=== PATIENT | male | born 1965 | race Caucasian/White ===

== ENCOUNTER → 2016-08-17 | Outpatient (CLI) | payer OTHER ==
[~2016-08-17] MED LIST: /LINE60TA; ACET-71 PO; ASPI32ECTA PO; B12-1CHW PO; BACI500O8 TOP; BACT800T; CLEO150C PO; COLA100C PO; DILA2TAB2 PO; DIVA500T9 PO; FERR325T3 PO; FLUO40CA PO; GEOD40CA; HEPA100PFS INJ; HYDR-3713 PO; HYDR25TAB PO; LIPI80TA PO; LISI-538 PO; NORCOTAB PO; OMEP20CA3 PO; PANT40TA2 PO; PEPCID; PRIN20TA3 PO; PROZ40CA; SALI0.9I2 IV; TYLE325T5 PO; VALI5TAB PO; VANC10005 IV; VICO5TAB; VICO5TAB16 PO; VITA100037 PO
--- NOTE | 2016-08-17 10:08 | REP ---
MR CERVICAL SPINE WITHOUT CONTRAST: HISTORY: Neck pain. COMPARISON: 06/05/2016 A disc bulge is present at the C2-3 level. There is minimal effacement of the thecal sac without spinal cord compression. The C2 neural foramina are patent. The patient is status post C3 to C6 anterior spinal fusion. A fixation plate and bone graft material are present. Bilateral uncinate process hypertrophy is present at the C3-4 level. This produces moderate narrowing of the C3 neural foramina. The spinal canal at the C3-4 through C5-6 levels is patent. A disc bulge is present at the C6-7 level. There is minimal effacement of the thecal sac without spinal cord compression. The C6 and remaining neural foramina are patent. There is no other disc bulge or herniation. The spinal cord is normal in signal intensity. There is no intradural extramedullary lesion. Normal signal intensity is present in the cervical vertebral bodies. There is subluxation. IMPRESSION: 1. The patient is status post C3 to C6 anterior spinal fusion. There is anatomic alignment of the cervical spine. 2. There is cervical spondylosis at the C2-3, C3-4 and C6-7 levels without spinal cord compression. Signed by Brad Carter MD 08/17/2016 10:10 A
== END ==
LOC: M RAD 08:16
PROVIDERS: ATTEND Neurological Surgery
DX: M47.892 Other spondylosis, cervical region (principal); Z98.1 Arthrodesis status

== ENCOUNTER → 2016-08-26 | Outpatient (CLI) | payer OTHER ==
--- NOTE | 2016-08-27 08:39 | REP ---
MRI LUMBAR SPINE WITHOUT CONTRAST: HISTORY: Spondylosis. Decreased signal intensity on T2-weighted images is present in the L2-3 through L4-5 intervertebral discs. The discs are decreased in height. These findings are consistent with disc degeneration. There is no disc bulge or herniation at the L1-2 and L5-S1 levels. There is hypertrophy of the posterior articulating facets at the L5-S1 level. The nerves exit the neural foramina without compression. A diffuse disc bulge is present at the L1-2 level. There is minimal compression of the thecal sac. There is hypertrophy of the posterior articulating facets. The L2 nerves exit the neural foramina without compression. A diffuse disc bulge is present at the L3-4 level. There is minimal compression of the thecal sac. There is hypertrophy of the posterior articulating facets. The L3 nerves exit the neural foramina without compression. A diffuse disc bulge and small central disc protrusion are present at the L4-5 level. There is minimal compression of the thecal sac. There is hypertrophy of the posterior articulating facets. The L4 nerves exit the neural foramina without compression. The conus medullaris is normal in appearance terminating at the level of the L1-2 intervertebral disc. Normal signal intensity is present in the lumbar vertebral bodies. IMPRESSION: 1. Diffuse disc bulges at the L2-3 and L3-4 levels with minimal thecal sac compression. 2. Diffuse disc bulge and small central disc protrusion at the L4-5 level with minimal thecal sac compression. Signed by Brad Carter MD 08/27/2016 09:05 A
== END ==
LOC: M RAD 16:52
PROVIDERS: ATTEND Neurological Surgery
DX: M47.896 Other spondylosis, lumbar region (principal); M51.26 Other intervertebral disc displacement, lumbar region

== ENCOUNTER → 2016-09-03 | Outpatient (REF) | payer OTHER ==
[2016-09-03 19:23] LABS: MEAN CORPUSCULAR HEMOGLOBIN 21.1 pg (27.0-33.0); MEAN CORPUSCULAR HGB CONC 28.5 g/dl (32.0-36.5); RED CELL DISTRIBUTION WIDTH 17.1 % (11.5-14.5); RETIC HEMOGLOBIN CONTENT CHr 23.7 PG (24-36); RETICULOCYTE % ADVIA2120 1.4 % (0.5-1.5); WHITE BLOOD COUNT 9.8 K/mm3 (4.0-10.0)
[2016-09-03 19:36] LABS: ALBUMIN 3.6 GM/DL (3.2-5.2); ALBUMIN/GLOBULIN RATIO 1.29 (1.00-1.93); ALKALINE PHOSPHATASE 101 U/L (45-117); ALT/SGPT 18 U/L (12-78); ANION GAP 8 MEQ/L (8-16); AST/SGOT 13 U/L (15-37); BILIRUBIN,TOTAL 0.3 MG/DL (0.2-1.0); BLOOD UREA NITROGEN 9 MG/DL (7-18); CALCIUM LEVEL 8.7 MG/DL (8.5-10.1); CARBON DIOXIDE LEVEL 30 MEQ/L (21-32); CHLORIDE LEVEL 104 MEQ/L (98-107); CHOLESTEROL LEVEL 106 MG/DL (<200); CREATININE FOR GFR 1.09 MG/DL (0.70-1.30); FERRITIN 4 NG/ML (26-388); FREE T4 1.07 NG/DL (0.76-1.46); GLOMERULAR FILTRATION RATE > 60.0 (>60); GLUCOSE, FASTING 137 MG/DL (70-105); PERCENT SATURATION 16.1 % (19.7-37.4); POTASSIUM SERUM 4.6 MEQ/L (3.5-5.1); SODIUM LEVEL 142 MEQ/L (136-145); TOTAL IRON BINDING CAPACITY 422 UG/DL (250-450); TOTAL PROTEIN 6.4 GM/DL (6.4-8.2); TRIGLYCERIDES LEVEL 75 MG/DL (<150)
[2016-09-03 19:50] LABS: VITAMIN B12 LEVEL 706 PG/ML (247-911)
== END ==
LOC: M SFHCADAM 13:57
PROVIDERS: ATTEND Family Medicine
DX: T81.4XXD Infection following a procedure, subsequent encounter (principal); Z98.1 Arthrodesis status; Z98.84 Bariatric surgery status; D50.0 Iron deficiency anemia secondary to blood loss (chronic); E78.5 Hyperlipidemia, unspecified

== ENCOUNTER → 2016-10-02 | Outpatient (CLI) | payer OTHER ==
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
== END ==
LOC: M PAIN 11:20
PROVIDERS: ATTEND Anesthesiology
DX: G89.21 Chronic pain due to trauma (principal); M96.1 Postlaminectomy syndrome, not elsewhere classified; Z98.1 Arthrodesis status; M54.12 Radiculopathy, cervical region; G43.709 Chronic migraine without aura, not intractable, without status migrainosus; I10 Essential (primary) hypertension; E78.00 Pure hypercholesterolemia, unspecified; K21.9 Gastro-esophageal reflux disease without esophagitis; D50.9 Iron deficiency anemia, unspecified; R00.1 Bradycardia, unspecified; I25.2 Old myocardial infarction; Z79.2 Long term (current) use of antibiotics; Z79.891 Long term (current) use of opiate analgesic; Z79.899 Other long term (current) drug therapy; Z88.5 Allergy status to narcotic agent; Z87.820 Personal history of traumatic brain injury; Z86.14 Personal history of Methicillin resistant Staphylococcus aureus infection; Z98.84 Bariatric surgery status

== ENCOUNTER → 2016-10-03 | Outpatient (CLI) | payer OTHER ==
--- NOTE | 2016-10-04 07:38 | REP ---
CERVICAL SPINE SERIES: Seven views of the cervical spine are performed. Patient has had prior anterior cervical discectomy and fusion with a metallic plate anteriorly bridging the C3 through the C6 levels, with disc spacers seen at the C3-4, C4-5 and C5-6 disc levels. There is mild disc space narrowing with anterior and posterior osteophytic ridging at C6-7. There is normal cervical lordosis and alignment. There is no subluxation with flexion or extension. There is no radiographic evidence of significant neural foraminal narrowing. IMPRESSION: Patient status post anterior cervical discectomy and fusion C3-C6 with good alignment. Signed by Neto Bryant MD 10/04/2016 01:54 P
== END ==
LOC: M ADAMS 10:18
PROVIDERS: ATTEND Neurological Surgery
DX: M54.81 Occipital neuralgia (principal); Z98.1 Arthrodesis status

== ENCOUNTER → 2016-10-06 | Outpatient (REF) | payer OTHER | LOC: M LAB REF 12:20 | PROVIDERS: ATTEND Neurological Surgery | DX: Z01.818 Encounter for other preprocedural examination (principal); M54.81 Occipital neuralgia ==

== ENCOUNTER → 2016-10-14 | Outpatient (CLI) | payer OTHER ==
[2016-10-14 14:25] LABS: BASO % 0.7 % (0.0-1.0); EOS # 0.1 K/mm3 (0.0-0.50); EOS % 1.8 % (0.0-3.0); LARGE UNSTAINED CELL # 0.1 K/mm3 (0.0-0.4); LYMPH # 1.7 K/mm3 (1.5-4.5); LYMPH % 23.7 % (24.0-44.0); MEAN CORPUSCULAR HEMOGLOBIN 22.7 pg (27.0-33.0); MEAN CORPUSCULAR HGB CONC 30.4 g/dl (32.0-36.5); MEAN CORPUSCULAR VOLUME 74.5 fl (80.0-96.0); MONO # 0.4 K/mm3 (0.0-0.8); MONO % 5.9 % (0.0-5.0); NEUTROPHILS # 4.4 K/mm3 (1.8-7.7); NEUTROPHILS % 65.9 % (36.0-66.0); PLATELET COUNT, AUTOMATED 284 k/mm3 (150-450); WHITE BLOOD COUNT 6.7 K/mm3 (4.0-10.0)
[2016-10-14 14:28] LABS: INR 1.06
[2016-10-14 14:40] LABS: ALBUMIN 3.8 GM/DL (3.2-5.2); ALBUMIN/GLOBULIN RATIO 1.31 (1.00-1.93); ALKALINE PHOSPHATASE 86 U/L (45-117); ALT/SGPT 22 U/L (12-78); ANION GAP 8 MEQ/L (8-16); AST/SGOT 19 U/L (15-37); BILIRUBIN,TOTAL 0.3 MG/DL (0.2-1.0); BLOOD UREA NITROGEN 10 MG/DL (7-18); CALCIUM LEVEL 8.7 MG/DL (8.5-10.1); CARBON DIOXIDE LEVEL 27 MEQ/L (21-32); CHLORIDE LEVEL 107 MEQ/L (98-107); CREATININE FOR GFR 1.09 MG/DL (0.70-1.30); GLOMERULAR FILTRATION RATE > 60.0 (>60); GLUCOSE, FASTING 73 MG/DL (70-105); POTASSIUM SERUM 4.3 MEQ/L (3.5-5.1); SODIUM LEVEL 142 MEQ/L (136-145); TOTAL PROTEIN 6.7 GM/DL (6.4-8.2)
--- NOTE | 2016-10-14 20:33 | REP ---
CHEST X-RAY, PA AND LATERAL: 10/14/2016. Comparison: Portable chest 06/17/2016. Clinical history: Occipital neuralgia. Pre-procedure encounter. Findings: Lung norton are well inflated. There is some minor basilar fibroatelectatic change. I see no pleural effusion or acute infiltrate. No lateral pleural thickening, apical scarring or pneumothorax. The heart is not enlarged. Aorta is minimally tortuous, but normal for age. Airway intact. Plate and screw fixation from previous cervical fusion noted with hardware seen only in part. No mediastinal widening or hilar mass. No acute compression deformity in the spine. Impression: 1. Some minor basilar fibrotic change without acute cardiopulmonary disease. Stable chest. Signed by Virgilio Murcia MD 10/15/2016 09:13 A
== END ==
LOC: M ADAMS 12:24
PROVIDERS: ATTEND Neurological Surgery
DX: Z01.818 Encounter for other preprocedural examination (principal); M54.81 Occipital neuralgia; J84.10 Pulmonary fibrosis, unspecified

== ENCOUNTER → 2016-11-05 | Outpatient (CLI) | payer OTHER ==
[~2016-11-05] MED LIST changes: -COLA100C PO; +COLA100C3 PO
--- NOTE | 2016-11-18 00:33 | ECWPNPC ---
PATIENT NAME: DENISE GILL : 1965 GENDER: MALE VISIT DATE: 11/05/2016 DISCHARGE DATE: 11/05/16 1428 VISIT LOCKED DATE TIME: PHYSICIAN: DESTINY DIAS PHYSICIAN PAGER NO: [phone] RESOURCE: DESTINY DIAS REASON FOR APPOINTMENT 1. HEAD/NECK W/C HISTORY OF PRESENT ILLNESS HISTORY OF PRESENT ILLNESS: PAIN THE PATIENT DESCRIBES THE PAIN... 51 YEAR OLD MALE PATIENT WITH HISTORY OF CHRONIC NECK AND HEAD PAIN. PATIENT DESCRIBES THE PAIN ACHING AND THROBBING WITH A PAIN SCORE OF 7/10 ON TODAY'S VISIT. 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 PATIENT WAS INJURED WHEN A BARN DOOR SLIDE DOWN AND HIT HIM, INJURING HIS NECK AND HEAD. PATIENT REPORTS THAT HE HAS HAD SURGERY ON HIS NECK ONE WEEK AFTER THE INJURY DATE. PATIENT STATES THAT PHYSICAL THERAPY ONLY MADE THE PAIN WORST ESPECIALLY WHEN THEY USE THE TENS UNITS. PATIENT STATES THAT SOMETIMES HE HAS RADIATING PAIN DOWN THE ARMS, BUT TODAY HE DOES NOT HAVE IT. PATIENT STATES HE SUFFERS FROM HEADACHES EVERYDAY. PATIENT STATES THAT HE HAS DIFFICULTIES SLEEPING AT NIGHT DUE TO THE PAIN. PATIENT STATES THAT HE IS HAVING A PROCEDURE DONE BY DR. KINGSLEY ON DECEMBER 04, 2016 AND AT THIS TIME WOULD LIKE TO HOLD OFF INJECTIONS WITH DR. DIAS. PATIENT DENIES UNEXPLAINABLE WEIGHT LOSS, FEVER, CHILLS, NEW CHANGES ON HIS URINARY OR BOWEL CONTROL. FALL RISK SCREENING: SCREENING :NO FALLS IN THE PAST YEAR CURRENT MEDICATIONS TAKING GABAPENTIN 300 MG CAPSULE 1 CAPSULE ORALLY TID TAKING HYDROCODONE-ACETAMINOPHEN 7.5-325 MG TABLET 1 TABLET NEEDED ORALLY BID NEEDED FOR PAIN MDD2 TAKING ATORVASTATIN CALCIUM 80 MG TABLET 1 TAB ORAL DAILY TAKING LISINOPRIL 20 MG TABLET 1 TAB ORALLY DAILY TAKING IRON 325 (65 FE) MG TABLET 1 TABLET ORALLY TWICE DAILY TAKING OMEPRAZOLE 20 MG CAPSULE DELAYED RELEASE 1 CAP ORALLY TWICE DAILY NEEDED TAKING PROCHLORPERAZINE MALEATE 10 MG TABLET 1 TABLET ORALLY THREE TIMES DAILY NEEDED TAKING TOPIRAMATE 25 MG TABLET 1 TABLET ORALLY TWICE A DAY TAKING VITAMIN D3 2000 UNIT CAPSULE 1 CAPSULE ORALLY ONCE A DAY NOT-TAKING HYDROCODONE-ACETAMINOPHEN 5-325 MG TABLET 1 TABLET NEEDED ORALLY EVERY 6 HRS NOT-TAKING HYDROCODONE-ACETAMINOPHEN 7.5-325 MG TABLET 1 TABLET NEEDED ORALLY BID MEDICATION LIST REVIEWED AND RECONCILED WITH THE PATIENT PAST MEDICAL HISTORY HYPERTENSION HIGH CHOLESTEROL GERD POST-OP INFECTED CERVICAL SEROMA/MRSA 05/17 ECHO 10/14--EF65%, LAE 45 MM, AO SCLEROSIS CHRONIC IRON DEFICIENCY ANEMIA, ON IRON "FOR YEARS", IRON STUDIES LOW 09/18 BRADYCARDIA, W/U DIANE AND ECHO DR KEATING S/P GASTRIC BYPASS SX, 290# WT LOSS HEAD TRAUMA FROM FALLEN DOOR CAD, HX NM 1988 ALLERGIES TRAMADOL HCL: DIZZY- "WIERD ACTING": ALLERGY SURGICAL HISTORY CERVICAL FUSION 05/2016 GASTRIC BYPASS 2006 RIGHT OCCIPITAL BLOCK 2015 RIGHT OCCIPITAL BLOCK 2015 COLONOSCOPY (HYPERPLASTIC POLYPS ONLY) 11/14 JEJUNAL ULCER (NOT BLEEDING) 11/14 CARDIAC CATH WITH STENTS 1990 ALL TEETH EXTRACTED 09/2016 FAMILY HISTORY FATHER: , DIAGNOSED WITH DIABETES, HYPERTENSION MOTHER: ALIVE, DIAGNOSED WITH HYPERTENSION SOCIAL HISTORY GENERAL: SABIANIST SABIANIST NO PREFERENCE LEARNING BARRIERS / SPECIAL NEEDS BARRIERS TO LEARNING?NO HEARING IMPAIRED?NO VISION IMPAIRED?YES :CORRECTIVE LENSES COGNITIVELY IMPAIRED?NO READINESS TO LEARN?YES LEARNING PREFERENCES?NO LEARNING CAPABILITIES PRESENT?YES EMOTIONAL BARRIERS?NO SPECIAL DEVICES?NO DOCUMENTATION SPEC NEEDED?NO PAIN CLINIC PFS, CLERGY, PUBLIC HEALTH REFERRALS CLERGY REFERRAL NEEDED?NO WAS THE PROVIDER NOTIFIED OF ANY PERTINENT INFO?NO PFS REFERRAL NEEDED?NO PUBLIC HEALTH REFERRAL NEEDED?NO PATIENT: ____. ADVANCED DIRECTIVES HEALTH CARE PROXY?YES NAME OF HCP DANNA GILL CONTACT # FOR HCP DO YOU HAVE A COPY WITH YOU?NO HOSPITALIZATION/MAJOR DIAGNOSTIC PROCEDURE RELATED TO SURGERY ADMITTED DUE TO INFECTION CONCUSSION/HEADINJURY 05/17 NM 1990 REVIEW OF SYSTEMS CONSTITUTIONAL: ANY CHANGE IN YOUR MEDICAL CONDITION? NO . CHILLS NO . FEVER NO . INFECTION: DO YOU HAVE NEW INFECTIONS? NO . DO YOU HAVE HISTORY OF MRSA? NO . MUSCULOSKELETAL: ANY NEW PATTERNS OF PAIN OR NUMBNESS? NO . GASTROENTEROLOGY: ANY NEW CHANGE IN BOWEL CONTROL? NO . GENITOURINARY: ANY NEW CHANGE IN BLADDER CONTROL? NO . IS THERE A CHANCE YOU COULD BE ? NO . HEMATOLOGY/LYMPH: DO YOU TAKE ANY BLOOD THINNERS? (FOR EXAMPLE- COUMADIN, PLAVIX, AGGRENOX, PLATEL, PRADAXA, OR XARELTO) NO . WHEN WAS YOUR LAST DOSE? DATE: TIME: . NEUROLOGY: HAVE YOU FALLEN IN THE PAST 6 MONTHS? NO . ANY NEW EXTREMITY NUMBNESS OR WEAKNESS? NO . CARDIOLOGY: DO YOU HAVE A PACEMAKER OR DEFIBRILLATOR? NO . RESPIRATORY: HAVE YOU BEEN SICK IN THE PAST WEEK? NO . FEVER NO . FLU LIKE SYMPTOMS? NO . COUGH NO . INTEGUMENTARY: DO YOU HAVE ANY RASHES OR OPEN SORES? NO . ALLERGIC/IMMUNO: ARE YOU ALLERGIC TO SHELLFISH OR IV DYE? NO . ANY NEW ALLERGIES? NO . PSYCHIATRIC: DO YOU HAVE THOUGHTS OF HURTING YOURSELF OR SOMEONE ELSE? NO . ARE YOU ABUSED, NEGLECTED, OR IN AN UNSAFE ENVIRONMENT? NO . ENDOCRINOLOGY: ARE YOU DIABETIC? NO . OTHER: DO YOU NEED ANY PRESCRIPTIONS? NO . IF YES, PLEASE LIST: ____ . ANY NEW PROBLEMS WITH YOUR MEDICATIONS? NO . WHEN DID YOU LAST EAT? ____ . WHEN DID YOU LAST DRINK? ____ . WHAT DID YOU LAST DRINK? ____ . NAME OF PERSON DRIVING YOU HOME? ____ . DO YOU HAVE ANY OTHER QUESTIONS OR CONCERNS NO . REVIEWED BY: PROVIDER: DESTINY DIAS MD . VITAL SIGNS WT 201.6 LBS, HT 5'9", BMI 29.77 INDEX, BP 143/82 MM HG, HR 75 /MIN, RR 18 /MIN, TEMP 98.5 F, OXYGEN SAT % 99, NA INITIALS HS, REVIEWED BY: LOU. EXAMINATION : PATIENT IS ALERT O X 3 AND COOPERATIVE. PATIENT AMBULATES WITH A LIMP ON THE RIGHT LEG. PATIENT IS ABLE TO EXTEND HIS NECK TO 15 DEGREES AND FLEX HIS NECK TO 20 DEGREES. LATERAL MOVEMENT OF THE NECK TO THE LEFT IS 45 DEGREES AND TO THE RIGHT IS 10 DEGREES. ABDUCTION OF THE UPPER EXTREMITIES RIGHT ARM TO SHOULDER LEVEL, LEFT ARM 100 PERCENT. THERE IS TENDERNESS IN THE CERVICAL PARASPINAL MUSCLE GROUP WITH BANDS OF TISSUES, RESTRICTION OF MOVEMENT, AND PRESENCE OF TRIGGER POINTS. PATIENT'S RIGHT ARM IS WEAKER AT FLEXION AND EXTENSION. 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 ASSESSMENTS CERVICAL RADICULOPATHY - M54.12 (PRIMARY) CHRONIC MIGRAINE WITHOUT AURA, NOT INTRACTABLE, WITHOUT STATUS MIGRAINOSUS - G43.709 POSTLAMINECTOMY SYNDROME, NOT ELSEWHERE CLASSIFIED - M96.1 TREATMENT CERVICAL RADICULOPATHY REFILL HYDROCODONE-ACETAMINOPHEN TABLET, 7.5-325 MG, 1 TABLET NEEDED, ORALLY (CODE D CHRONIC PAIN ), BID NEEDED FOR PAIN MDD2, 90 DAYS, 180, REFILLS 0 NOTES: WE DISCUSSED SEVERAL ISSUES WITH MR. GILL'S PATTEN MANAGEMENT CASE. AT THIS TIME THE PATIENT IS USING HYDROCODONE FOR SOMATIC PAIN, AND TOPIRAMATE FOR NEUROPATHIC PAIN AND HEADACHES. I WILL HAVE THE PATIENT START ON TIZANIDINE TODAY FOR SPASTICITY. I WILL ORDER A UTOX TODAY. I DISCUSSED WITH THE PATIENT TO CONSIDER INTERVENTIONS SUCH FACET BLOCK, BOTOX, AND TPI. PATIENT WILL FOLLOW UP WITH ME IN 10 WEEKS. INSTRUCTIONS WERE GIVEN, QUESTIONS WERE ANSWERED, PATIENT REPORTS UNDERSTANDING AND AGREES WITH THE PLAN. I, MARTIN WALTON, DOCUMENTED THE ABOVE INFORMATION ACTING A SCRIBE FOR DR. DIAS. I HAVE REVIEWED THE ABOVE DOCUMENT, WRITTEN BY MARTIN WALTON SCRIBE AND I VERIFY THAT IT IS ACCURATE. ,. OTHERS REFILL TOPIRAMATE TABLET, 25 MG, 1 TABLET, ORALLY, TWICE A DAY FOR PAIN, 30 DAY(S), 50, REFILLS 2 START TIZANIDINE HCL TABLET, 2 MG, 1 TABLET NEEDED, ORALLY FOR SPASMS AND PAIN, BEFORE BEDTIME MAY REPEAT 4 HRS AFTER MDD2, 30 DAY(S), 50, REFILLS 3 PROCEDURES PN WORKMANS' COMP OPINION IN YOUR OPINION, WAS THE INCIDENT THAT THE PATIENT DESCRIBED THE COMPETENT MEDICAL CAUSE OF THIS INJURY/ILLNESS? YES ARE THE PATIENT'S COMPLAINTS CONSISTENT WITH HIS/HER HISTORY OF THE INJURY/ILLNESS? YES IS THE PATIENT'S HISTORY OF THE INJURY/ILLNESS CONSISTENT WITH YOUR OBJECTIVE FINDING? YES WHAT IS THE PERCENTAGE OF TEMPORARY IMPAIRMENT? MODERATE TO MARKED = 66.7% IS THE PATIENT WORKING? NO DOCTOR ON SITE: DESTINY GARNETT MD PREVENTIVE MEDICINE PAIN CLINIC TEACHING: MEDICATIONS PRINTED TIZANIDINE HANDOUTS GIVEN/REVIEWED WITH PT.. PROCEDURE CODES FA211 ESTABILISHED PATIENT [facility] CHARGE G8730 PAIN ASSESS POS TOOL F/U PLAN DOC G8427 DOC MEDS VERIFIED W/PT OR RE DISPOSITION & COMMUNICATION FOLLOW UP 10 WEEK ELECTRONICALLY SIGNED BY DESTINY DIAS MD ON 11/16/2016 AT 08:18 AM EDT DISCLAIMER : THIS IS A VISIT SUMMARY EXTRACTED FROM THE [employer] CHART. IT IS NOT A COPY OF THE [employer] PROGRESS NOTE. YAIR
== END ==
LOC: M PAIN 13:40
PROVIDERS: ATTEND Anesthesiology
DX: Z09 Encounter for follow-up examination after completed treatment for conditions other than malignant neoplasm (principal); G89.29 Other chronic pain; M54.12 Radiculopathy, cervical region; G43.709 Chronic migraine without aura, not intractable, without status migrainosus; M96.1 Postlaminectomy syndrome, not elsewhere classified; I10 Essential (primary) hypertension; E78.00 Pure hypercholesterolemia, unspecified; K21.9 Gastro-esophageal reflux disease without esophagitis; D64.9 Anemia, unspecified; I25.2 Old myocardial infarction; Z88.5 Allergy status to narcotic agent; Z79.899 Other long term (current) drug therapy; Z87.820 Personal history of traumatic brain injury

== ENCOUNTER → 2016-11-17 | Outpatient (CLI) | payer OTHER ==
[~2016-11-17] MED LIST changes: +HYDR-3716 PO; +TIZA2CAP3 PO
[2016-11-17 15:58] LABS: BASO % 0.6 % (0.0-1.0); EOS # 0.2 K/mm3 (0.0-0.50); EOS % 2.5 % (0.0-3.0); LARGE UNSTAINED CELL # 0.2 K/mm3 (0.0-0.4); LARGE UNSTAINED CELL % 2.4 % (0.0-4.0); LYMPH # 1.8 K/mm3 (1.5-4.5); MEAN CORPUSCULAR HEMOGLOBIN 23.8 pg (27.0-33.0); MEAN CORPUSCULAR HGB CONC 30.2 g/dl (32.0-36.5); MEAN CORPUSCULAR VOLUME 78.8 fl (80.0-96.0); MONO # 0.6 K/mm3 (0.0-0.8); MONO % 6.7 % (0.0-5.0); NEUTROPHILS # 6.5 K/mm3 (1.8-7.7); NEUTROPHILS % 70.8 % (36.0-66.0); PLATELET COUNT, AUTOMATED 284 k/mm3 (150-450); RED CELL DISTRIBUTION WIDTH 18.6 % (11.5-14.5); WHITE BLOOD COUNT 9.2 K/mm3 (4.0-10.0)
[2016-11-17 16:10] LABS: INR 1.02
[2016-11-17 16:39] LABS: ALBUMIN 3.4 GM/DL (3.2-5.2); ALBUMIN/GLOBULIN RATIO 1.21 (1.00-1.93); ALKALINE PHOSPHATASE 87 U/L (45-117); ALT/SGPT 24 U/L (12-78); ANION GAP 7 MEQ/L (8-16); AST/SGOT 15 U/L (15-37); BILIRUBIN,TOTAL 0.3 MG/DL (0.2-1.0); BLOOD UREA NITROGEN 15 MG/DL (7-18); CALCIUM LEVEL 8.6 MG/DL (8.5-10.1); CARBON DIOXIDE LEVEL 27 MEQ/L (21-32); CHLORIDE LEVEL 107 MEQ/L (98-107); CREATININE FOR GFR 1.05 MG/DL (0.70-1.30); GLOMERULAR FILTRATION RATE > 60.0 (>60); GLUCOSE, FASTING 72 MG/DL (70-105); POTASSIUM SERUM 4.7 MEQ/L (3.5-5.1); SODIUM LEVEL 141 MEQ/L (136-145); TOTAL PROTEIN 6.2 GM/DL (6.4-8.2)
--- NOTE | 2016-11-17 19:04 | ECGEPIP ---
Stationary ECG Study [facility] Test Date: 2016-11-17 Pat Name: DENISE GILL Department: Room: - Gender: M House Sitter: CASANDRA : 1965 Requested By: NGHIA Levi Order Number: [id number] Reading MD: Rehan Goyal Measurements Intervals [place] Rate: 48 P: 52 TN: 153 QRS: 4 QRSD: 118 T: 22 QT: 405 QTc: 362 Interpretive Statements SINUS BRADYCARDIA MODERATE INTRAVENTRICULAR CONDUCTION DELAY Rate increased from 06-18-16 tracing Electronically Signed On 11-17-2016 19:04:06 EDT by Rehan Goyal
== END ==
LOC: M LAB 14:50
PROVIDERS: ATTEND Neurological Surgery
DX: Z01.818 Encounter for other preprocedural examination (principal); R00.1 Bradycardia, unspecified

== ENCOUNTER → 2016-12-01 | Day surgery (SDC) | payer OTHER ==
[~2016-12-01] VITALS: Ht 172.7 cm; Wt 86.2 kg
[~2016-12-01] MED LIST changes: +BACITRACIN PWD 50,000 UNITS VIAL As Ordered ONE; +CEFUROXIME SODIUM 1.5 GM in D5W MINI-BAG PLUS 50 ML IV ONE; +GABA-282 PO; +HYDROmorphone HCL 1 MG/ML SYRINGE (J1170) IV PRN; +LIDOCAINE 2% INJ 100 MG/5 ML SDV (FOR ANES.) As Ordered ONE; +LIDOCAINE W/EPINEPHRINE 1% 20ML VIAL As Ordered ONE; +LR 1,000 ML IV ONE; +LR 1,000 ML IV SCH; +MIDAZOLAM INJ 2 MG/2 ML VIAL (J2250) As Ordered ONE; +NORCO, ANEXSIA 5/325MG TABLET (HYDROcodone/ACETAMINOPHEN) PO PRN; +ONDANSETRON 4MG/2ML VIAL (J2405) As Ordered ONE; +ONDANSETRON 4MG/2ML VIAL (J2405) IV PRN; +PERCOCET 5MG/325MG TAB As Ordered ONE; +PROPOFOL 200 MG/20 ML VIAL As Ordered ONE; +PROPOFOL 500 MG/50 ML VIAL As Ordered ONE; +SEVOFLURANE INHAL SOLN 250 ML BTL As Ordered ONE; +dexameTHASONE 4 MG/ML 1ML VIAL (J1100) IV ONE; +ePHEDrine SULFATE 25 MG/5 ML(5MG/ML) SYRINGE As Ordered ONE; +fentaNYL 100 MCG/2 ML INJECTION (J3010) As Ordered ONE; +fentaNYL 100 MCG/2 ML INJECTION (J3010) IV PRN; +methylPREDNISolone SUSP 40 MG/ML (DEPO-medrol) VIAL (J1030) As Ordered ONE
[2016-12-01] MEDS: PERCOCET 5MG/325MG TAB PO PRN ×2 (10:00→11:20)
[2016-12-01 11:37] VITALS: BP 160/92
--- NOTE | 2016-12-02 00:30 | RO ---
DATE OF PROCEDURE: 12/01/2016 PREPROCEDURE DIAGNOSES: Cervical spondylosis with myelopathy including autonomic dysreflexia, occipital neuralgia, intractable headaches. POSTPROCEDURE DIAGNOSES: Cervical spondylosis with myelopathy including autonomic dysreflexia, occipital neuralgia, intractable headaches. PROCEDURE: Decompression of lesser and greater occipital nerves with distal greater occipital neurectomy. SURGEON: Danielle Quintero MD ROD WELDER: COLTON Lund ANESTHESIA: Anesthesia block and conscious sedation. FINDINGS: Please see my office notes for detailed preoperative evaluation and discussions. Patient had developed severe occipital neuralgia after an injury he sustained while at work when a large garage/barn door fell on him and knocked him unconscious. Patient was seen n the preoperative area with his mother. Physical examination was unchanged since the last evaluation. Patient was aware of all options, risks, scope, expected outcome, sequelae, and all complications of the proposed surgery and wished to proceed with the same. DESCRIPTION OF PROCEDURE: Once in the operating room, patient was laid in a park bench position with the left side up. The area was prepped and draped in the usual sterile fashion. The incision line was infiltrated and occipital block was given. After adequate prep and drape, the incision line was infiltrated with 1:100 epinephrine. After the occipital block was given, patient reported resolution of his symptoms. The incision was given for about an inch and a half or so. It was pointed toward the lateral mass of C2. Alveolar layer was reached and incised. Cut edges of the blood vessels were coagulated with the bipolar cautery. Deep fascia was opened. The distal branches of the lesser and greater occipital nerve were identified. The lesser occipital nerve was externally neurolysed and, similarly, the greater occipital nerve was decompressed from surrounding scar tissue. The occipital vein and vessel artery were in close proximity to the distal occipital nerve and appeared to be compressing and indenting the nerve. There was also a lymph node which was further compressing the occipital nerve. This was removed and sent for pathological examination. Hemostasis was checked and secured. Blood loss was negligible. At this time, the wound was closed in anatomic layers. Patient tolerated the procedure well and claimed that he no longer had headaches. Followup instructions were given to his mother, and above findings were also discussed with him in the waiting room.
== END | disposition home or self-care (01) ==
LOC: M SDC 05:43
PROVIDERS: ATTEND Neurological Surgery
DX: M47.12 Other spondylosis with myelopathy, cervical region (principal); M54.81 Occipital neuralgia; I11.9 Hypertensive heart disease without heart failure; Z98.84 Bariatric surgery status; G43.709 Chronic migraine without aura, not intractable, without status migrainosus; E78.5 Hyperlipidemia, unspecified; E55.9 Vitamin D deficiency, unspecified; D50.9 Iron deficiency anemia, unspecified; Z87.891 Personal history of nicotine dependence
CPT/HCPCS: 64722; 64744; 88305; J0697; J1030; J1100; J2250; J3010

== ENCOUNTER 2016-12-31 12:31 | Emergency (ER) | payer OTHER ==
[~2016-12-31] VITALS: Ht 172.7 cm; Wt 90.7 kg
[~2016-12-31 12:31] MED LIST changes: -BACITRACIN PWD 50,000 UNITS VIAL As Ordered ONE; -CEFUROXIME SODIUM 1.5 GM in D5W MINI-BAG PLUS 50 ML IV ONE; -HYDROmorphone HCL 1 MG/ML SYRINGE (J1170) IV PRN; -LIDOCAINE 2% INJ 100 MG/5 ML SDV (FOR ANES.) As Ordered ONE; -LIDOCAINE W/EPINEPHRINE 1% 20ML VIAL As Ordered ONE; -LR 1,000 ML IV ONE; -LR 1,000 ML IV SCH; -MIDAZOLAM INJ 2 MG/2 ML VIAL (J2250) As Ordered ONE; -NORCO, ANEXSIA 5/325MG TABLET (HYDROcodone/ACETAMINOPHEN) PO PRN; -ONDANSETRON 4MG/2ML VIAL (J2405) As Ordered ONE; -ONDANSETRON 4MG/2ML VIAL (J2405) IV PRN; -PERCOCET 5MG/325MG TAB As Ordered ONE; -PROPOFOL 200 MG/20 ML VIAL As Ordered ONE; -PROPOFOL 500 MG/50 ML VIAL As Ordered ONE; -SEVOFLURANE INHAL SOLN 250 ML BTL As Ordered ONE; -dexameTHASONE 4 MG/ML 1ML VIAL (J1100) IV ONE; -ePHEDrine SULFATE 25 MG/5 ML(5MG/ML) SYRINGE As Ordered ONE; -fentaNYL 100 MCG/2 ML INJECTION (J3010) As Ordered ONE; -fentaNYL 100 MCG/2 ML INJECTION (J3010) IV PRN; -methylPREDNISolone SUSP 40 MG/ML (DEPO-medrol) VIAL (J1030) As Ordered ONE
[2016-12-31] MEDS ORDERED: PROC10TA PO (13:20)
[2016-12-31] MEDS ORDERED: TOPI25TA5 PO (13:20)
[2016-12-31] MEDS ORDERED: ONDANSETRON 4MG/2ML VIAL (J2405) IV ONE (13:30)
[2016-12-31] MEDS ORDERED: MORPHINE 10 MG/ML 1ML VIAL IV ONE (13:30)
[2016-12-31] MEDS ORDERED: SODIUM CHLORIDE 0.9% 1000 ML IV ONE (13:30)
[2016-12-31] MEDS ORDERED: MORPHINE 4 MG/ML 1ML SYRINGE IV ONE (13:45)
[2016-12-31 14:15] LABS: BASO % 0.2 % (0.0-1.0); EOS # 0.1 K/mm3 (0.0-0.50); EOS % 0.6 % (0.0-3.0); LARGE UNSTAINED CELL # 0.1 K/mm3 (0.0-0.4); LARGE UNSTAINED CELL % 0.8 % (0.0-4.0); LYMPH # 0.9 K/mm3 (1.5-4.5); LYMPH % 6.5 % (24.0-44.0); MEAN CORPUSCULAR HEMOGLOBIN 25.8 pg (27.0-33.0); MEAN CORPUSCULAR HGB CONC 31.1 g/dl (32.0-36.5); MEAN CORPUSCULAR VOLUME 82.9 fl (80.0-96.0); MONO # 0.8 K/mm3 (0.0-0.8); MONO % 6.1 % (0.0-5.0); NEUTROPHILS # 10.6 K/mm3 (1.8-7.7); NEUTROPHILS % 85.8 % (36.0-66.0); PLATELET COUNT, AUTOMATED 218 k/mm3 (150-450); RED CELL DISTRIBUTION WIDTH 18.3 % (11.5-14.5); WHITE BLOOD COUNT 12.3 K/mm3 (4.0-10.0)
[2016-12-31 14:34] LABS: ANION GAP 12 MEQ/L (8-16); BLOOD UREA NITROGEN 12 MG/DL (7-18); CALCIUM LEVEL 8.9 MG/DL (8.5-10.1); CARBON DIOXIDE LEVEL 22 MEQ/L (21-32); CHLORIDE LEVEL 103 MEQ/L (98-107); CREATININE FOR GFR 0.99 MG/DL (0.70-1.30); GLOMERULAR FILTRATION RATE > 60.0 (>60); GLUCOSE, FASTING 90 MG/DL (70-105); POTASSIUM SERUM 4.5 MEQ/L (3.5-5.1); SODIUM LEVEL 137 MEQ/L (136-145)
[2016-12-31] MEDS ORDERED: ISOVUE-370 76% 100ML VIAL (Q9967) As Ordered ONE (14:45)
[2016-12-31 15:09] LABS: ERYTHROCYTE SEDIMENTATION RATE 1 mm/hr (0-15)
--- NOTE | 2016-12-31 15:26 | REP ---
CT NECK WITH CONTRAST: HISTORY: Occipital pain. CONTRAST: Isovue 370, 75 mL. COMPARISON: 06/17/2016 The naso-, erlin-, and hypopharynx, larynx and subglottic trachea are normal in appearance. The salivary and thyroid glands are normal. Small lymph nodes less than 1 cm in size are present in the internal jugular chains, posterior triangles, submandibular and submental areas. The patient is status post C3 to C6 anterior spinal fusion. A fixation plate and bone graft material are present. Increased density is present in the left posterior paravertebral and subcutaneous soft tissue. This extends from the occiput inferior the C4-5 level. This is consistent with the edema or cellulitis. IMPRESSION: 1. Edema or cellulitis in the left posterior paravertebral and subcutaneous tissue extending from the occiput inferior to the C4-5 level. Signed by Brad Carter MD 12/31/2016 03:35 P
[2016-12-31] MEDS ORDERED: VICO5TAB16 PO (15:28)
[2016-12-31] MEDS ORDERED: CLIN1CAP5 PO (15:30)
[2016-12-31] MEDS ORDERED: VANCOMYCIN HCL 1,000 MG, VIAL MATE ADAPTER 1 EACH in D5W 250 ML IV ONE (15:30)
[2016-12-31] MEDS ORDERED: ACETAMINOPHEN 325 MG TAB PO ONE (15:45)
[2016-12-31 16:49] VITALS: BP 128/71
[2017-01-01] MEDS ORDERED: CLIN1CAP5 PO (12:38)
[2017-01-01] MEDS ORDERED: VITA10002 PO (12:38)
[2017-01-01] MEDS ORDERED: VITA500T88 PO (12:38)
== END 2016-12-31 16:51 | disposition home or self-care (01) ==
LOC: M ED 13:45
DX: L03.90 Cellulitis, unspecified (principal); T81.9XXA Unspecified complication of procedure, initial encounter; I50.9 Heart failure, unspecified; I10 Essential (primary) hypertension; Z79.899 Other long term (current) drug therapy; Z88.6 Allergy status to analgesic agent; Z88.5 Allergy status to narcotic agent
CPT/HCPCS: 70491; 80048; 85025; 85652; 86140; 87040; 96374; 96375; 99282; J2405; J3370; Q9967

== ENCOUNTER 2017-01-01 10:07 | Inpatient (IN) | payer OTHER ==
[~2017-01-01] VITALS: Ht 172.7 cm; Wt 88.8 kg
[~2017-01-01 10:07] MED LIST changes: -ACET-71 PO; +ACET1TAB16 PO; +ASPI325T24 PO; -ASPI32ECTA PO; +CLIN150C14 PO; -COLA100C3 PO; +COLA100C5 PO; -DILA2TAB2 PO; +DILA2TAB6 PO; +PROC10TA PO; +TOPI25TA10 PO; -VITA100037 PO; +VITA100067 PO
[2017-01-01] MEDS ORDERED: CEFTAROLINE FOSAMIL 600 MG in D5W MINI-BAG PLUS 50 ML IV ONE (12:15)
[2017-01-01] MEDS ORDERED: NS 1,000 ML IV ONE ×2 (12:15→14:45)
[2017-01-01] MEDS ORDERED: ACETAMINOPHEN 325 MG TAB PO ONE ×2 (12:30→18:00)
[2017-01-01] MEDS ORDERED: MORPHINE 4 MG/ML 1ML SYRINGE IV ONE ×2 (12:30→15:30)
[2017-01-01] MEDS: ONDANSETRON 4MG/2ML VIAL (J2405) IV PRN ×2 (12:36→12:41)
[2017-01-01] MEDS ORDERED: VITA500T88 PO (12:38)
[2017-01-01] MEDS ORDERED: CLIN150C14 PO (12:38)
[2017-01-01] MEDS ORDERED: VITA10002 PO (12:38)
[2017-01-01 12:54] LABS: BASO % 0.3 % (0.0-1.0); EOS # 0.2 K/mm3 (0.0-0.50); EOS % 1.2 % (0.0-3.0); LARGE UNSTAINED CELL # 0.3 K/mm3 (0.0-0.4); LARGE UNSTAINED CELL % 1.5 % (0.0-4.0); LYMPH # 1.1 K/mm3 (1.5-4.5); LYMPH % 6.4 % (24.0-44.0); MEAN CORPUSCULAR HEMOGLOBIN 26.7 pg (27.0-33.0); MEAN CORPUSCULAR VOLUME 83.4 fl (80.0-96.0); MONO # 0.8 K/mm3 (0.0-0.8); MONO % 4.7 % (0.0-5.0); NEUTROPHILS # 14.8 K/mm3 (1.8-7.7); NEUTROPHILS % 85.9 % (36.0-66.0); PLATELET COUNT, AUTOMATED 201 k/mm3 (150-450); RED CELL DISTRIBUTION WIDTH 18.1 % (11.5-14.5); WHITE BLOOD COUNT 17.2 K/mm3 (4.0-10.0)
[2017-01-01 13:04] LABS: ANION GAP 7 MEQ/L (8-16); BLOOD UREA NITROGEN 8 MG/DL (7-18); CALCIUM LEVEL 8.5 MG/DL (8.5-10.1); CARBON DIOXIDE LEVEL 24 MEQ/L (21-32); CHLORIDE LEVEL 102 MEQ/L (98-107); CREATININE FOR GFR 1.06 MG/DL (0.70-1.30); GLOMERULAR FILTRATION RATE > 60.0 (>60); GLUCOSE, FASTING 98 MG/DL (70-105); POTASSIUM SERUM 4.4 MEQ/L (3.5-5.1); SODIUM LEVEL 133 MEQ/L (136-145)
[2017-01-01 14:03] LABS: ERYTHROCYTE SEDIMENTATION RATE 8 mm/hr (0-15)
[2017-01-01] MEDS ORDERED: KETOROLAC 30 MG/ML VIAL (J1885) IV ONE (16:00)
--- NOTE | 2017-01-01 16:02 | REP ---
MR CERVICAL SPINE WITHOUT AND WITH CONTRAST: HISTORY: Cellulitis. CONTRAST: ProHance 18 mL. COMPARISON: MR 08/17/[address] neck 12/31/2016. A disc bulge is present at the C2-3 level. There is minimal effacement of the thecal sac without spinal cord compression. The C2 neural foramina are patent. The patient is status-post C3 to 6 anterior spinal fusion. A fixation plate and bone graft material are present. Bilateral uncinate process hypertrophy is present at the C3-4 level. This produces moderate narrowing of the C3 neural foramina. The spinal canal at the C4-5 and C5-6 levels is patent. A disc bulge is present at the C6-7 level. There is minimal effacement of the thecal sac without spinal cord compression. The C6 neural foramina are patent. There is no other disc bulge or herniation. The remaining neural foramina are patent. The spinal cord is normal in signal intensity. Normal signal intensity is present in the cervical vertebral bodies. There is no subluxation. Increased signal intensity on T2 weighted images is present in the left posterior subcutaneous tissue and splenius capitus and trapezius muscles. This is consistent with edema or cellulitis. There is very minimal enhancement of the musculature. This extends from the C2-3 level inferior to the C5-6 level. The superior most and lateral extent are incompletely seen in the present examination. IMPRESSION: 1. The patient is status-post C3 to 6 anterior spinal fusion. There is anatomic alignment of the cervical spine. 2. There is cervical spondylosis at the C2-3, C3-4, and C6-7 levels without spinal cord compression. 3. There is edema and or cellulitis in the left posterior subcutaneous tissue and paravertebral tissue extending from the C2-3 level inferior to the C5-6 level. Signed by Brad Carter MD 01/01/2017 04:10 P
[2017-01-01] MEDS: NS 1,000 ML IV SCH (18:30)
[2017-01-01] MEDS ORDERED: TOPIRAMATE (TopAMAX) 25 MG TAB PO PRN (18:45)
[2017-01-01] MEDS ORDERED: DOCUSATE SODIUM 100 MG CAP PO PRN (18:45)
[2017-01-01] MEDS ORDERED: PROCHLORPERAZINE 5 MG TAB (S0183) PO PRN (18:45)
[2017-01-01 19:17] LABS: INR 1.1
[2017-01-01] MEDS: ANEXSIA, NORCO 7.5MG/325MG TABLET(HYDROCODONE/APAP) PO PRN (19:31)
--- NOTE | 2017-01-01 19:50 | HPEPDOC ---
General Date of Admission Jan 01, 2017 at 18:31 Primary Care Physician: MELI URIARTE PA-C [facility] Attending Physician: CHELY ALLEN MD Chief Complaint The patient is a 51-year-old male admitted with a reason for visit of Postoperative Wound Infection. Source: Patient History of Present Illness Patient is a 51-year-old male with past medical history of myocardial infarction , coronary artery disease, GERD, status post gastric bypass, and head trauma from a large 500 pounds falling door presents to the ER with chief complaints of pain and redness in the neck. Patient had a left occipital nerve decompression with possible neurectomy on 12/01/[address] Quintero. Patient then presented to the ER yesterday with redness and pain in his neck. This all started yesterday 12/31/2016 when he woke up. Patient felt his neck was sore and thyroid go away. By noon of that day it was still sore very warm. Patient presented to the ER and they discharge patient home on clindamycin with follow- up back up to the ER the next day for checkup. Today patient says that the redness pain has worsened. It has spread up his neck and down the shoulder. The skin is very high warm and patient was feverish. He should took his temperature last night temperature was 102-103F. Patient was also given hydrocodone acetaminophen every 4 hours. On the ER yesterday patient had a CT scan of his neck which revealed edema or cellulitis in the left posterior paravertebral and Ceptaz tissue exiting from the occiput inferior to the C4-C5 level. Patient also had a MRI today of his neck. This showed The patient is status-post C3 to 6 anterior spinal fusion. As well as cervical spondylosis at the C2-3, C3-4, and C6-7 levels without spinal cord compression. In addition it showed edema and or cellulitis in the left posterior subcutaneous tissue and paravertebral tissue extending from the C2-3 level inferior to the C5-6 level. Patient was given pain medication while in the ER as well as substernally and acetaminophen. Patient has a history of having a work related accident. This occurred May last year. 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 After that patient has been seeing Dr. Quintero for management. Patient had a previous neck fusion in May 2016. This became infected. Patient had to have it drained and was started on vancomycin through a PICC line for approximately 9 weeks. Home Medications Scheduled Ascorbic Acid (Vitamin C) 500 Mg Tab, 500 MG PO DAILY, (Reported) Atorvastatin Calcium (Lipitor) 80 Mg Tab, 80 MG PO QHS, (Reported) Clindamycin Hcl (Clindamycin HCl) 150 Mg Cap, 150 MG PO QID, (Reported) Cyanocobalamin (Vitamin B-12) 1,000 Mcg Tab, 1,000 MCG PO DAILY, (Reported) Ferrous Sulfate (Ferrous Sulfate) 325 Mg Tab, 325 MG PO BID, (Reported) Gabapentin (Gabapentin) 300 Mg Cap, 300 MG PO TID, (Reported) Lisinopril (Lisinopril) 20 Mg Tab, 20 MG PO DAILY, (Reported) Omeprazole (Omeprazole) 20 Mg Cap, 20 MG PO DAILY, (Reported) Tizanidine Hydrochloride (Tizanidine HCl) 2 Mg Cap, 2 MG PO DAILY, (Reported) Scheduled PRN Acetaminophen/Hydrocodone (Hydrocodone/Acetaminophen 7.5-325 mg) 1 Tab Tab, 1 TAB PO BIDP PRN for pain, (Reported) Docusate Sodium (Colace) 100 Mg Cap, 100 MG PO BIDP PRN for CONSTIPATION, ( Reported) Prochlorperazine Maleate (Prochlorperazine Maleate) 10 Mg Tab, 10 MG PO TIDP PRN for NAUSEA, (Reported) Topiramate (Topiramate) 25 Mg Tab, 25 MG PO BIDP PRN for MIGRAINE, (Reported) Allergies Coded Allergies: Tramadol (Unverified Allergy, Unknown, DOPEY, TURNED WHITE; ITCHING, ) NSAIDs (Verified Adverse Reaction, Unknown, GASTRIC BYPASS, 11/20/16) Past Medical History Medical History 1. Status post head trauma 2. Coronary artery disease, history of IL and a T9 3. GERD 4. Postop infection of cervical stroma, MRSA May 2016 5. Hypertension 6. Status post gastric bypass 7. Hypercholesterolemia 8. History of anemia, iron deficiency Surgical History 1. Gastric bypass, 15 years ago at [facility] 2. Cervical fusion 3. Occipital nerve block 4. Colonoscopy 5. Cardiac cath with stents 6. Teeth extraction Family History Father: Diabetes and hypertension Mother: Hypertension Social History * Smoker: former Smoker (smoked some in high school ) Alcohol: Denies (has not had anything to drink since the accident.) Drugs: denies Review of Symptoms Constitutional: Reports: Chills (patient was having some chills and shaking today.), Fever (temperature 102-103 Fahrenheit), Fatigue Eyes: Denies: Vision change ENT: Denies: Head Aches, Ear Pain Skin: Reports: Rash (red left neck and shoulder.), Denies: Lesions, Jaundice Pulmonary: Denies: Dyspnea, Cough Cardiovascular: Denies: Chest Pain, Palpitations Gastrointestinal: Denies: Nausea, Vomiting, Abdominal Pain, Diarrhea Genitourinary: Denies: Dysuria, Frequency Hematologic: Denies: Bruising, Bleeding Excessively Musculoskeletal: Denies: Neck Pain, Back Pain Neurological: Reports: Weakness (patient has chronic weakness from the accident on his right side. Patient's right arm and right leg are 4-5 muscle strength. Left arm and left leg are 5 out of 5.), Denies: Numbness, Change in speech, Confusion Psych: Reports: Mood Normal Physical Examination General Exam: Positive: Alert, Cooperative, No Acute Distress Eye Exam: Positive: PERRLA, Conjunctiva & lids normal, EOMI, Negative: Sclera icteric ENT Exam: Positive: Atraumatic, Mucous membr. moist/pink, Pharynx Normal, Tongue Midline Neck Exam: Positive: Supple, Negative: JVD, thyromegaly Chest Exam: Positive: Clear to auscultation, Normal air movement Heart Exam: Positive: Rate Normal, Normal S1, Normal S2, Negative: Gallops, Murmurs, Rubs Abdomen Exam: Positive: Normal bowel sounds Extremity Exam: Negative: Clubbing, Cyanosis Skin Exam: Positive: Nl turgor and temperature, Rash (erythematous, indurated, warm from patient's left cervical spine to midline and anterior to clavicle. Patient has surgical wound site left cervical spine.), Breakdown Neuro Exam: Positive: Normal Gait, Normal Speech, Cranial Nerves 3-12 NL Psych Exam: Positive: Mental status NL, Mood NL, Oriented x 3 Vital Signs Vital Signs Date Time Temp Pulse Resp B/P (MAP) Pulse Ox O2 Delivery O2 Flow Rate FiO2 01/01/17 17:52 100.9 01/01/17 16:53 73 16 122/66 (84) 95 01/01/17 15:29 Room Air Laboratory Data Labs 24H Laboratory Tests 2 01/01/17 12:33: White Blood Count 17.2H, Red Blood Count 5.17, Hemoglobin 13.8L, Hematocrit 43.2 , Mean Corpuscular Volume 83.4, Mean Corpuscular Hemoglobin 26.7L, Mean Corpuscular Hemoglobin Concent 32.0, Red Cell Distribution Width 18.1H, Platelet Count 201, Neutrophils (%) (Auto) 85.9H, Lymphocytes (%) (Auto) 6.4L, Monocytes (%) (Auto) 4.7, Eosinophils (%) (Auto) 1.2, Basophils (%) (Auto) 0.3, Neutrophils # (Auto) 14.8H, Lymphocytes # (Auto) 1.1L, Monocytes # (Auto) 0.8, Eosinophils # (Auto) 0.2, Basophils # (Auto) 0.0, Large Unclassified Cells % 1.5 , Large Unclassified Cells # 0.3, Erythrocyte Sedimentation Rate 8, Anion Gap 7L , Glomerular Filtration Rate > 60.0, Lactic Acid Level 2.1*H, Blood Urea Nitrogen 8, Creatinine 1.06, Sodium Level 133L, Potassium Level 4.4, Chloride Level 102, Carbon Dioxide Level 24, Calcium Level 8.5, C-Reactive Protein, Quantitative 14.80H 01/01/17 18:49: CBC/BMP Laboratory Tests 01/01/17 12:33 Red Blood Count 5.17, Mean Corpuscular Volume 83.4, Mean Corpuscular Hemoglobin 26.7 L, Mean Corpuscular Hemoglobin Concent 32.0, Red Cell Distribution Width 18.1 H, Neutrophils (%) (Auto) 85.9 H, Lymphocytes (%) (Auto) 6.4 L, Monocytes ( %) (Auto) 4.7, Eosinophils (%) (Auto) 1.2, Basophils (%) (Auto) 0.3, Neutrophils # (Auto) 14.8 H, Lymphocytes # (Auto) 1.1 L, Monocytes # (Auto) 0.8 , Eosinophils # (Auto) 0.2, Basophils # (Auto) 0.0, Calcium Level 8.5 Microbiology Microbiology 01/01/17 Blood Culture, Received Pending 01/01/17 Blood Culture, Received Pending Problems (1) Cellulitis Status: Acute Problem Text: Patient has signs of cellulitis. These include the redness warmth swelling and pain. We'll discontinue patient's clindamycin from the ER. Prescribing patient on vancomycin IV. Performing blood cultures 2. Patient's lactic acid in the ER was 2.1, white blood cell count 17, temperature 100.2. C-reactive protein was 14. We'll repeat these labs in the morning and follow him as needed. (2) History of injury Problem Text: Patient had a injury last May of the 500 pound door hitting him. Ever since then patient has had weakness on his right side. This is chronic. No changes in sensation. Continue patient on home medications for pain. This includes hydrocodone acetaminophen 325 7.5, gabapentin 300 mg 3 times a day,prochlorpeaszine maleate. (3) Migraine Problem Text: Patient has a history of migraines and takes Topamax twice daily as needed. We'll continue this while in the hospital. (4) GERD (gastroesophageal reflux disease) Problem Text: Continue patient's home medication. Monitor clinically. (5) History of IL (myocardial infarction) Problem Text: Patient had stents placed in 1990. Patient follows up with Dr. Luna for this. Patient takes atorvastatin at home daily. We'll continue this while in the hospital. (6) History of gastric bypass Problem Text: Patient has a history of gastric bypass. We'll be giving patient a vitamin B supplement daily. Plan / VTE VTE Prophylaxis Ordered?: Yes (compression stockings) Plan Disposition Give patient IV antibiotics and monitor patient on the next couple days. Plan is to have Dr. Pierce infectious disease specialist consult on Wednesday. We'll monitor patient clinically. Follow up on blood cultures and labs. GME ATTESTATION GME ATTESTATION My preceptor for this patient encounter was Dr. Allen and he was physically present in the building during the encounter and was fully available. As needed , all aspects of the patient interview, examination, medical decision making process, and medical care plan development were reviewed and approved by the preceptor. Preceptor is aware and concurs with the plan as stated in the body of this note and will attest to such by his/her cosignature. CHELY OROPEZA DO Jan 01, 2017 19:23
[2017-01-01 20:00] VITALS: BP 122/72
--- NOTE | 2017-01-01 20:01 | PHACANCOPD ---
PHARMACY VANCOMYCIN DOSING Pt Demographics Demographics Patient Age:51 , Weight:90.7KG , Gender: male Adjusted Body Weight Date: 01/01/17, Adjusted Body Weight: Kg Events Past 24 Hours Events Past 24 Hours: YES: Fever, Elevation in WBC, NO: Dialysis, Diuretic Therapy, Change in CrCl, Pending Diagnostics, Pending Procedures, Other Vancomycin Vancomycin indication: Soft tissue infxn Vancomycin Target Ranges: 10-20 mcg/ml Vancomycin Load Y/N: Yes Load Dose Date Time Vancomycin Load Dose: 1500mg Date: 01/01/17 Time: 2100 Vancomycin Dose Date: 01/01/17. Current Vancomycin Dose: [1G q8h@2200] Intermittent Dosing?: No Labs Labs Vital Signs Label Value Date Time Patient Temperature 102.1 degrees F 01/01/17 1653 Temperature Source Oral 01/01/17 1653 Patient Temperature 100.9 degrees F 01/01/17 1752 Temperature Source Oral 01/01/17 1752 Patient Temperature 100.1 degrees F 01/01/17 1921 Temperature Source Oral 01/01/17 1921 Item Value Date Time White Blood Count 17.2 K/mm3 H 01/01/17 1233 Creatinine 1.06 MG/DL 01/01/17 1233 C-Reactive Protein, Quantitative 14.80 MG/DL H 01/01/17 1233 Micro Microbiology 01/01/17 Blood Culture, Received Pending 01/01/17 Blood Culture, Received Pending Creatinine Clearance Date:01/01/17. Creatinine Clearance: [1.06]. Assessment and Plan Maintaining Current Dose?: Yes Reason for dose change: No Dose Change Pharmacist Note Pharmacist Note Date: 01/01/17. Pharmacist note: Patient presented to the ED yesterday with neck swelling and redness. He is approximately 1 month post surgical procedure on nerves in neck. Patient was given 1G Vanco one time dose and Rx for Clindamycin PO 150mg qid. Patient returned today with worsening symptoms (significant increase in redness and swelling). Past wound cultures show resistance to clindamycin; (-) mrsa, but he does have a past history of mrsa in 2008. Patient was last treated successfully with Vanco 1G q8h in June 2016. We started him on Vanco 1500mg LD, followed by 1G IV q8h@2200. We will continue to monitor patient and adjust dose as necessary. DK MARY PHARMACY Jan 01, 2017 20:01
--- NOTE | 2017-01-01 20:32 | IPNPDOC ---
Text Note Date of Service The patient was seen on 01/01/17. NOTE Case was discussed with neurosurgery by ER. Dr. Quintero is away this weekend, but noted this was not a neurosurgical issue, with recommendations for ID consultation and IV vancomycin. Stated he could take the patient on his service upon his return Wednesday. food stylist neurosurgery was also contacted through ER. VS,Maicol, I+O VS, Fishbone, I+O Laboratory Tests 01/01/17 12:33 Red Blood Count 5.17, Mean Corpuscular Volume 83.4, Mean Corpuscular Hemoglobin 26.7 L, Mean Corpuscular Hemoglobin Concent 32.0, Red Cell Distribution Width 18.1 H, Neutrophils (%) (Auto) 85.9 H, Lymphocytes (%) (Auto) 6.4 L, Monocytes ( %) (Auto) 4.7, Eosinophils (%) (Auto) 1.2, Basophils (%) (Auto) 0.3, Neutrophils # (Auto) 14.8 H, Lymphocytes # (Auto) 1.1 L, Monocytes # (Auto) 0.8 , Eosinophils # (Auto) 0.2, Basophils # (Auto) 0.0, Calcium Level 8.5 Vital Signs Date Time Temp Pulse Resp B/P (MAP) Pulse Ox O2 Delivery O2 Flow Rate FiO2 01/01/17 19:31 18 01/01/17 19:21 100.1 64 149/65 (93) 98 Room Air CHELY ROSARIO MD Jan 01, 2017 20:32
[2017-01-01] MEDS: ATORVASTATIN 20 MG TAB PO SCH (20:36)
[2017-01-01] MEDS: GABAPENTIN 300 MG CAP PO SCH (20:36)
[2017-01-01] MEDS: FERROUS SULFATE 325MG TAB PO SCH (20:36)
[2017-01-01] MEDS ORDERED: VANCOMYCIN HCL 1,000 MG, VIAL MATE ADAPTER 1 EACH in D5W 250 ML IV SCH (21:00)
[2017-01-01] MEDS ORDERED: VANCOMYCIN HCL 500 MG in D5W MINI-BAG PLUS 100 ML IV ONE (22:00)
[2017-01-02] MEDS: ANEXSIA, NORCO 7.5MG/325MG TABLET(HYDROCODONE/APAP) PO PRN (00:07)
[2017-01-02] MEDS ORDERED: NORCO, ANEXSIA 5/325MG TABLET (HYDROcodone/ACETAMINOPHEN) PO PRN (04:00)
[2017-01-02] MEDS ORDERED: ACETAMINOPHEN TAB 650MG DOSE (2X325MG) PO PRN (04:00)
[2017-01-02] MEDS: NORCO, ANEXSIA 5/325MG TABLET (HYDROcodone/ACETAMINOPHEN) PO PRN ×4 (04:17→19:59)
[2017-01-02 06:00] VITALS: BP 142/70
[2017-01-02 06:16] LABS: BASO % 0.1 % (0.0-1.0); EOS # 0.3 K/mm3 (0.0-0.50); EOS % 2.7 % (0.0-3.0); LARGE UNSTAINED CELL # 0.2 K/mm3 (0.0-0.4); LARGE UNSTAINED CELL % 1.5 % (0.0-4.0); LYMPH # 0.7 K/mm3 (1.5-4.5); MEAN CORPUSCULAR HEMOGLOBIN 26.7 pg (27.0-33.0); MEAN CORPUSCULAR HGB CONC 32.3 g/dl (32.0-36.5); MEAN CORPUSCULAR VOLUME 82.7 fl (80.0-96.0); MONO # 0.6 K/mm3 (0.0-0.8); MONO % 4.7 % (0.0-5.0); NEUTROPHILS # 10.8 K/mm3 (1.8-7.7); NEUTROPHILS % 87.1 % (36.0-66.0); PLATELET COUNT, AUTOMATED 155 k/mm3 (150-450); RED CELL DISTRIBUTION WIDTH 18.4 % (11.5-14.5); WHITE BLOOD COUNT 12.4 K/mm3 (4.0-10.0)
[2017-01-02 06:41] LABS: ERYTHROCYTE SEDIMENTATION RATE 14 mm/hr (0-15)
[2017-01-02 06:50] LABS: ANION GAP 7 MEQ/L (8-16); BLOOD UREA NITROGEN 9 MG/DL (7-18); CALCIUM LEVEL 8.2 MG/DL (8.5-10.1); CARBON DIOXIDE LEVEL 23 MEQ/L (21-32); CHLORIDE LEVEL 106 MEQ/L (98-107); GLOMERULAR FILTRATION RATE > 60.0 (>60); GLUCOSE, FASTING 97 MG/DL (70-105); POTASSIUM SERUM 3.8 MEQ/L (3.5-5.1); SODIUM LEVEL 136 MEQ/L (136-145)
[2017-01-02] MEDS ORDERED: VANCOMYCIN HCL 1,000 MG, VIAL MATE ADAPTER 1 EACH in D5W 250 ML IV SCH (09:00)
[2017-01-02] MEDS: NS 1,000 ML IV SCH (09:15)
[2017-01-02] MEDS: OMEPRAZOLE 20 MG CAP PO SCH (10:05)
[2017-01-02] MEDS: GABAPENTIN 300 MG CAP PO SCH ×3 (10:05→19:57)
[2017-01-02] MEDS: FERROUS SULFATE 325MG TAB PO SCH ×2 (10:05→19:58)
[2017-01-02] MEDS: CYANOCOBALAMIN 500 MCG TAB PO SCH (10:05)
[2017-01-02] MEDS: LISINOPRIL 20 MG TAB PO SCH (10:05)
[2017-01-02 14:00] VITALS: BP 148/66
[2017-01-02] MEDS: VANCOMYCIN HCL 1,000 MG, VIAL MATE ADAPTER 1 EACH in D5W 250 ML IV SCH ×2 (14:17→22:11)
[2017-01-02] MEDS: ATORVASTATIN 20 MG TAB PO SCH (19:57)
[2017-01-02 22:00] VITALS: BP 134/74
--- NOTE | 2017-01-02 23:42 | IPNPDOC ---
Subjective Date Seen The patient was seen on 01/02/17. Subjective Chief Complaint/HPI The patient is a 51-year-old male admitted with a reason for visit of Postoperative Wound Infection. Events since last encounter He reports that in the last day his infection seems to be spreading onto his chest and across to his neck. It's warm. He describes it as a sunburn on the inside. He would very much like to see this reverse course and go away. General: Reports: Normal Appetite Pulmonary: Denies: Cough Cardiovascular: Denies: Chest Pain Psych: Reports: Mood Normal Objective Physical Examination General Exam: Positive: Alert, Cooperative, No Acute Distress Eye Exam: Positive: PERRLA, Conjunctiva & lids normal, EOMI, Negative: Sclera icteric ENT Exam: Positive: Atraumatic, Mucous membr. moist/pink, Pharynx Normal, Tongue Midline Neck Exam: Positive: Supple, Negative: JVD Chest Exam: Positive: Clear to auscultation, Normal air movement Heart Exam: Positive: Rate Normal, Normal S1, Normal S2, Negative: Gallops, Murmurs, Rubs Abdomen Exam: Positive: Normal bowel sounds, Soft, Negative: Tenderness Extremity Exam: Negative: Clubbing, Cyanosis Skin Exam: Positive: Nl turgor and temperature, Rash (Patient has surgical wound site left cervical spine. The area of edema and erythema and warmth seems to have spread from his right posterior neck all the way around to the sternal head of his left clavicle.), Negative: Breakdown Neuro Exam: Positive: Normal Speech Psych Exam: Positive: Mental status NL, Mood NL, Oriented x 3 Assessment /Plan Problems (1) Cellulitis Status: Acute Response to Treatment: Worse, Progressing Discussed With: Nurse, Patient Problem Text: In my mind this is an obvious postoperative complication, albeit delayed. His white count is down, but his CRP is up. I marked and dated the limits of his erythema. Continue the vancomycin at doses recommended by pharmacy for now. We'll have to see what happens in the next day or so. If it doesn't start improving, we'll need to change his antibiotics. (2) History of injury Status: Chronic Response to Treatment: Stable Problem Text: Patient had a injury last May of the 500 pound door hitting him. Ever since then patient has had weakness on his right side. This is chronic. No changes in sensation. Continue patient on home medications for pain. This includes hydrocodone acetaminophen 325 7.5, gabapentin 300 mg 3 times a day,prochlorpeaszine maleate. (3) Migraine Status: Chronic Response to Treatment: Stable Problem Text: Patient has a history of migraines and takes Topamax twice daily as needed. We'll continue this while in the hospital. (4) GERD (gastroesophageal reflux disease) Status: Chronic Response to Treatment: Stable Problem Text: Continue patient's home medication. Monitor clinically. (5) History of MD (myocardial infarction) Problem Text: Patient had stents placed in 1990. Patient follows up with Dr. Luna for this. Patient takes atorvastatin at home daily. We'll continue this while in the hospital. (6) History of gastric bypass Problem Text: Patient has a history of gastric bypass. We'll be giving patient a vitamin B supplement daily. Plan/VTE VTE Prophylaxis Ordered?: Yes (compression stockings) VTE Exclusion Pharmacological: Other (possible need for repeat surgery in or around the cervical spine) VS, I&O, 24H, [facility] Vital Signs/I&O Vital Signs Date Time Temp Pulse Resp B/P (MAP) Pulse Ox O2 Delivery O2 Flow Rate FiO2 01/02/17 22:00 99.8 62 18 134/74 (94) 98 Room Air I&O- Last 24 Hours up to 6 AM 01/02/17 06:00 Intake Total 2416 ml Output Total 1400 ml Balance 1016 ml Laboratory Data 24H LABS Laboratory Tests 2 01/02/17 05:48: White Blood Count 12.4H, Red Blood Count 4.75, Hemoglobin 12.7L, Hematocrit 39.3L, Mean Corpuscular Volume 82.7, Mean Corpuscular Hemoglobin 26.7L, Mean Corpuscular Hemoglobin Concent 32.3, Red Cell Distribution Width 18.4H, Platelet Count 155, Neutrophils (%) (Auto) 87.1H, Lymphocytes (%) (Auto) 4.0L, Monocytes (%) (Auto) 4.7, Eosinophils (%) (Auto) 2.7, Basophils (%) (Auto) 0.1, Neutrophils # (Auto) 10.8H, Lymphocytes # (Auto) 0.7L, Monocytes # (Auto) 0.6, Eosinophils # (Auto) 0.3, Basophils # (Auto) 0.0, Large Unclassified Cells % 1.5 , Large Unclassified Cells # 0.2, Erythrocyte Sedimentation Rate 14, Anion Gap 7L, Glomerular Filtration Rate > 60.0, Blood Urea Nitrogen 9, Creatinine 1.00, Sodium Level 136, Potassium Level 3.8, Chloride Level 106, Carbon Dioxide Level 23, Calcium Level 8.2L, C-Reactive Protein, Quantitative 18.10H CBC/BMP Laboratory Tests 01/02/17 05:48 Red Blood Count 4.75, Mean Corpuscular Volume 82.7, Mean Corpuscular Hemoglobin 26.7 L, Mean Corpuscular Hemoglobin Concent 32.3, Red Cell Distribution Width 18.4 H, Neutrophils (%) (Auto) 87.1 H, Lymphocytes (%) (Auto) 4.0 L, Monocytes ( %) (Auto) 4.7, Eosinophils (%) (Auto) 2.7, Basophils (%) (Auto) 0.1, Neutrophils # (Auto) 10.8 H, Lymphocytes # (Auto) 0.7 L, Monocytes # (Auto) 0.6 , Eosinophils # (Auto) 0.3, Basophils # (Auto) 0.0, Calcium Level 8.2 L Microbiology Microbiology 01/01/17 Blood Culture - Preliminary, Resulted No growth after 24 hours . All specim... 01/01/17 Blood Culture - Preliminary, Resulted No growth after 24 hours . All specim... Omar cAosta MD Jan 02, 2017 23:42
[2017-01-03] MEDS: VANCOMYCIN HCL 1,000 MG, VIAL MATE ADAPTER 1 EACH in D5W 250 ML IV SCH ×3 (05:20→23:15)
[2017-01-03] MEDS: NORCO, ANEXSIA 5/325MG TABLET (HYDROcodone/ACETAMINOPHEN) PO PRN ×4 (05:21→20:20)
[2017-01-03 05:45] LABS: BASO % 0.3 % (0.0-1.0); EOS # 0.4 K/mm3 (0.0-0.50); EOS % 4.4 % (0.0-3.0); LARGE UNSTAINED CELL # 0.3 K/mm3 (0.0-0.4); LARGE UNSTAINED CELL % 3.4 % (0.0-4.0); LYMPH # 1.2 K/mm3 (1.5-4.5); LYMPH % 10.3 % (24.0-44.0); MEAN CORPUSCULAR HGB CONC 32.5 g/dl (32.0-36.5); MONO # 0.7 K/mm3 (0.0-0.8); MONO % 7.7 % (0.0-5.0); NEUTROPHILS # 6.6 K/mm3 (1.8-7.7); NEUTROPHILS % 73.9 % (36.0-66.0); PLATELET COUNT, AUTOMATED 173 k/mm3 (150-450); RED CELL DISTRIBUTION WIDTH 18.3 % (11.5-14.5); WHITE BLOOD COUNT 8.9 K/mm3 (4.0-10.0)
[2017-01-03 05:54] LABS: ANION GAP 8 MEQ/L (8-16); BLOOD UREA NITROGEN 5 MG/DL (7-18); CALCIUM LEVEL 7.7 MG/DL (8.5-10.1); CARBON DIOXIDE LEVEL 23 MEQ/L (21-32); CHLORIDE LEVEL 112 MEQ/L (98-107); CREATININE FOR GFR 0.76 MG/DL (0.70-1.30); GLOMERULAR FILTRATION RATE > 60.0 (>60); GLUCOSE, FASTING 94 MG/DL (70-105); POTASSIUM SERUM 3.9 MEQ/L (3.5-5.1)
[2017-01-03 06:00] VITALS: BP 135/65
[2017-01-03 06:12] LABS: SODIUM LEVEL 143 MEQ/L (136-145)
--- NOTE | 2017-01-03 06:29 | PHACANCOPD ---
PHARMACY VANCOMYCIN DOSING Pt Demographics Demographics Patient Age:51 , Weight:88.800 , Gender: male Adjusted Body Weight Date: 01/01/17, Adjusted Body Weight: Kg Vancomycin Vancomycin indication: Soft tissue infxn Vancomycin Target Ranges: 10-20 mcg/ml Vancomycin Load Y/N: Yes Load Dose Date Time Vancomycin Load Dose: 1500mg Date: 01/01/17 Time: 2100 Vancomycin Dose Date: 01/01/17. Current Vancomycin Dose: [1G q8h@2200] Intermittent Dosing?: No Labs Micro Microbiology 01/01/17 Blood Culture - Preliminary, Resulted No growth after 24 hours . All specim... 01/01/17 Blood Culture - Preliminary, Resulted No growth after 24 hours . All specim... Creatinine Clearance Date:01/01/17. Creatinine Clearance: [1.06]. Assessment and Plan Maintaining Current Dose?: Yes Reason for dose change: No Dose Change Pharmacist Note Pharmacist Note 01/03/17: Scr remains stable, and output has been good. WBC is now WNL. I have scheduled a trough level to be drawn today, 01/03/17, at 1300. We will continue to monitor and make dose adjustments if needed. Date: 01/01/17. Pharmacist note: Patient presented to the ED yesterday with neck swelling and redness. He is approximately 1 month post surgical procedure on nerves in neck. Patient was given 1G Vanco one time dose and Rx for Clindamycin PO 150mg qid. Patient returned today with worsening symptoms (significant increase in redness and swelling). Past wound cultures show resistance to clindamycin; (-) mrsa, but he does have a past history of mrsa in 2008. Patient was last treated successfully with Vanco 1G q8h in June 2016. We started him on Vanco 1500mg LD, followed by 1G IV q8h@2200. We will continue to monitor patient and adjust dose as necessary. MELCHOR SPENCER PHARMACY Jan 03, 2017 06:29
[2017-01-03] MEDS: GABAPENTIN 300 MG CAP PO SCH ×3 (08:38→20:20)
[2017-01-03] MEDS: OMEPRAZOLE 20 MG CAP PO SCH (08:38)
[2017-01-03] MEDS: CYANOCOBALAMIN 500 MCG TAB PO SCH (08:38)
[2017-01-03] MEDS: FERROUS SULFATE 325MG TAB PO SCH ×2 (08:38→20:20)
[2017-01-03] MEDS: NS 1,000 ML IV SCH ×2 (08:39→13:24)
[2017-01-03] MEDS: LISINOPRIL 20 MG TAB PO SCH (08:39)
[2017-01-03 14:00] VITALS: BP 147/73
--- NOTE | 2017-01-03 15:10 | PHACANCOPD ---
PHARMACY VANCOMYCIN DOSING Pt Demographics Demographics Patient Age:51 , Weight:88.800 , Gender: male Adjusted Body Weight Date: 01/01/17, Adjusted Body Weight: Kg Vancomycin Vancomycin indication: Soft tissue infxn Vancomycin Target Ranges: 10-20 mcg/ml Vancomycin Load Y/N: Yes Load Dose Date Time Vancomycin Load Dose: 1500mg Date: 01/01/17 Time: 2100 Vancomycin Dose Date: 01/01/17. Current Vancomycin Dose: [1G q8h@2200] Intermittent Dosing?: No Labs Labs Item Value Date Time Creatinine 1.06 MG/DL 01/01/17 1233 Creatinine 1.00 MG/DL 01/02/17 0548 Creatinine 0.76 MG/DL 01/03/17 0510 White Blood Count 17.2 K/mm3 H 01/01/17 1233 White Blood Count 12.4 K/mm3 H 01/02/17 0548 White Blood Count 8.9 K/mm3 01/03/17 0510 Vancomycin Level Trough 12.6 UG/ML 01/03/17 1305 Micro Microbiology 01/01/17 Blood Culture - Preliminary, Resulted No Growth after 48 hours. All Specime... 01/01/17 Blood Culture - Preliminary, Resulted No Growth after 48 hours. All Specime... Creatinine Clearance Date:01/01/17. Creatinine Clearance: [1.06]. Assessment and Plan Maintaining Current Dose?: Yes Reason for dose change: No Dose Change Pharmacist Note Pharmacist Note Date: 01/03/17. Pharmacist note: Therapeutic trough (12.6) returned after 4 doses. Continue current dosing and monitor renal function. 01/03/17: Scr remains stable, and output has been good. WBC is now WNL. I have scheduled a trough level to be drawn today, 01/03/17, at 1300. We will continue to monitor and make dose adjustments if needed. Date: 01/01/17. Pharmacist note: Patient presented to the ED yesterday with neck swelling and redness. He is approximately 1 month post surgical procedure on nerves in neck. Patient was given 1G Vanco one time dose and Rx for Clindamycin PO 150mg qid. Patient returned today with worsening symptoms (significant increase in redness and swelling). Past wound cultures show resistance to clindamycin; (-) mrsa, but he does have a past history of mrsa in 2008. Patient was last treated successfully with Vanco 1G q8h in June 2016. We started him on Vanco 1500mg LD, followed by 1G IV q8h@2200. We will continue to monitor patient and adjust dose as necessary. TEDDY DENNIS PHARMACY Jan 03, 2017 15:09
[2017-01-03] MEDS: ATORVASTATIN 20 MG TAB PO SCH (20:19)
[2017-01-03 22:00] VITALS: BP 132/80
--- NOTE | 2017-01-04 01:20 | IPNPDOC ---
Subjective Date Seen The patient was seen on 01/03/17. Subjective Chief Complaint/HPI The patient is a 51-year-old male admitted with a reason for visit of Postoperative Wound Infection. Events since last encounter He reports that the area right around the surgical scar seems to be getting thicker and puffier. He hopes someone can do something about this area soon. General: Reports: Normal Appetite, Denies: Chills Constitutional: Reports: Fatigue, Denies: Fever Pulmonary: Denies: Cough Cardiovascular: Denies: Chest Pain, Palpitations Genitourinary: Denies: Dysuria Psych: Reports: Mood Normal Objective Physical Examination General Exam: Positive: Alert, Cooperative, No Acute Distress Eye Exam: Positive: PERRLA, Conjunctiva & lids normal, EOMI, Negative: Sclera icteric ENT Exam: Positive: Atraumatic, Mucous membr. moist/pink, Pharynx Normal, Tongue Midline Neck Exam: Positive: Supple, Negative: JVD Chest Exam: Positive: Clear to auscultation, Normal air movement Heart Exam: Positive: Rate Normal, Normal S1, Normal S2, Negative: Gallops, Murmurs, Rubs Abdomen Exam: Positive: Normal bowel sounds, Soft, Negative: Tenderness Extremity Exam: Negative: Clubbing, Cyanosis Skin Exam: Positive: Nl turgor and temperature, Rash (Patient has surgical wound site left cervical spine. The area of edema and erythema and warmth seems to have receded a little from the margins I marked yesterday. However the area right around the surgical scar seems like it may be getting ready to drain. I suspect this will need to be I &D'd soon.), Negative: Breakdown Neuro Exam: Positive: Normal Speech Psych Exam: Positive: Mental status NL, Mood NL, Oriented x 3 Assessment /Plan Problems (1) Cellulitis Status: Acute Response to Treatment: Worse, Progressing Discussed With: Nurse, Patient Problem Text: In my mind this is an obvious postoperative complication, albeit delayed. His white count is down, but his CRP is up. I marked and dated the limits of his erythema. Continue the vancomycin at doses recommended by pharmacy for now. We'll have to see what happens in the next day or so. If it doesn't start improving, we'll need to change his antibiotics. (2) History of injury Status: Chronic Response to Treatment: Stable Problem Text: Patient had a injury last May of the 500 pound door hitting him. Ever since then patient has had weakness on his right side. This is chronic. No changes in sensation. Continue patient on home medications for pain. This includes hydrocodone acetaminophen 325 7.5, gabapentin 300 mg 3 times a day,prochlorpeaszine maleate. (3) Migraine Status: Chronic Response to Treatment: Stable Problem Text: Patient has a history of migraines and takes Topamax twice daily as needed. We'll continue this while in the hospital. (4) GERD (gastroesophageal reflux disease) Status: Chronic Response to Treatment: Stable Problem Text: Continue patient's home medication. Monitor clinically. (5) History of MA (myocardial infarction) Problem Text: Patient had stents placed in 1990. Patient follows up with Dr. Luna for this. Patient takes atorvastatin at home daily. We'll continue this while in the hospital. (6) History of gastric bypass Problem Text: Patient has a history of gastric bypass. We'll be giving patient a vitamin B supplement daily. Plan/VTE VTE Prophylaxis Ordered?: Yes (compression stockings) VTE Exclusion Pharmacological: Other (possible need for repeat surgery in or around the cervical spine) VS, I&O, 24H, Fishbone Vital Signs/I&O Vital Signs Date Time Temp Pulse Resp B/P (MAP) Pulse Ox O2 Delivery O2 Flow Rate FiO2 01/03/17 22:00 98.7 59 16 132/80 (97) 98 Room Air I&O- Last 24 Hours up to 6 AM 01/04/17 06:00 Intake Total 3220 ml Output Total 1500 ml Balance 1720 ml Laboratory Data 24H LABS Laboratory Tests 2 01/03/17 05:10: White Blood Count 8.9, Red Blood Count 4.79, Hemoglobin 12.9L, Hematocrit 39.7L , Mean Corpuscular Volume 83.0, Mean Corpuscular Hemoglobin 27.0, Mean Corpuscular Hemoglobin Concent 32.5, Red Cell Distribution Width 18.3H, Platelet Count 173, Neutrophils (%) (Auto) 73.9H, Lymphocytes (%) (Auto) 10.3L, Monocytes (%) (Auto) 7.7H, Eosinophils (%) (Auto) 4.4H, Basophils (%) (Auto) 0.3 , Neutrophils # (Auto) 6.6, Lymphocytes # (Auto) 1.2L, Monocytes # (Auto) 0.7, Eosinophils # (Auto) 0.4, Basophils # (Auto) 0.0, Large Unclassified Cells % 3.4 , Large Unclassified Cells # 0.3, Anion Gap 8, Glomerular Filtration Rate > 60.0 , Blood Urea Nitrogen 5L, Creatinine 0.76, Sodium Level 143#, Potassium Level 3.9, Chloride Level 112H, Carbon Dioxide Level 23, Calcium Level 7.7L 01/03/17 13:05: Vancomycin Level Trough 12.6 CBC/BMP Laboratory Tests 01/03/17 05:10 Red Blood Count 4.79, Mean Corpuscular Volume 83.0, Mean Corpuscular Hemoglobin 27.0, Mean Corpuscular Hemoglobin Concent 32.5, Red Cell Distribution Width 18.3 H, Neutrophils (%) (Auto) 73.9 H, Lymphocytes (%) (Auto) 10.3 L, Monocytes (%) (Auto) 7.7 H, Eosinophils (%) (Auto) 4.4 H, Basophils (%) (Auto) 0.3, Neutrophils # (Auto) 6.6, Lymphocytes # (Auto) 1.2 L, Monocytes # (Auto) 0.7, Eosinophils # (Auto) 0.4, Basophils # (Auto) 0.0, Calcium Level 7.7 L Microbiology Microbiology 01/01/17 Blood Culture - Preliminary, Resulted No Growth after 48 hours. All Specime... 01/01/17 Blood Culture - Preliminary, Resulted No Growth after 48 hours. All Specime... Omar Acosta MD Jan 04, 2017 1:19 am
[2017-01-04] MEDS: VANCOMYCIN HCL 1,000 MG, VIAL MATE ADAPTER 1 EACH in D5W 250 ML IV SCH ×3 (05:50→22:26)
[2017-01-04] MEDS: NS 1,000 ML IV SCH ×2 (05:50→22:26)
[2017-01-04 06:00] VITALS: BP 122/75
[2017-01-04] MEDS: NORCO, ANEXSIA 5/325MG TABLET (HYDROcodone/ACETAMINOPHEN) PO PRN ×4 (06:20→22:30)
[2017-01-04 06:26] LABS: BASO % 0.5 % (0.0-1.0); EOS # 0.4 K/mm3 (0.0-0.50); EOS % 7.2 % (0.0-3.0); LARGE UNSTAINED CELL # 0.3 K/mm3 (0.0-0.4); LARGE UNSTAINED CELL % 3.9 % (0.0-4.0); LYMPH # 1.3 K/mm3 (1.5-4.5); LYMPH % 15.9 % (24.0-44.0); MEAN CORPUSCULAR HEMOGLOBIN 26.5 pg (27.0-33.0); MEAN CORPUSCULAR HGB CONC 31.8 g/dl (32.0-36.5); MEAN CORPUSCULAR VOLUME 83.5 fl (80.0-96.0); MONO # 0.5 K/mm3 (0.0-0.8); NEUTROPHILS % 64.5 % (36.0-66.0); PLATELET COUNT, AUTOMATED 221 k/mm3 (150-450); RED CELL DISTRIBUTION WIDTH 18.3 % (11.5-14.5); WHITE BLOOD COUNT 6.3 K/mm3 (4.0-10.0)
[2017-01-04 06:51] LABS: ANION GAP 4 MEQ/L (8-16); BLOOD UREA NITROGEN 5 MG/DL (7-18); CARBON DIOXIDE LEVEL 28 MEQ/L (21-32); CHLORIDE LEVEL 113 MEQ/L (98-107); CREATININE FOR GFR 0.88 MG/DL (0.70-1.30); GLOMERULAR FILTRATION RATE > 60.0 (>60); GLUCOSE, FASTING 106 MG/DL (70-105); POTASSIUM SERUM 4.2 MEQ/L (3.5-5.1); SODIUM LEVEL 145 MEQ/L (136-145)
[2017-01-04] MEDS: LISINOPRIL 20 MG TAB PO SCH (08:28)
[2017-01-04] MEDS: FERROUS SULFATE 325MG TAB PO SCH ×2 (08:28→22:26)
[2017-01-04] MEDS: CYANOCOBALAMIN 500 MCG TAB PO SCH (08:28)
[2017-01-04] MEDS: OMEPRAZOLE 20 MG CAP PO SCH (08:29)
[2017-01-04] MEDS: GABAPENTIN 300 MG CAP PO SCH ×3 (08:29→22:26)
--- NOTE | 2017-01-04 09:27 | IPNPDOC ---
Subjective Date Seen The patient was seen on 01/04/17. Subjective Chief Complaint/HPI The patient is a 51-year-old male admitted with a reason for visit of Postoperative Wound Infection. Events since last encounter Pt notes continued pressure at wound site, but states it is not as hot feeling as before. Denies any other new issues. Constitutional: Denies: Chills, Fever Pulmonary: Denies: Dyspnea Cardiovascular: Denies: Chest Pain Gastrointestinal: Denies: Nausea, Vomiting, Abdominal Pain Objective Physical Examination General Exam: Positive: Alert, Cooperative, No Acute Distress Eye Exam: Positive: PERRLA, Conjunctiva & lids normal, EOMI, Negative: Sclera icteric ENT Exam: Positive: Atraumatic, Mucous membr. moist/pink, Pharynx Normal, Tongue Midline Neck Exam: Positive: Supple, Negative: JVD Chest Exam: Positive: Clear to auscultation, Normal air movement Heart Exam: Positive: Rate Normal, Normal S1, Normal S2, Negative: Gallops, Murmurs, Rubs Abdomen Exam: Positive: Normal bowel sounds, Soft, Negative: Tenderness Extremity Exam: Negative: Clubbing, Cyanosis Skin Exam: Positive: Nl turgor and temperature, Rash (Patient has surgical wound site left cervical spine. The area of edema and erythema and warmth seems to have receded a little from the margins that were marked yesterday by Dr Acosta. However the area right around the surgical scar seems like it may be getting ready to drain. I suspect this will need to be I &D'd soon.), Negative: Breakdown Neuro Exam: Positive: Normal Speech Psych Exam: Positive: Mental status NL, Mood NL, Oriented x 3 Assessment /Plan Problems (1) Cellulitis Status: Acute Response to Treatment: Worse, Progressing Discussed With: Nurse, Patient Problem Text: 01/04 - WBC 6.3. CRP 18.10 on 01/02. On IV Vanco. ?Consider ID consult? - D/W attending. 01/03 - In my mind this is an obvious postoperative complication, albeit delayed. His white count is down, but his CRP is up. I marked and dated the limits of his erythema. Continue the vancomycin at doses recommended by pharmacy for now. We'll have to see what happens in the next day or so. If it doesn't start improving, we'll need to change his antibiotics. (2) History of injury Status: Chronic Response to Treatment: Stable Problem Text: Patient had a injury last May of the 500 pound door hitting him. Ever since then patient has had weakness on his right side. This is chronic. No changes in sensation. Continue patient on home medications for pain. This includes hydrocodone acetaminophen 325 7.5, gabapentin 300 mg 3 times a day,prochlorpeaszine maleate. (3) Migraine Status: Chronic Response to Treatment: Stable Problem Text: Patient has a history of migraines and takes Topamax twice daily as needed. We'll continue this while in the hospital. (4) GERD (gastroesophageal reflux disease) Status: Chronic Response to Treatment: Stable Problem Text: Continue patient's home medication. Monitor clinically. (5) History of PR (myocardial infarction) Problem Text: Patient had stents placed in 1990. Patient follows up with Dr. Luna for this. Patient takes atorvastatin at home daily. We'll continue this while in the hospital. (6) History of gastric bypass Problem Text: Patient has a history of gastric bypass. We'll be giving patient a vitamin B supplement daily. Plan/VTE VTE Prophylaxis Ordered?: Yes (compression stockings) VTE Exclusion Pharmacological: Other (possible need for repeat surgery in or around the cervical spine) [facility]O Vital Signs Date Time Temp Pulse Resp B/P (MAP) Pulse Ox O2 Delivery O2 Flow Rate FiO2 01/04/17 08:28 160/91 01/04/17 06:50 18 Room Air 01/04/17 06:00 98.7 57 99 I&O- Last 24 Hours up to 6 AM 01/04/17 06:00 Intake Total 3220 ml Output Total 2800 ml Balance 420 ml Laboratory Data 24H LABS Laboratory Tests 2 01/03/17 13:05: Vancomycin Level Trough 12.6 01/04/17 06:09: White Blood Count 6.3, Red Blood Count 4.71, Hemoglobin 12.5L, Hematocrit 39.3L , Mean Corpuscular Volume 83.5, Mean Corpuscular Hemoglobin 26.5L, Mean Corpuscular Hemoglobin Concent 31.8L, Red Cell Distribution Width 18.3H, Platelet Count 221, Neutrophils (%) (Auto) 64.5, Lymphocytes (%) (Auto) 15.9L, Monocytes (%) (Auto) 8.0H, Eosinophils (%) (Auto) 7.2H, Basophils (%) (Auto) 0.5 , Neutrophils # (Auto) 4.0, Lymphocytes # (Auto) 1.3L, Monocytes # (Auto) 0.5, Eosinophils # (Auto) 0.4, Basophils # (Auto) 0.0, Large Unclassified Cells % 3.9 , Large Unclassified Cells # 0.3, Anion Gap 4L, Glomerular Filtration Rate > 60.0, Blood Urea Nitrogen 5L, Creatinine 0.88, Sodium Level 145, Potassium Level 4.2, Chloride Level 113H, Carbon Dioxide Level 28, Calcium Level 8.0L CBC/BMP Laboratory Tests 01/04/17 06:09 Red Blood Count 4.71, Mean Corpuscular Volume 83.5, Mean Corpuscular Hemoglobin 26.5 L, Mean Corpuscular Hemoglobin Concent 31.8 L, Red Cell Distribution Width 18.3 H, Neutrophils (%) (Auto) 64.5, Lymphocytes (%) (Auto) 15.9 L, Monocytes (% ) (Auto) 8.0 H, Eosinophils (%) (Auto) 7.2 H, Basophils (%) (Auto) 0.5, Neutrophils # (Auto) 4.0, Lymphocytes # (Auto) 1.3 L, Monocytes # (Auto) 0.5, Eosinophils # (Auto) 0.4, Basophils # (Auto) 0.0, Calcium Level 8.0 L Microbiology Microbiology 01/01/17 Blood Culture - Preliminary, Resulted No Growth after 48 hours. All Specime... 01/01/17 Blood Culture - Preliminary, Resulted No Growth after 48 hours. All Specime... Kentrell Milian Jan 04, 2017 09:27
[2017-01-04 14:30] VITALS: BP 148/79
--- NOTE | 2017-01-04 18:29 | CR ---
DATE OF NEUROSURGERY CONSULTATION: 01/04/2017 HISTORY OF PRESENT ILLNESS: I was asked for a consult by Dr. Turner today, 01/04/2017 around 9:20 a.m. The consult is regarding a postoperative wound infection. Mr. Noland had a left occipital nerve decompression on 12/01/[address] Quintero. He had presented to the ED with symptoms of infection and he was admitted on 01/01/2017. He has been receiving vancomycin IV every 8 hours for his postoperative wound infection. He states that his main symptoms is the pressure pain at the incision site, but this is improving. He states he still has headaches but the headaches are not as bad as they previously were. He has had fever and chills since his admission on 01/01. However, he denies these symptoms today. He denies any night sweats, weakness, numbness/tingling, increased fatigue, nausea, vomiting, any vision changes, or any speech changes. He has been taking gabapentin 300 mg three times a day, [place] 5/325 every 4 hours for pain, and he also has prescribed to him Tylenol 625 mg as needed for pain or fever. He states that his pain has been improving with these medications. He denies any new symptoms today. ALLERGIES: NONSTEROIDAL ANTI-INFLAMMATORY DRUG (NSAID) and TRAMADOL. HOME MEDICATIONS: - vitamin C - Lipitor - clindamycin - vitamin B12 - ferrous sulfate - gabapentin - lisinopril - omeprazole - tizanidine PAST MEDICAL HISTORY: 1. 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 2. Coronary artery disease with a history of myocardial infarction ([place]). 3. Gastroesophageal reflux disease (GERD). 4. Postoperative infection of cervical stroma. 5. Hypertension. 6. History of gastric bypass. 7. Hypercholesterolemia. 8. History of iron deficiency anemia. SOCIAL HISTORY: Smoking status: He is a former smoker. Nonsmoking currently. Illicit drugs: Denies. Alcohol: Denies. REVIEW OF SYSTEMS: As per HPI. PHYSICAL EXAMINATION: GENERAL: He is lying comfortably supine on the bed. He is alert and oriented. He is in no acute distress. HEAD: Normocephalic. The area of incision on the left side of the occipital region has mild to moderate amount of swelling around the incision. It is warm and erythematous. It is tender to touch and feels indurated. There is no active drainage. It appears the erythema is receding away from the lines previously drawn with skin scribe. NECK: Is otherwise supple. He does have limited range of motion with flexion and extension and lateral bending. NEURO: Motor muscle strength-right sided weakness in the upper extremities, noted to be chronic. Strength in the left side upper extremity is 5/5, lower extremity is 5/5 throughout. Sensation is intact. Cranial nerves II-XII appear to be intact. MENTAL STATUS: Within normal limits. LABORATORY DATA: His white blood cell count was initially elevated upon arrival on 01/01/2017 at 17.2. Came down to 12.4 on 01/02, yesterday 01/03, noted to be 8.9 and then today his white blood cell count has continued to go down at 6.3. It is noted today he has been afebrile. PLAN AND RECOMMENDATION: The patient has been seen in neurosurgical consultation at the request of Dr. Turner today 01/04/2017 for postoperative wound infection. Dr. Quintero has seen this patient in neurosurgical consult on 01/01/2017. No neurosurgical intervention was recommended at that time. It seems he is responding well to the IV antibiotics. He is noted to be afebrile today. His chills have also been improving. It seems he is overall improving. In agreement with Dr Quintero no neurosurgical intervention is needed at this time. Recommend to continue plan per infectious disease regarding antibiotic therapy. Thank you for this consultation. Any further questions, please let us know. This case and note was discussed with Dr. Turner who is in agreement with this plan. HELEN HodgeD
[2017-01-04 22:00] VITALS: BP 139/90
[2017-01-04] MEDS: ATORVASTATIN 20 MG TAB PO SCH (22:27)
--- NOTE | 2017-01-05 05:30 | REP ---
Clinical: Erythema and swelling. Evaluate for abscess. Technique: Real time bella scale and color evaluation using linear high frequency transducer. Findings: Directed ultrasound examination along the posterior aspect of the neck at the site of maximal erythema and swelling demonstrates a complex phlegmonous subcutaneous collection measuring approximately 2.5 x 1.7 x 2.3 cm with possible sinus tract to the skin surface. Surrounding edema noted. Impression: Complex phlegmonous collection with possible sinus tract. Differential diagnosis includes abscess and hematoma and correlation with history and physical examination is required. Signed by Gaurav Burks MD 01/05/2017 05:20 A
[2017-01-05 06:00] VITALS: BP 138/72
[2017-01-05] MEDS: VANCOMYCIN HCL 1,000 MG, VIAL MATE ADAPTER 1 EACH in D5W 250 ML IV SCH ×3 (06:12→21:30)
[2017-01-05 06:54] LABS: BASO % 0.7 % (0.0-1.0); EOS # 0.4 K/mm3 (0.0-0.50); EOS % 7.6 % (0.0-3.0); LARGE UNSTAINED CELL # 0.2 K/mm3 (0.0-0.4); LARGE UNSTAINED CELL % 4.1 % (0.0-4.0); LYMPH # 1.5 K/mm3 (1.5-4.5); MEAN CORPUSCULAR HEMOGLOBIN 26.4 pg (27.0-33.0); MEAN CORPUSCULAR HGB CONC 31.5 g/dl (32.0-36.5); MEAN CORPUSCULAR VOLUME 83.6 fl (80.0-96.0); MONO # 0.5 K/mm3 (0.0-0.8); MONO % 9.2 % (0.0-5.0); NEUTROPHILS # 3.1 K/mm3 (1.8-7.7); NEUTROPHILS % 55.3 % (36.0-66.0); PLATELET COUNT, AUTOMATED 246 k/mm3 (150-450); RED CELL DISTRIBUTION WIDTH 18.3 % (11.5-14.5); WHITE BLOOD COUNT 5.5 K/mm3 (4.0-10.0)
[2017-01-05 06:59] LABS: ANION GAP 4 MEQ/L (8-16); BLOOD UREA NITROGEN 5 MG/DL (7-18); CARBON DIOXIDE LEVEL 30 MEQ/L (21-32); CHLORIDE LEVEL 112 MEQ/L (98-107); CREATININE FOR GFR 0.87 MG/DL (0.70-1.30); GLOMERULAR FILTRATION RATE > 60.0 (>60); GLUCOSE, FASTING 98 MG/DL (70-105); POTASSIUM SERUM 4.4 MEQ/L (3.5-5.1); SODIUM LEVEL 146 MEQ/L (136-145)
[2017-01-05] MEDS: NORCO, ANEXSIA 5/325MG TABLET (HYDROcodone/ACETAMINOPHEN) PO PRN ×3 (07:39→20:08)
[2017-01-05] MEDS: LISINOPRIL 20 MG TAB PO SCH (09:29)
[2017-01-05] MEDS: CYANOCOBALAMIN 500 MCG TAB PO SCH (09:29)
[2017-01-05] MEDS: GABAPENTIN 300 MG CAP PO SCH ×3 (09:29→20:07)
[2017-01-05] MEDS: NS 1,000 ML IV SCH (09:29)
[2017-01-05] MEDS: FERROUS SULFATE 325MG TAB PO SCH ×2 (09:29→20:07)
[2017-01-05] MEDS: OMEPRAZOLE 20 MG CAP PO SCH (09:29)
[2017-01-05 14:00] VITALS: BP 160/81
--- NOTE | 2017-01-05 15:55 | IPNPDOC ---
Subjective Date Seen The patient was seen on 01/05/17. Subjective Chief Complaint/HPI The patient is a 51-year-old male admitted with a reason for visit of Postoperative Wound Infection. Events since last encounter Patient states that he feels much better, and would like to go home. He feels that he could lie home on IV antibiotics, and does not need to be here. He is quite frustrated. He denies any fevers, chills, sweats, or pain. Constitutional: Denies: Chills, Fever ENT: Denies: Head Aches, Ear Pain Skin: Reports: Other (wound on right occiput), Denies: Rash Pulmonary: Denies: Dyspnea, Cough Cardiovascular: Denies: Chest Pain, Palpitations Gastrointestinal: Denies: Nausea, Vomiting, Abdominal Pain, Diarrhea, Constipation Genitourinary: Denies: Dysuria Hematologic: Denies: Bruising Other systems 10 point review systems otherwise negative Objective Physical Examination General Exam: Positive: Alert, Cooperative, No Acute Distress Eye Exam: Positive: Conjunctiva & lids normal, Negative: Sclera icteric ENT Exam: Positive: Atraumatic, Mucous membr. moist/pink, Other ENT (3 cm incision site on left occiput draining purulent fluid.~ 5 mL of pus was expressed from the surgical site) Neck Exam: Positive: Supple, Negative: JVD Chest Exam: Positive: Clear to auscultation, Normal air movement Heart Exam: Positive: Rate Normal, Normal S1, Normal S2, Murmurs (3/6 systolic ejection murmur), Negative: Gallops, Rubs Abdomen Exam: Positive: Normal bowel sounds, Soft, Negative: Tenderness Extremity Exam: Negative: Clubbing, Cyanosis, Edema Skin Exam: Positive: Nl turgor and temperature, Other skin issue (surgical site abscess as described above), Negative: Breakdown Neuro Exam: Positive: Normal Speech Psych Exam: Positive: Mental status NL, Mood NL (irritable), Oriented x 3 Assessment /Plan Problems (1) Cellulitis Status: Acute Response to Treatment: Worse, Progressing Discussed With: Nurse, Patient Problem Text: Currently on vancomycin, and improving significantly. Patient is eager to go home. A large quantity of pus was expressed from the surgical wound. Patient was sent for follow-up ultrasound to evaluate for continued fluid collection. Gram stain and culture taken from expressed pus. -Ordered by mouth linezolid for discharge medication to check prior authorization -Follow up wound culture -Follow-up ultrasound results -Plan for discharge tomorrow if no fluid collection remains and linezolid is approved; he will otherwise need to be set up with outpatient infusions (2) History of injury Status: Chronic Response to Treatment: Stable Problem Text: Patient had a injury last May of the 500 pound door hitting him. Ever since then patient has had weakness on his right side. This is chronic. No changes in sensation. Continue patient on home medications for pain. This includes hydrocodone acetaminophen 325 7.5, gabapentin 300 mg 3 times a day,prochlorpeaszine maleate. (3) Migraine Status: Chronic Response to Treatment: Stable Problem Text: Patient has a history of migraines and takes Topamax twice daily as needed. -Home Topamax has been continued (4) GERD (gastroesophageal reflux disease) Status: Chronic Response to Treatment: Stable Problem Text: Continue patient's home medication. Monitor clinically. (5) History of HI (myocardial infarction) Problem Text: Patient had stents placed in 1990. Patient follows up with Dr. Luna for this. -Continue home Lipitor, baby ASA (6) History of gastric bypass Problem Text: Patient has a history of gastric bypass. We'll be giving patient a vitamin B supplement daily. Plan/VTE VTE Prophylaxis Ordered?: Yes (compression stockings) VTE Exclusion Pharmacological: Other (possible need for repeat surgery in or around the cervical spine) Plan Home tomorrow on linezolid. Cx pending. VS, I&O, 24H, Fishbone Vital Signs/I&O Vital Signs Date Time Temp Pulse Resp B/P (MAP) Pulse Ox O2 Delivery O2 Flow Rate FiO2 01/05/17 15:10 18 01/05/17 14:00 97.1 68 160/81 (107) 99 Room Air I&O- Last 24 Hours up to 6 AM 01/05/17 06:00 Intake Total 3730 ml Output Total 600 ml Balance 3130 ml Laboratory Data 24H LABS Laboratory Tests 2 01/05/17 06:16: White Blood Count 5.5, Red Blood Count 4.59, Hemoglobin 12.1L, Hematocrit 38.4L , Mean Corpuscular Volume 83.6, Mean Corpuscular Hemoglobin 26.4L, Mean Corpuscular Hemoglobin Concent 31.5L, Red Cell Distribution Width 18.3H, Platelet Count 246, Neutrophils (%) (Auto) 55.3, Lymphocytes (%) (Auto) 23.0L, Monocytes (%) (Auto) 9.2H, Eosinophils (%) (Auto) 7.6H, Basophils (%) (Auto) 0.7 , Neutrophils # (Auto) 3.1, Lymphocytes # (Auto) 1.5, Monocytes # (Auto) 0.5, Eosinophils # (Auto) 0.4, Basophils # (Auto) 0.0, Large Unclassified Cells % 4.1H, Large Unclassified Cells # 0.2, Anion Gap 4L, Glomerular Filtration Rate > 60.0, Blood Urea Nitrogen 5L, Creatinine 0.87, Sodium Level 146H, Potassium Level 4.4, Chloride Level 112H, Carbon Dioxide Level 30, Calcium Level 8.0L CBC/BMP Laboratory Tests 01/05/17 06:16 Red Blood Count 4.59, Mean Corpuscular Volume 83.6, Mean Corpuscular Hemoglobin 26.4 L, Mean Corpuscular Hemoglobin Concent 31.5 L, Red Cell Distribution Width 18.3 H, Neutrophils (%) (Auto) 55.3, Lymphocytes (%) (Auto) 23.0 L, Monocytes (% ) (Auto) 9.2 H, Eosinophils (%) (Auto) 7.6 H, Basophils (%) (Auto) 0.7, Neutrophils # (Auto) 3.1, Lymphocytes # (Auto) 1.5, Monocytes # (Auto) 0.5, Eosinophils # (Auto) 0.4, Basophils # (Auto) 0.0, Calcium Level 8.0 L Microbiology Microbiology 01/01/17 Blood Culture - Preliminary, Resulted No Growth after 72 hours. All specime... 01/01/17 Blood Culture - Preliminary, Resulted No Growth after 72 hours. All specime... BARRERA ZAMORANO MD Jan 05, 2017 15:55
[2017-01-05] MEDS ORDERED: LINE600T PO (16:44)
--- NOTE | 2017-01-05 19:10 | REP ---
Soft-tissue ultrasound left posterior neck: History: Occipital abscess. Evaluate for remaining fluid collection. Comparison is made with the 01/04/2017 prior study. The patient reports an 11 mL of fluid was withdrawn today. Findings: The area of redness and swelling in the left posterior neck was rescanned. A small hypoechoic area measuring 9 x 8 x 7 mm is seen. This is much smaller than the hypoechoic area seen on the previous day. There is the appearance of a tract to the overlying skin again noted. Impression: Significant improvement as above. Signed by Usama Shrestha MD 01/05/2017 07:14 P
[2017-01-05] MEDS: ATORVASTATIN 20 MG TAB PO SCH (20:07)
[2017-01-05 22:00] VITALS: BP 125/79
[2017-01-06] MEDS: VANCOMYCIN HCL 1,000 MG, VIAL MATE ADAPTER 1 EACH in D5W 250 ML IV SCH ×3 (05:50→21:12)
[2017-01-06 06:00] VITALS: BP 177/93
[2017-01-06] MEDS: NORCO, ANEXSIA 5/325MG TABLET (HYDROcodone/ACETAMINOPHEN) PO PRN ×3 (06:19→21:13)
[2017-01-06 07:16] LABS: BASO % 0.3 % (0.0-1.0); EOS # 0.4 K/mm3 (0.0-0.50); EOS % 6.2 % (0.0-3.0); LARGE UNSTAINED CELL # 0.2 K/mm3 (0.0-0.4); LARGE UNSTAINED CELL % 3.2 % (0.0-4.0); LYMPH # 1.5 K/mm3 (1.5-4.5); LYMPH % 22.2 % (24.0-44.0); MEAN CORPUSCULAR HEMOGLOBIN 26.1 pg (27.0-33.0); MEAN CORPUSCULAR HGB CONC 31.4 g/dl (32.0-36.5); MEAN CORPUSCULAR VOLUME 83.2 fl (80.0-96.0); MONO # 0.5 K/mm3 (0.0-0.8); MONO % 8.6 % (0.0-5.0); NEUTROPHILS # 3.4 K/mm3 (1.8-7.7); NEUTROPHILS % 59.4 % (36.0-66.0); PLATELET COUNT, AUTOMATED 266 k/mm3 (150-450); WHITE BLOOD COUNT 5.8 K/mm3 (4.0-10.0)
[2017-01-06 07:42] LABS: ANION GAP 2 MEQ/L (8-16); BLOOD UREA NITROGEN 7 MG/DL (7-18); CALCIUM LEVEL 8.4 MG/DL (8.5-10.1); CARBON DIOXIDE LEVEL 33 MEQ/L (21-32); CHLORIDE LEVEL 109 MEQ/L (98-107); CREATININE FOR GFR 0.87 MG/DL (0.70-1.30); GLOMERULAR FILTRATION RATE > 60.0 (>60); GLUCOSE, FASTING 106 MG/DL (70-105); POTASSIUM SERUM 4.1 MEQ/L (3.5-5.1); SODIUM LEVEL 144 MEQ/L (136-145)
[2017-01-06] MEDS: GABAPENTIN 300 MG CAP PO SCH ×3 (08:39→20:01)
[2017-01-06] MEDS: OMEPRAZOLE 20 MG CAP PO SCH (08:39)
[2017-01-06] MEDS: CYANOCOBALAMIN 500 MCG TAB PO SCH (08:39)
[2017-01-06] MEDS: LISINOPRIL 20 MG TAB PO SCH (08:40)
[2017-01-06] MEDS: FERROUS SULFATE 325MG TAB PO SCH ×2 (08:40→20:01)
--- NOTE | 2017-01-06 10:31 | IPNPDOC ---
Subjective Date Seen The patient was seen on 01/06/17. Subjective Chief Complaint/HPI The patient is a 51-year-old male admitted with a reason for visit of Postoperative Wound Infection. Events since last encounter Pt states he is feeling better. Notes his abscess has been draining. Denies any headaches, fever, chills. Denies CP, SOB, Abd pain. Constitutional: Denies: Chills, Fever Pulmonary: Denies: Dyspnea Cardiovascular: Denies: Chest Pain Gastrointestinal: Denies: Abdominal Pain Objective Physical Examination General Exam: Positive: Alert, Cooperative, No Acute Distress Eye Exam: Positive: Conjunctiva & lids normal, Negative: Sclera icteric ENT Exam: Positive: Atraumatic, Mucous membr. moist/pink, Other ENT (left occipital area with decreased erythema and swelling. Minimal TTP) Neck Exam: Positive: Supple, Negative: JVD Chest Exam: Positive: Clear to auscultation, Normal air movement Heart Exam: Positive: Rate Normal, Normal S1, Normal S2, Murmurs (3/6 systolic ejection murmur), Negative: Gallops, Rubs Abdomen Exam: Positive: Normal bowel sounds, Soft, Negative: Tenderness Extremity Exam: Negative: Clubbing, Cyanosis, Edema Skin Exam: Positive: Nl turgor and temperature, Other skin issue (surgical site abscess as described above), Negative: Breakdown Neuro Exam: Positive: Normal Speech Psych Exam: Positive: Mental status NL, Mood NL (irritable), Oriented x 3 Assessment /Plan Problems (1) Cellulitis Status: Acute Response to Treatment: Worse, Progressing Discussed With: Nurse, Patient Problem Text: 01/06 - As noted below, a large amount of pus was expressed from wound yesterday. Cultures are pending. Repeat U/S of Occipital abscess from 01/05/17 for comparison with the 01/04/2017 prior study. Report states "The area of redness and swelling in the left posterior neck was rescanned. A small hypoechoic area measuring 9 x 8 x 7 mm is seen. This is much smaller than the hypoechoic area seen on the previous day. There is the appearance of a tract to the overlying skin again noted." PFS is working on prior auth for Zyvox but state that need cx results first. 01/05 - Currently on vancomycin, and improving significantly. Patient is eager to go home. A large quantity of pus was expressed from the surgical wound. Patient was sent for follow-up ultrasound to evaluate for continued fluid collection. Gram stain and culture taken from expressed pus. -Ordered by mouth linezolid for discharge medication to check prior authorization -Follow up wound culture -Follow-up ultrasound results -Plan for discharge tomorrow if no fluid collection remains and linezolid is approved; he will otherwise need to be set up with outpatient infusions (2) History of injury Status: Chronic Response to Treatment: Stable Problem Text: Patient had a injury last May of the 500 pound door hitting him. Ever since then patient has had weakness on his right side. This is chronic. No changes in sensation. Continue patient on home medications for pain. This includes hydrocodone acetaminophen 325 7.5, gabapentin 300 mg 3 times a day,prochlorpeaszine maleate. (3) Migraine Status: Chronic Response to Treatment: Stable Problem Text: Patient has a history of migraines and takes Topamax twice daily as needed. -Home Topamax has been continued (4) GERD (gastroesophageal reflux disease) Status: Chronic Response to Treatment: Stable Problem Text: Continue patient's home medication. Monitor clinically. (5) History of CA (myocardial infarction) Problem Text: Patient had stents placed in 1990. Patient follows up with Dr. Luna for this. -Continue home Lipitor, baby ASA (6) History of gastric bypass Problem Text: Patient has a history of gastric bypass. We'll be giving patient a vitamin B supplement daily. Plan/VTE VTE Prophylaxis Ordered?: Yes (compression stockings) VTE Exclusion Pharmacological: Other (possible need for repeat surgery in or around the cervical spine) VS, I&O, 24H, Fishbone Vital Signs/I&O Vital Signs Date Time Temp Pulse Resp B/P (MAP) Pulse Ox O2 Delivery O2 Flow Rate FiO2 01/06/17 08:40 177/93 01/06/17 06:49 16 Room Air 01/06/17 06:00 97.5 43 98 I&O- Last 24 Hours up to 6 AM 01/06/17 06:00 Intake Total 3090 ml Output Total 0 ml Balance 3090 ml Laboratory Data 24H LABS Laboratory Tests 2 01/06/17 06:39: White Blood Count 5.8, Red Blood Count 4.60, Hemoglobin 12.0L, Hematocrit 38.2L , Mean Corpuscular Volume 83.2, Mean Corpuscular Hemoglobin 26.1L, Mean Corpuscular Hemoglobin Concent 31.4L, Red Cell Distribution Width 18.0H, Platelet Count 266, Neutrophils (%) (Auto) 59.4, Lymphocytes (%) (Auto) 22.2L, Monocytes (%) (Auto) 8.6H, Eosinophils (%) (Auto) 6.2H, Basophils (%) (Auto) 0.3 , Neutrophils # (Auto) 3.4, Lymphocytes # (Auto) 1.5, Monocytes # (Auto) 0.5, Eosinophils # (Auto) 0.4, Basophils # (Auto) 0.0, Large Unclassified Cells % 3.2 , Large Unclassified Cells # 0.2, Anion Gap 2L, Glomerular Filtration Rate > 60.0, Blood Urea Nitrogen 7, Creatinine 0.87, Sodium Level 144, Potassium Level 4.1, Chloride Level 109H, Carbon Dioxide Level 33H, Calcium Level 8.4L, C- Reactive Protein, Quantitative 1.42H CBC/BMP Laboratory Tests 01/06/17 06:39 Red Blood Count 4.60, Mean Corpuscular Volume 83.2, Mean Corpuscular Hemoglobin 26.1 L, Mean Corpuscular Hemoglobin Concent 31.4 L, Red Cell Distribution Width 18.0 H, Neutrophils (%) (Auto) 59.4, Lymphocytes (%) (Auto) 22.2 L, Monocytes (% ) (Auto) 8.6 H, Eosinophils (%) (Auto) 6.2 H, Basophils (%) (Auto) 0.3, Neutrophils # (Auto) 3.4, Lymphocytes # (Auto) 1.5, Monocytes # (Auto) 0.5, Eosinophils # (Auto) 0.4, Basophils # (Auto) 0.0, Calcium Level 8.4 L Microbiology Microbiology 01/01/17 Blood Culture - Preliminary, Resulted No Growth after 72 hours. All specime... 01/01/17 Blood Culture - Preliminary, Resulted No Growth after 72 hours. All specime... 01/05/17 Gram Stain, Received Pending 01/05/17 Wound Culture, Received Pending Kentrell Milian Jan 06, 2017 10:31
[2017-01-06] MEDS: ATORVASTATIN 20 MG TAB PO SCH (20:01)
[2017-01-06 22:00] VITALS: BP 161/86
[2017-01-07] MEDS: VANCOMYCIN HCL 1,000 MG, VIAL MATE ADAPTER 1 EACH in D5W 250 ML IV SCH (05:04)
[2017-01-07] MEDS: NORCO, ANEXSIA 5/325MG TABLET (HYDROcodone/ACETAMINOPHEN) PO PRN ×2 (05:33→12:05)
[2017-01-07 06:00] VITALS: BP 154/84
[2017-01-07 07:37] LABS: BASO % 0.6 % (0.0-1.0); EOS # 0.4 K/mm3 (0.0-0.50); EOS % 5.2 % (0.0-3.0); LARGE UNSTAINED CELL # 0.1 K/mm3 (0.0-0.4); LYMPH # 1.6 K/mm3 (1.5-4.5); LYMPH % 21.5 % (24.0-44.0); MEAN CORPUSCULAR HEMOGLOBIN 26.2 pg (27.0-33.0); MEAN CORPUSCULAR HGB CONC 31.6 g/dl (32.0-36.5); MEAN CORPUSCULAR VOLUME 82.8 fl (80.0-96.0); MONO # 0.6 K/mm3 (0.0-0.8); MONO % 8.5 % (0.0-5.0); NEUTROPHILS # 4.1 K/mm3 (1.8-7.7); NEUTROPHILS % 62.1 % (36.0-66.0); PLATELET COUNT, AUTOMATED 283 k/mm3 (150-450); RED CELL DISTRIBUTION WIDTH 17.5 % (11.5-14.5); WHITE BLOOD COUNT 6.6 K/mm3 (4.0-10.0)
[2017-01-07 07:51] LABS: ANION GAP 4 MEQ/L (8-16); BLOOD UREA NITROGEN 7 MG/DL (7-18); CALCIUM LEVEL 7.8 MG/DL (8.5-10.1); CARBON DIOXIDE LEVEL 31 MEQ/L (21-32); CHLORIDE LEVEL 108 MEQ/L (98-107); CREATININE FOR GFR 0.87 MG/DL (0.70-1.30); GLOMERULAR FILTRATION RATE > 60.0 (>60); GLUCOSE, FASTING 123 MG/DL (70-105); POTASSIUM SERUM 3.9 MEQ/L (3.5-5.1); SODIUM LEVEL 143 MEQ/L (136-145)
[2017-01-07 08:20] VITALS: BP 169/72
[2017-01-07] MEDS: CYANOCOBALAMIN 500 MCG TAB PO SCH (08:20)
[2017-01-07] MEDS: LISINOPRIL 20 MG TAB PO SCH (08:20)
[2017-01-07] MEDS: FERROUS SULFATE 325MG TAB PO SCH (08:20)
[2017-01-07] MEDS: OMEPRAZOLE 20 MG CAP PO SCH (08:21)
[2017-01-07] MEDS: GABAPENTIN 300 MG CAP PO SCH (08:21)
[2017-01-07] MEDS ORDERED: DOXY100C PO (13:16)
--- NOTE | 2017-02-15 20:31 | DS.PDOC ---
Discharge Summary General Date of Admission Jan 01, 2017 at 18:31 Date of Discharge January 07, 2017 Primary Care Physician: MELI URIARTE PA-C Attending Physician: GABE LANDRY DO Discharge Summary PROCEDURES PERFORMED DURING STAY: bedside drainage of abscess ADMITTING DIAGNOSES: 1. cellulitis 2. history of injury 3. migraine 4. GERD 5. history of IN 6. history of gastric bypass DISCHARGE DIAGNOSES: 1. cellulitis and abscess 2. history of injury 3. migraine 4. GERD 5. history of IN 6. history of gastric bypass COMPLICATIONS/CHIEF COMPLAINT: Postoperative Wound Infection. HISTORY OF PRESENT ILLNESS: Patient is a 51-year-old male with past medical history of myocardial infarction, coronary artery disease, GERD, status post gastric bypass, and head trauma from a large 500 pounds falling door presents to the ER with chief complaints of pain and redness in the neck. Patient had a left occipital nerve decompression with neurectomy on 12/01/[address] Quintero. Patient presented to the ED the day prior to admission with pain and redness of his neck; he was discharged on clindamycin. He returned to the ED the neck day for a recheck, and was found to have worsening symptoms and been febrile overnight. Medicine was called to admit the patient. H&P did note a similar event following neurosurgery the year earlier, requiring IV antibiotics. HOSPITAL COURSE: Patient treated with vancomycin, with improvement of symptoms. An US confirmed development of a fluid collection, and it was expressed at bedside; follow up US confirmed improvement of fluid collection. Wound culture grew MSSA, and patient was discharged home on PO antibiotics. DISCHARGE MEDICATIONS: Please see below. ALLERGIES: Please see below. PHYSICAL EXAMINATION ON DISCHARGE: VITAL SIGNS: Please see below. GENERAL: middle aged male in no acute distress HEENT: mucous membranes moist NECK: supple CARDIOVASCULAR EXAMINATION: regular rate and rhythm RESPIRATORY EXAMINATION: clear ABDOMINAL EXAMINATION: soft, nontender and nondistended SKIN: signs of local infection in vicinity of previous surgical scar resolving; erythema greatly improved, no fluctuance LABORATORY DATA: Please see below. IMAGING: soft tissue US posterior neck (01/05) showed: The area of redness and swelling in the left posterior neck was rescanned. A small hypoechoic area measuring 9 x 8 x 7 mm is seen. This is much smaller than the hypoechoic area seen on the previous day. There is the appearance of a tract to the overlying skin again noted. cervical spine MRI 01/01 showed: 1. The patient is status-post C3 to 6 anterior spinal fusion. There is anatomic alignment of the cervical spine. 2. There is cervical spondylosis at the C2-3, C3-4, and C6-7 levels without spinal cord compression. 3. There is edema and or cellulitis in the left posterior subcutaneous tissue and paravertebral tissue extending from the C2-3 level inferior to the C5-6 level. PROGNOSIS: good ACTIVITY: [As tolerated]. DIET: heart healthy DISCHARGE PLAN: DC home DISPOSITION: , Self-Care. DISCHARGE INSTRUCTIONS: 1. Take all medications as prescribed 2. seek urgent medical attention for fever, worsening pain, or signs of worsening infection DISCHARGE CONDITION: [Stable]. TIME SPENT ON DISCHARGE: Greater than 15 minutes. Discharge Medications Scheduled Ascorbic Acid (Vitamin C) 500 Mg Tab, 500 MG PO DAILY, (Reported) Atorvastatin Calcium (Lipitor) 80 Mg Tab, 80 MG PO QHS, (Reported) Cyanocobalamin (Vitamin B-12) 1,000 Mcg Tab, 1,000 MCG PO DAILY, (Reported) Doxycycline Hyclate (Doxycycline Hyclate) 100 Mg Cap, 100 MG PO BID Ferrous Sulfate (Ferrous Sulfate) 325 Mg Tab, 325 MG PO BID, (Reported) Gabapentin (Gabapentin) 300 Mg Cap, 300 MG PO TID, (Reported) Lisinopril (Lisinopril) 20 Mg Tab, 20 MG PO DAILY, (Reported) Omeprazole (Omeprazole) 20 Mg Cap, 20 MG PO DAILY, (Reported) Tizanidine Hydrochloride (Tizanidine HCl) 2 Mg Cap, 2 MG PO DAILY, (Reported) Scheduled PRN Acetaminophen/Hydrocodone (Hydrocodone/Acetaminophen 7.5-325 mg) 1 Tab Tab, 1 TAB PO BIDP PRN for pain, (Reported) Docusate Sodium (Colace) 100 Mg Cap, 100 MG PO BIDP PRN for CONSTIPATION, ( Reported) Prochlorperazine Maleate (Prochlorperazine Maleate) 10 Mg Tab, 10 MG PO TIDP PRN for NAUSEA, (Reported) Topiramate (Topiramate) 25 Mg Tab, 25 MG PO BIDP PRN for MIGRAINE, (Reported) Allergies Coded Allergies: Tramadol (Unverified Allergy, Unknown, DOPEY, TURNED WHITE; ITCHING, ) NSAIDs (Verified Adverse Reaction, Unknown, GASTRIC BYPASS, 11/20/16) GABE LANDRY DO Feb 15, 2017 20:31
== END 2017-01-07 14:42 | disposition home or self-care (01) | DRG 721 ==
LOC: M ED 11:56 → M ED INP 18:31 → M MS5PR 19:40
PROVIDERS: ADMIT Internal Medicine; ATTEND Family Medicine
DX: T81.4XXA Infection following a procedure, initial encounter (principal); A41.9 Sepsis, unspecified organism; L03.221 Cellulitis of neck; I25.2 Old myocardial infarction; K21.9 Gastro-esophageal reflux disease without esophagitis; I25.10 Atherosclerotic heart disease of native coronary artery without angina pectoris; Z79.899 Other long term (current) drug therapy; Z88.8 Allergy status to other drugs, medicaments and biological substances; M47.812 Spondylosis without myelopathy or radiculopathy, cervical region; I10 Essential (primary) hypertension; E78.00 Pure hypercholesterolemia, unspecified; Z87.891 Personal history of nicotine dependence; G43.909 Migraine, unspecified, not intractable, without status migrainosus; D50.9 Iron deficiency anemia, unspecified; Y83.8 Other surgical procedures as the cause of abnormal reaction of the patient, or of later complication, without mention of misadventure at the time of the procedure

== ENCOUNTER → 2017-01-13 | Outpatient (CLI) | payer OTHER ==
[~2017-01-13] MED LIST changes: +ACET-71 PO; -ACET1TAB16 PO; -ASPI325T24 PO; +ASPI32ECTA PO; -CLIN150C14 PO; +CLIN1CAP5 PO; +COLA100C3 PO; -COLA100C5 PO; +DILA2TAB2 PO; -DILA2TAB6 PO; +DOXY100C PO; +LINE600T PO; -TOPI25TA10 PO; +TOPI25TA5 PO; +VITA10002 PO; +VITA100037 PO; -VITA100067 PO; +VITA500T88 PO
--- NOTE | 2017-01-23 00:51 | ECWPNPC ---
PATIENT NAME: DENISE GILL : 1965 GENDER: MALE VISIT DATE: 01/13/2017 DISCHARGE DATE: 01/13/17 1436 VISIT LOCKED DATE TIME: PHYSICIAN: DESTINY DIAS PHYSICIAN PAGER NO: [phone] RESOURCE: DESTINY DIAS REASON FOR APPOINTMENT 1. W/C HEAD AND NECK HISTORY OF PRESENT ILLNESS HISTORY OF PRESENT ILLNESS: PAIN THE PATIENT DESCRIBES THE PAIN... 51 YEAR OLD MALE PATIENT WITH HISTORY OF NECK AND HEAD PAIN. PATIENT DESCRIBES THE PAIN SORE WITH A PAIN SCORE OF 5/10 ON TODAY'S VISIT. 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 PATIENT WAS INJURED WHEN A BARN DOOR SLIDE DOWN AND HIT HIM, INJURING HIS NECK AND HEAD. PATIENT STATES THAT PHYSICAL THERAPY ONLY MADE THE PAIN WORST ESPECIALLY WHEN THEY USE THE TENS UNITS. PATIENT REPORTS THAT HE HAS HAD SURGERY ON HIS NECK ONE WEEK AFTER THE INJURY DATE AND ANOTHER SURGERY ON THE November TO CUT THE NERVE. PATIENT STATES THAT ON THE December HE WAS ADMITTED INTO THE HOSPITAL DUE TO AN INFECTION OF THE CELLULITIS AND WAS DISCHARGED ON THE December. PATIENT REPORTS THAT WITH THE SURGERY, HIS NECK PAIN AND HEADACHES HAVE GREATLY GONE DOWN, HE IS CURRENTLY TAKING HYDROCODONE-ACETAMINOPHEN WHICH HELPS WITH DECREASING THE PAIN, BUT THERE IS STILL PAIN LEFT. PATIENT REPORTS THAT HE IS TAKING CLINDAMYCIN TO HELP WITH THE INJECTION AND HAS ABOUT 3 DAYS LEFT OF IT. ALSO THE RADIATING PAIN DOWN THE ARMS IS GONE SINCE THE SURGERY. PATIENT STATES THAT HE IS STILL HAVE DIFFICULTIES SLEEPING AT NIGHT. PATIENT IS WONDERING WHETHER SOMETIME DIFFERENT OR STRONGER CAN BE GIVEN TO HIM TO HELP HIM SLEEP AT NIGHT. PATIENT DENIES UNEXPLAINABLE WEIGHT LOSS, FEVER, CHILLS, NEW CHANGES ON HER URINARY OR BOWEL CONTROL. FALL RISK SCREENING: SCREENING :NO FALLS IN THE PAST YEAR CURRENT MEDICATIONS TAKING TOPIRAMATE 25 MG TABLET 1 TABLET ORALLY TWICE A DAY FOR PAIN TAKING TIZANIDINE HCL 2 MG TABLET 1 TABLET NEEDED ORALLY FOR SPASMS AND PAIN BEFORE BEDTIME MAY REPEAT 4 HRS AFTER MDD2 TAKING GABAPENTIN 300 MG CAPSULE 1 CAPSULE ORALLY TID TAKING ATORVASTATIN CALCIUM 80 MG TABLET 1 TAB ORAL DAILY TAKING LISINOPRIL 20 MG TABLET 1 TAB ORALLY DAILY TAKING IRON 325 (65 FE) MG TABLET 1 TABLET ORALLY TWICE DAILY TAKING OMEPRAZOLE 20 MG CAPSULE DELAYED RELEASE 1 CAP ORALLY TWICE DAILY NEEDED TAKING PROCHLORPERAZINE MALEATE 10 MG TABLET 1 TABLET ORALLY THREE TIMES DAILY NEEDED TAKING VITAMIN D3 2000 UNIT CAPSULE 1 CAPSULE ORALLY ONCE A DAY TAKING HYDROCODONE-ACETAMINOPHEN 7.5-325 MG TABLET 1 TABLET NEEDED ORALLY BID NEEDED FOR PAIN MDD2 TAKING CLINDAMYCIN HCL 150 MG CAPSULE 1 CAPSULES ORALLY EVERY 6 HRS TAKING VITAMIN C 500 MG CAPSULE ORALLY DAILY TAKING VITAMIN B12 1000 MCG TABLET EXTENDED RELEASE 1 TABLET ORALLY ONCE A DAY TAKING COLACE 100 MG CAPSULE 1 CAPSULE NEEDED ORALLY ONCE A DAY NOT-TAKING HYDROCODONE-ACETAMINOPHEN 5-325 MG TABLET 1 TABLET NEEDED ORALLY EVERY 6 HRS NOT-TAKING HYDROCODONE-ACETAMINOPHEN 7.5-325 MG TABLET 1 TABLET NEEDED ORALLY BID MEDICATION LIST REVIEWED AND RECONCILED WITH THE PATIENT PAST MEDICAL HISTORY HYPERTENSION HIGH CHOLESTEROL GERD POST-OP INFECTED CERVICAL SEROMA/MRSA 05/17 ECHO 10/14--EF65%, LAE 45 MM, AO SCLEROSIS CHRONIC IRON DEFICIENCY ANEMIA, ON IRON "FOR YEARS", IRON STUDIES LOW 09/18 BRADYCARDIA, W/U DIANE AND ECHO DR KEATING S/P GASTRIC BYPASS SX, 290# WT LOSS HEAD TRAUMA FROM FALLEN DOOR CAD, HX [place] 1988 ALLERGIES TRAMADOL HCL: DIZZY- "WIERD ACTING": ALLERGY SURGICAL HISTORY CERVICAL FUSION 05/2016 GASTRIC BYPASS 2006 RIGHT OCCIPITAL BLOCK 2015 RIGHT OCCIPITAL BLOCK 2015 COLONOSCOPY (HYPERPLASTIC POLYPS ONLY) 11/14 JEJUNAL ULCER (NOT BLEEDING) 11/14 CARDIAC CATH WITH STENTS 1990 ALL TEETH EXTRACTED 09/2016 FAMILY HISTORY FATHER: , DIAGNOSED WITH DIABETES, HYPERTENSION MOTHER: ALIVE, DIAGNOSED WITH HYPERTENSION SOCIAL HISTORY GENERAL: TOBACCO USE ARE YOU A:NONSMOKER BMI CARE GOAL FOLLOW-UP ABOVE NORMAL BMI FOLLOW-UPDIETARY NEEDS EDUCATION ALCOHOL SCREENING DID YOU HAVE A DRINK CONTAINING ALCOHOL IN THE PAST YEAR?YES POINTS1 INTERPRETATIONNEGATIVE HOW OFTEN DID YOU HAVE A DRINK CONTAINING ALCOHOL IN THE PAST YEAR?MONTHLY OR LESS (1 POINT) HOW MANY DRINKS DID YOU HAVE ON A TYPICAL DAY WHEN YOU WERE DRINKING IN THE PAST YEAR?1 OR 2 (0 POINTS) HOW OFTEN DID YOU HAVE SIX OR MORE DRINKS ON ONE OCCASION IN THE PAST YEAR?NEVER (0 POINTS) ALEVISM ALEVISM NO PREFERENCE LEARNING BARRIERS / SPECIAL NEEDS CHANGE FROM LAST VISIT?NO BARRIERS TO LEARNING?NO HEARING IMPAIRED?NO VISION IMPAIRED?YES :CORRECTIVE LENSES COGNITIVELY IMPAIRED?NO READINESS TO LEARN?YES LEARNING PREFERENCES?NO LEARNING CAPABILITIES PRESENT?YES EMOTIONAL BARRIERS?NO SPECIAL DEVICES?NO 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 ADVANCE DIRECTIVES HEALTH CARE PROXY?YES NAME OF HCP DANNA GILL CONTACT # FOR HCP DO YOU HAVE A COPY WITH YOU?NO HOSPITALIZATION/MAJOR DIAGNOSTIC PROCEDURE RELATED TO SURGERY ADMITTED DUE TO INFECTION CONCUSSION/HEADINJURY 05/17 [place] 1990 REVIEW OF SYSTEMS REVIEWED BY: PROVIDER: DESTINY DIAS MD . CONSTITUTIONAL: ANY CHANGE IN YOUR MEDICAL CONDITION? YES, INFECTION CELLULITIS OF SURGICAL SITE LEFT NECK. WAS HOSPITALIZED. . CHILLS NO . FEVER YES, 104 . INFECTION: DO YOU HAVE NEW INFECTIONS? NO . DO YOU HAVE HISTORY OF MRSA? NO . MUSCULOSKELETAL: ANY NEW PATTERNS OF PAIN OR NUMBNESS? NO . GASTROENTEROLOGY: ANY NEW CHANGE IN BOWEL CONTROL? NO . GENITOURINARY: ANY NEW CHANGE IN BLADDER CONTROL? NO . IS THERE A CHANCE YOU COULD BE ? NO . HEMATOLOGY/LYMPH: DO YOU TAKE ANY BLOOD THINNERS? (FOR EXAMPLE- COUMADIN, PLAVIX, AGGRENOX, PLATEL, PRADAXA, OR XARELTO) NO . WHEN WAS YOUR LAST DOSE? DATE: TIME: . NEUROLOGY: HAVE YOU FALLEN IN THE PAST 6 MONTHS? YES . ANY NEW EXTREMITY NUMBNESS OR WEAKNESS? NO . CARDIOLOGY: DO YOU HAVE A PACEMAKER OR DEFIBRILLATOR? NO . RESPIRATORY: HAVE YOU BEEN SICK IN THE PAST WEEK? NO . FEVER NO . FLU LIKE SYMPTOMS? NO . COUGH NO . INTEGUMENTARY: DO YOU HAVE ANY RASHES OR OPEN SORES? NO . ALLERGIC/IMMUNO: ARE YOU ALLERGIC TO SHELLFISH OR IV DYE? NO . ANY NEW ALLERGIES? NO . PSYCHIATRIC: DO YOU HAVE THOUGHTS OF HURTING YOURSELF OR SOMEONE ELSE? NO . ARE YOU ABUSED, NEGLECTED, OR IN AN UNSAFE ENVIRONMENT? NO . ENDOCRINOLOGY: ARE YOU DIABETIC? NO . OTHER: DO YOU NEED ANY PRESCRIPTIONS? NO . IF YES, PLEASE LIST: ____ . ANY NEW PROBLEMS WITH YOUR MEDICATIONS? NO . WHEN DID YOU LAST EAT? ____ . WHEN DID YOU LAST DRINK? ____ . WHAT DID YOU LAST DRINK? ____ . NAME OF PERSON DRIVING YOU HOME? ____ . DO YOU HAVE ANY OTHER QUESTIONS OR CONCERNS YES, HAVING TROUBLE SLEEPING. CAN THE TIZANIDINE BE INCREASED? . VITAL SIGNS WT 196.0 LBS, HT 5'9", BMI 28.94 INDEX, BP 154/90 MM HG, HR 63 /MIN, RR 16 /MIN, TEMP 98.4 F, OXYGEN SAT % 98%, NA INITIALS TL 1250, REVIEWED BY: CM. ASSESSMENTS POSTLAMINECTOMY SYNDROME, NOT ELSEWHERE CLASSIFIED - M96.1 (PRIMARY) CERVICALGIA - M54.2 TREATMENT POSTLAMINECTOMY SYNDROME, NOT ELSEWHERE CLASSIFIED REFILL GABAPENTIN CAPSULE, 300 MG, 1 CAPSULE, ORALLY, TID, 90 DAYS, 270 CAPSULE, REFILLS 0 REFILL HYDROCODONE-ACETAMINOPHEN TABLET, 7.5-325 MG, 1 TABLET NEEDED, ORALLY, BID NEEDED FOR PAIN MDD2, 30 DAY(S), 55, REFILLS 0 NOTES: WE DISCUSSED SEVERAL ISSUES WITH MR. GILL'S PATTEN MANAGEMENT CASE. AT THIS TIME THE PATIENT IS USING HYDROCODONE FOR SOMATIC PAIN, GABAPENTIN FOR NEUROPATHIC PAIN, TIZANIDINE NEEDED FOR SPASTICITY, AND TOPIRAMATE FOR NEUROPATHIC PAIN AND HEADACHES. AT THIS TIME I WILL INCREASE THE DOSAGE FOR TIZANIDINE FOR THE PATIENT. UTOX DONE ON 11/04/2016 SHOWS CONSISTENT RESULTS, WITH WHAT WAS PRESCRIBED FOR THE PATIENT. PATIENT REPORTS THAT HE IS DOING OKAY AT THIS TIME. PATIENT WILL FOLLOW UP WITH ME IN 10 WEEKS. INSTRUCTIONS WERE GIVEN, QUESTIONS WERE ANSWERED, PATIENT REPORTS UNDERSTANDING AND AGREES WITH THE PLAN. I, MARTIN WALTON, DOCUMENTED THE ABOVE INFORMATION ACTING A SCRIBE FOR DR. DIAS. I HAVE REVIEWED THE ABOVE DOCUMENT, WRITTEN BY MARTIN WALTON SCRIBKam AND I VERIFY THAT IT IS ACCURATE. OTHERS REFILL TOPIRAMATE TABLET, 25 MG, 1 TABLET, ORALLY, TWICE A DAY FOR PAIN, 30 DAY(S), 60, REFILLS 2 REFILL TIZANIDINE HCL TABLET, 4 MG, 1 TABLET NEEDED, ORALLY, BEFORE BEDTIME MAY REPEAT 4 HRS AFTER MDD2, 30 DAY(S), 50, REFILLS 2 PROCEDURES PN WORKMANS' COMP OPINION IN YOUR OPINION, WAS THE INCIDENT THAT THE PATIENT DESCRIBED THE COMPETENT MEDICAL CAUSE OF THIS INJURY/ILLNESS? YES ARE THE PATIENT'S COMPLAINTS CONSISTENT WITH HIS/HER HISTORY OF THE INJURY/ILLNESS? YES IS THE PATIENT'S HISTORY OF THE INJURY/ILLNESS CONSISTENT WITH YOUR OBJECTIVE FINDING? YES WHAT IS THE PERCENTAGE OF TEMPORARY IMPAIRMENT? MODERATE TO MARKED = 66.7% IS THE PATIENT WORKING? NO DOCTOR ON SITE: DESTINY GARNETT MD PROCEDURE CODES FA211 ESTABILISHED PATIENT [facility] CHARGE G8730 PAIN ASSESS POS TOOL F/U PLAN DOC G8427 DOC MEDS VERIFIED W/PT OR RE DISPOSITION & COMMUNICATION FOLLOW UP 10 WEEKS ELECTRONICALLY SIGNED BY DESTINY DIAS MD ON 01/22/2017 AT 08:18 AM EDT DISCLAIMER : THIS IS A VISIT SUMMARY EXTRACTED FROM THE [employer] CHART. IT IS NOT A COPY OF THE [employer] PROGRESS NOTE. MTDD
== END ==
LOC: M PAIN 13:00
PROVIDERS: ATTEND Anesthesiology
DX: M96.1 Postlaminectomy syndrome, not elsewhere classified (principal); M54.2 Cervicalgia; I11.9 Hypertensive heart disease without heart failure; E78.00 Pure hypercholesterolemia, unspecified; E78.5 Hyperlipidemia, unspecified; E55.9 Vitamin D deficiency, unspecified; K21.9 Gastro-esophageal reflux disease without esophagitis; D50.9 Iron deficiency anemia, unspecified; Z88.5 Allergy status to narcotic agent; Z79.899 Other long term (current) drug therapy; Z87.820 Personal history of traumatic brain injury

== ENCOUNTER → 2017-04-13 | Outpatient (REF) | payer OTHER ==
[~2017-04-13] MED LIST changes: -ACET-71 PO; +ACET1TAB16 PO; +ASPI325T24 PO; -ASPI32ECTA PO; +CLIN150C14 PO; -CLIN1CAP5 PO; -COLA100C3 PO; +COLA100C5 PO; -DILA2TAB2 PO; +DILA2TAB6 PO; +MIRT15TA3 PO; +TIZANIDINE; +TOPI25TA10 PO; -TOPI25TA5 PO; -VITA100037 PO; +VITA100067 PO
[2017-04-13 20:14] LABS: ALBUMIN 3.8 GM/DL (3.2-5.2); ALBUMIN/GLOBULIN RATIO 1.36 (1.00-1.93); ALKALINE PHOSPHATASE 57 U/L (45-117); ALT/SGPT 35 U/L (12-78); ANION GAP 8 MEQ/L (8-16); AST/SGOT 21 U/L (15-37); BILIRUBIN,TOTAL 0.5 MG/DL (0.2-1.0); BLOOD UREA NITROGEN 11 MG/DL (7-18); CALCIUM LEVEL 9.2 MG/DL (8.5-10.1); CARBON DIOXIDE LEVEL 28 MEQ/L (21-32); CHLORIDE LEVEL 105 MEQ/L (98-107); CREATININE FOR GFR 0.84 MG/DL (0.70-1.30); FERRITIN 24 NG/ML (26-388); GLOMERULAR FILTRATION RATE > 60.0 (>60); GLUCOSE, FASTING 117 MG/DL (70-105); PERCENT SATURATION 28.7 % (19.7-50.0); SODIUM LEVEL 141 MEQ/L (136-145); TOTAL IRON BINDING CAPACITY 327 UG/DL (250-450); TOTAL PROTEIN 6.6 GM/DL (6.4-8.2)
[2017-04-13 20:16] LABS: MEAN CORPUSCULAR HGB CONC 33.1 g/dl (32.0-36.5); MEAN CORPUSCULAR VOLUME 90.6 fl (80.0-96.0); RED CELL DISTRIBUTION WIDTH 15.2 % (11.5-14.5); RETICULOCYTE % 1.5 % (0.5-1.5); WHITE BLOOD COUNT 7.2 K/mm3 (4.0-10.0)
== END ==
LOC: M SFHCADAM 15:25
PROVIDERS: ATTEND Physician Assistant
DX: D50.9 Iron deficiency anemia, unspecified (principal); I11.9 Hypertensive heart disease without heart failure

== ENCOUNTER 2017-04-29 15:31 | Emergency (ER) | payer OTHER ==
[~2017-04-29] VITALS: Ht 172.7 cm; Wt 90.9 kg
[~2017-04-29 15:31] MED LIST changes: -MIRT15TA3 PO; -TIZANIDINE
[2017-04-29] MEDS ORDERED: MIRT15TA3 PO (15:48)
[2017-04-29] MEDS ORDERED: TIZANIDINE (15:48)
[2017-04-29] MEDS ORDERED: HYDROmorphone HCL 1 MG/ML SYRINGE (J1170) IM ONE (18:00)
[2017-04-29 20:34] VITALS: BP 172/96
== END 2017-04-29 20:45 | disposition home or self-care (01) ==
LOC: M ED 15:31
DX: G89.29 Other chronic pain (principal); M54.5 Low back pain; Z87.891 Personal history of nicotine dependence; Z95.5 Presence of coronary angioplasty implant and graft; Z98.84 Bariatric surgery status; Z86.73 Personal history of transient ischemic attack (TIA), and cerebral infarction without residual deficits; R51 Headache; R29.6 Repeated falls; I25.2 Old myocardial infarction; E78.00 Pure hypercholesterolemia, unspecified; I10 Essential (primary) hypertension; J45.909 Unspecified asthma, uncomplicated; G47.30 Sleep apnea, unspecified; Z87.01 Personal history of pneumonia (recurrent); F41.9 Anxiety disorder, unspecified; F32.9 Major depressive disorder, single episode, unspecified; D75.9 Disease of blood and blood-forming organs, unspecified; Z86.14 Personal history of Methicillin resistant Staphylococcus aureus infection; Z98.890 Other specified postprocedural states; Z79.899 Other long term (current) drug therapy; Z88.6 Allergy status to analgesic agent; Z88.5 Allergy status to narcotic agent
CPT/HCPCS: 96372; 99282; J1170

== ENCOUNTER → 2017-05-05 | Outpatient (CLI) | payer OTHER ==
[~2017-05-05] MED LIST changes: +MIRT15TA3 PO; +TIZANIDINE
--- NOTE | 2017-05-05 17:35 | REP ---
THORACIC SPINE, THREE VIEWS: HISTORY: Thoracolumbar pain. There is no acute fracture or subluxation. The intervertebral discs are normal in height. Osteophytes are present in the lower thoracic spine. IMPRESSION: There is no acute fracture or subluxation. Signed by Brad Carter MD 05/05/2017 05:37 P
--- NOTE | 2017-05-05 17:37 | REP ---
LUMBAR SPINE, FIVE VIEWS: HISTORY: Thoracolumbar pain. There is no acute fracture or subluxation. The L2-3 through L4-5 intervertebral discs are decreased in height consistent with disc degeneration. Osteophytes are present on L1, L3 and L4. The facet joints are normal in appearance. IMPRESSION: Degenerative change as described above. Signed by Brad Carter MD 05/05/2017 05:51 P
== END ==
LOC: M ADAMS 16:27
PROVIDERS: ATTEND Family Medicine
DX: M54.5 Low back pain (principal)

== ENCOUNTER → 2017-05-07 | Outpatient (CLI) | payer OTHER ==
--- NOTE | 2017-05-13 00:05 | ECWPNPC ---
PATIENT NAME: DENISE GILL : 1965 GENDER: MALE VISIT DATE: 05/07/2017 DISCHARGE DATE: 05/07/17 1630 VISIT LOCKED DATE TIME: PHYSICIAN: DESTINY DIAS PHYSICIAN PAGER NO: [phone] RESOURCE: DESTINY DIAS REASON FOR APPOINTMENT 1. W/C, NECK PAIN HISTORY OF PRESENT ILLNESS HISTORY OF PRESENT ILLNESS: PAIN THE PATIENT DESCRIBES THE PAIN... THE PATIENT DESCRIBES THE PAIN... 51 YEAR OLD MALE PATIENT WITH HISTORY OF NECK AND HEAD PAIN. PATIENT DESCRIBES THE PAIN SORE WITH A PAIN SCORE OF 4/10 ON TODAY'S VISIT. 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 PATIENT WAS INJURED WHEN A BARN DOOR SLIDE DOWN AND HIT HIM, INJURING HIS NECK AND HEAD. PATIENT STATES THAT PHYSICAL THERAPY ONLY MADE THE PAIN WORST ESPECIALLY WHEN THEY USE THE TENS UNITS. PATIENT REPORTS THAT HE HAS HAD SURGERY ON HIS NECK ONE WEEK AFTER THE INJURY DATE AND ANOTHER SURGERY ON THE November TO CUT THE OCCIPITAL NERVE. PATIENT STATES THAT ON THE December HE WAS ADMITTED INTO THE HOSPITAL DUE TO AN INFECTION OF THE CELLULITIS AND WAS DISCHARGED ON THE December. PATIENT REPORTS THAT WITH THE SURGERY, HIS NECK PAIN AND HEADACHES HAVE GREATLY GONE DOWN, HE IS CURRENTLY TAKING HYDROCODONE-ACETAMINOPHEN WHICH HELPS WITH DECREASING THE PAIN, BUT THERE IS STILL PAIN LEFT. PATIENT STATES THAT HE IS STILL HAVE DIFFICULTIES SLEEPING AT NIGHT. PATIENT DENIES UNEXPLAINABLE WEIGHT LOSS, FEVER, CHILLS, NEW CHANGES ON HER URINARY OR BOWEL CONTROL. FALL RISK SCREENING: SCREENING :NO FALLS IN THE PAST YEAR :NO FALLS IN THE PAST YEAR SCREENING :NO FALLS IN THE PAST YEAR :NO FALLS IN THE PAST YEAR CURRENT MEDICATIONS TAKING IRON 325 (65 FE) MG TABLET 1 TABLET ORALLY TWICE DAILY TAKING VITAMIN D3 2000 UNIT CAPSULE 1 CAPSULE ORALLY ONCE A DAY TAKING VITAMIN C 500 MG CAPSULE ORALLY DAILY TAKING VITAMIN B12 1000 MCG TABLET EXTENDED RELEASE 1 TABLET ORALLY ONCE A DAY TAKING COLACE 100 MG CAPSULE 1 CAPSULE NEEDED ORALLY ONCE A DAY TAKING GABAPENTIN 300 MG CAPSULE 1 CAPSULE ORALLY TID TAKING TOPIRAMATE 25 MG TABLET 1 TABLET ORALLY TWICE A DAY FOR PAIN TAKING ATORVASTATIN CALCIUM 80 MG TABLET 1 TAB ORAL DAILY TAKING OMEPRAZOLE 20 MG CAPSULE DELAYED RELEASE 1 CAP ORALLY TWICE DAILY NEEDED TAKING LISINOPRIL 20 MG TABLET 1 TAB ORALLY DAILY TAKING HYDROCODONE-ACETAMINOPHEN 7.5-325 MG TABLET 1 TABLET NEEDED ORALLY BID NEEDED FOR PAIN MDD2 TAKING MIRTAZAPINE 15 MG TABLET 1 TABLET AT BEDTIME ORALLY BEFORE BEDTIME TAKING PROCHLORPERAZINE MALEATE 10 MG TABLET TAKE ONE TABLET BY MOUTH THREE TIMES A DAY NEEDED NOT-TAKING TIZANIDINE HCL 4 MG TABLET 1 TABLET NEEDED ORALLY BEFORE BEDTIME MAY REPEAT 4 HRS AFTER MDD2 MEDICATION LIST REVIEWED AND RECONCILED WITH THE PATIENT PAST MEDICAL HISTORY HYPERTENSION HIGH CHOLESTEROL GERD POST-OP INFECTED CERVICAL SEROMA/MRSA 05/17 ECHO 10/14--EF65%, LAE 45 MM, AO SCLEROSIS CHRONIC IRON DEFICIENCY ANEMIA, ON IRON "FOR YEARS", IRON STUDIES LOW 09/18 BRADYCARDIA, W/U DIANE AND ECHO DR KEATING S/P GASTRIC BYPASS SX, 290# WT LOSS HEAD TRAUMA FROM FALLEN DOOR CAD, HX ME 1988 TOTAL DISABILTY--CERVICAL AND LUMBAR SPINE ISSUES ALLERGIES TRAMADOL HCL: DIZZY- "WIERD ACTING": ALLERGY SURGICAL HISTORY CERVICAL FUSION 05/2016 GASTRIC BYPASS 2006 RIGHT OCCIPITAL BLOCK 2015 RIGHT OCCIPITAL BLOCK 2015 COLONOSCOPY (HYPERPLASTIC POLYPS ONLY) 11/14 JEJUNAL ULCER (NOT BLEEDING) 11/14 CARDIAC CATH WITH STENTS 1990 ALL TEETH EXTRACTED 09/[address] SINGLETARY-- POST OP WOUND INFECTION 11/2016 FAMILY HISTORY FATHER: , DIAGNOSED WITH DIABETES, HYPERTENSION MOTHER: ALIVE, DIAGNOSED WITH HYPERTENSION SOCIAL HISTORY GENERAL: TOBACCO USE ARE YOU A:NONSMOKER BMI CARE GOAL FOLLOW-UP ABOVE NORMAL BMI FOLLOW-UPDIETARY NEEDS EDUCATION ALCOHOL SCREENING DID YOU HAVE A DRINK CONTAINING ALCOHOL IN THE PAST YEAR?YES HOW OFTEN DID YOU HAVE SIX OR MORE DRINKS ON ONE OCCASION IN THE PAST YEAR?NEVER (0 POINTS) HOW MANY DRINKS DID YOU HAVE ON A TYPICAL DAY WHEN YOU WERE DRINKING IN THE PAST YEAR?1 OR 2 (0 POINTS) HOW OFTEN DID YOU HAVE A DRINK CONTAINING ALCOHOL IN THE PAST YEAR?MONTHLY OR LESS (1 POINT) POINTS1 INTERPRETATIONNEGATIVE RECREATIONAL DRUG USE DRUG USE?NO PATIENT DENIES ABUSE OR MISSUSED OF ANY MEDICATION. PATIENT DENIES USE OF ANY ILLEGAL SUBSTANCE INCLUDING MARIJUANA OR COCAINE. CAFFEINE CAFFEINE USE?YES HOW OFTEN AND HOW MUCH? 1/2 POT A DAY SEXUAL HX HAD SEX IN THE LAST 12 MONTHS (VAGINAL, ORAL, OR ANAL)?YES WITHWOMEN ONLY USE PROTECTION?YES HOW OFTEN?ALL OF THE TIME HAVE YOU EVER HAD AN STD?NO MARITAL STATUS: SINGLE. MORAVIAN MORAVIAN NO PREFERENCE LEARNING BARRIERS / SPECIAL NEEDS CHANGE FROM LAST VISIT?NO BARRIERS TO LEARNING?NO HEARING IMPAIRED?NO VISION IMPAIRED?YES :CORRECTIVE LENSES COGNITIVELY IMPAIRED?NO READINESS TO LEARN?YES LEARNING PREFERENCES?NO LEARNING CAPABILITIES PRESENT?YES EMOTIONAL BARRIERS?NO SPECIAL DEVICES?NO FLAGGER NEEDED?NO PAIN CLINIC PFS, CLERGY, PUBLIC HEALTH REFERRALS PFS REFERRAL NEEDED?NO CLERGY REFERRAL NEEDED?NO HAS THE PATIENT BEEN EDUCATED REGARDING HIS/HER PLAN OF CARE?YES HAS THE PATIENT BEEN EDUCATED REGARDING PAIN, THE RISK FOR PAIN, THE IMPORTANCE OF EFFECTIVE PAIN MANAGEMENT, AND THE PAIN ASSESSMENT PROCESS?YES PATIENT: ____. ADVANCE DIRECTIVES HEALTH CARE PROXY?YES NAME OF HCP DANNA GILL CONTACT # FOR HCP DO YOU HAVE A COPY WITH YOU?NO NO TRAVEL OUTSIDE US. NO DOMESTIC VIOLENCE . HOSPITALIZATION/MAJOR DIAGNOSTIC PROCEDURE RELATED TO SURGERY ADMITTED DUE TO INFECTION CONCUSSION/HEADINJURY 05/17 [place] 1990 INFECTION 12/2016 REVIEW OF SYSTEMS REVIEWED BY: PROVIDER: , DESTINY DIAS MD . CONSTITUTIONAL: ANY CHANGE IN YOUR MEDICAL CONDITION? HERNIATED DISC - STATES WILL HAVE AN MRI SOON . CHILLS NO, NO . FEVER NO, NO . INFECTION: DO YOU HAVE NEW INFECTIONS? NO, NO . DO YOU HAVE HISTORY OF MRSA? NO, NO . MUSCULOSKELETAL: ANY NEW PATTERNS OF PAIN OR NUMBNESS? NO, NO . GASTROENTEROLOGY: ANY NEW CHANGE IN BOWEL CONTROL? NO, NO . GENITOURINARY: ANY NEW CHANGE IN BLADDER CONTROL? NO, NO . IS THERE A CHANCE YOU COULD BE ? NO, NO . HEMATOLOGY/LYMPH: DO YOU TAKE ANY BLOOD THINNERS? (FOR EXAMPLE- COUMADIN, PLAVIX, AGGRENOX, PLATEL, PRADAXA, OR XARELTO) NO, NO . WHEN WAS YOUR LAST DOSE? DATE: TIME: , DATE: TIME: . NEUROLOGY: HAVE YOU FALLEN IN THE PAST 6 MONTHS? NO, NO . ANY NEW EXTREMITY NUMBNESS OR WEAKNESS? NO, NO . CARDIOLOGY: DO YOU HAVE A PACEMAKER OR DEFIBRILLATOR? NO, NO . RESPIRATORY: HAVE YOU BEEN SICK IN THE PAST WEEK? NO, NO . FEVER NO, NO . FLU LIKE SYMPTOMS? NO, NO . COUGH NO, NO . INTEGUMENTARY: DO YOU HAVE ANY RASHES OR OPEN SORES? NO, NO . ALLERGIC/IMMUNO: ARE YOU ALLERGIC TO SHELLFISH OR IV DYE? NO, NO . ANY NEW ALLERGIES? NO, NO . PSYCHIATRIC: DO YOU HAVE THOUGHTS OF HURTING YOURSELF OR SOMEONE ELSE? NO, NO . ARE YOU ABUSED, NEGLECTED, OR IN AN UNSAFE ENVIRONMENT? NO, NO . ENDOCRINOLOGY: ARE YOU DIABETIC? NO, NO . OTHER: DO YOU NEED ANY PRESCRIPTIONS? YES . IF YES, PLEASE LIST: HYDROCODONE, TOPIRAMATE . ANY NEW PROBLEMS WITH YOUR MEDICATIONS? NO, NO . WHEN DID YOU LAST EAT? ____, ____ . WHEN DID YOU LAST DRINK? ____, ____ . WHAT DID YOU LAST DRINK? ____, ____ . NAME OF PERSON DRIVING YOU HOME? ____, ____ . DO YOU HAVE ANY OTHER QUESTIONS OR CONCERNS NO, NO . VITAL SIGNS WT 208.8 LBS, HT 5'9", BMI 30.83 INDEX, BP 131/77 MM HG, HR 68 /MIN, RR 16 /MIN, TEMP 98.8 F, OXYGEN SAT % 97%, REVIEWED BY: LOU. EXAMINATION : PATIENT IS ALERT O X 3 AND COOPERATIVE. PATIENT IS ABLE TO EXTEND HIS NECK TO 15 DEGREES AND FLEX HIS NECK TO 20 DEGREES. LATERAL MOVEMENT OF THE NECK TO THE LEFT IS 45 DEGREES AND TO THE RIGHT IS 10 DEGREES. ABDUCTION OF THE UPPER EXTREMITIES RIGHT ARM TO SHOULDER LEVEL, LEFT ARM 100 PERCENT. THERE IS TENDERNESS IN THE CERVICAL PARASPINAL MUSCLE GROUP WITH BANDS OF TISSUES, RESTRICTION OF MOVEMENT, AND PRESENCE OF TRIGGER POINTS. PATIENT'S RIGHT ARM IS WEAKER AT FLEXION AND EXTENSION. PATIENT'S RIGHT HAND LENS INSPECTOR IS WEAKER COMPARED TO THE LEFT. CERVICAL X-RAY DONE ON 10/03/16 SHOWS STATUS POST ANTERIOR CERVICAL DISCECTOMY. ASSESSMENTS POSTLAMINECTOMY SYNDROME, NOT ELSEWHERE CLASSIFIED - M96.1 (PRIMARY) RADICULOPATHY OF CERVICAL REGION - M54.12 TREATMENT POSTLAMINECTOMY SYNDROME, NOT ELSEWHERE CLASSIFIED REFILL GABAPENTIN CAPSULE, 300 MG, 1 CAPSULE, ORALLY, TID, 90 DAYS, 270 CAPSULE, REFILLS 0 REFILL HYDROCODONE-ACETAMINOPHEN TABLET, 7.5-325 MG, 1 TABLET NEEDED, ORALLY, BID NEEDED FOR PAIN MDD2, 30 DAY(S), 45, REFILLS 0 NOTES: WE DISCUSSED SEVERAL ISSUES WITH MR. GILL'S PATTEN MANAGEMENT CASE. AT THIS TIME THE PATIENT IS USING HYDROCODONE FOR SOMATIC PAIN, GABAPENTIN FOR THE NEUROPATHIC PAIN AND TOPIRAMATE FOR NEUROPATHIC PAIN AND HEADACHES. PATIENT WAS REMINDED TO BRING ALL MEDICATIONS TO EVERY VISIT. ISTOP REVIEWED [id number]. URINE TOXICOLOGY DONE ON 11/04/16 SHOWS CONSISTENT RESULTS WIT THE PATIENT MEDICATION LIST. PATIENT DENIES ABUSE OF ANY MEDICATION, DENIES USE OF ILLEGAL SUBSTACNES, AND STATES HE IS ONLY USING THE MEDICATION FOR PAIN MANAGEMENT. AT THIS TIME THE PATIENT WOULD LIEK TO CONTINUE WITH MEDICATION MANAGEMENT THE MEDICATIONS KEEP HIM MOBILE AND FUNCTIONAL AT THIS TIME. INSTRUCTIONS WERE GIVEN, QUESTIONS WERE ANSWERED, PATIENT REPORTS UNDERSTANDING AND AGREES WITH THE PLAN. I, MARIO MENJIVAR, DOCUMENTED THE ABOVE INFORMATION ACTING A SCRIBE FOR DR. DIAS. I HAVE REVIEWED THE ABOVE DOCUMENT, WRITTEN BY MARIO CHOWDHURY AND I VERIFY THAT IT IS ACCURATE. PROCEDURES PN WORKMANS' COMP OPINION IN YOUR OPINION, WAS THE INCIDENT THAT THE PATIENT DESCRIBED THE COMPETENT MEDICAL CAUSE OF THIS INJURY/ILLNESS? YES ARE THE PATIENT'S COMPLAINTS CONSISTENT WITH HIS/HER HISTORY OF THE INJURY/ILLNESS? YES IS THE PATIENT'S HISTORY OF THE INJURY/ILLNESS CONSISTENT WITH YOUR OBJECTIVE FINDING? YES WHAT IS THE PERCENTAGE OF TEMPORARY IMPAIRMENT? MODERATE TO MARKED = 66.7% IS THE PATIENT WORKING? NO DOCTOR ON SITE: DESTINY GARNETT MD PROCEDURE CODES FA211 ESTABILISHED PATIENT [facility] CHARGE G8427 DOC MEDS VERIFIED W/PT OR RE G8730 PAIN ASSESS POS TOOL F/U PLAN DOC DISPOSITION & COMMUNICATION FOLLOW UP 3 WEEKS ELECTRONICALLY SIGNED BY DESTINY DIAS MD ON 05/12/2017 AT 12:51 PM EDT DISCLAIMER : THIS IS A VISIT SUMMARY EXTRACTED FROM THE [employer] CHART. IT IS NOT A COPY OF THE [employer] PROGRESS NOTE. MTDD
== END ==
LOC: M PAIN 15:45
PROVIDERS: ATTEND Anesthesiology
DX: M96.1 Postlaminectomy syndrome, not elsewhere classified (principal); M54.12 Radiculopathy, cervical region; E78.00 Pure hypercholesterolemia, unspecified; E55.9 Vitamin D deficiency, unspecified; D50.9 Iron deficiency anemia, unspecified; K21.9 Gastro-esophageal reflux disease without esophagitis; Z79.891 Long term (current) use of opiate analgesic; Z79.899 Other long term (current) drug therapy

== ENCOUNTER 2017-05-19 12:57 | Emergency (ER) | payer OTHER ==
[~2017-05-19] VITALS: Ht 172.7 cm; Wt 91.8 kg
--- NOTE | 2017-05-19 14:08 | ED PDOC ---
Post-Departure Follow-Up PT HAD AXIAL LOAD INJURY LAST MAY IN WHICH A GARAGE DOOR CAME DOWN ON HIS HEAD CAUSING C-SPINE FRACTURES. HE HAS SINCE HAD A C-SPINE FUSION AND STATES HE OFTEN GETS DIZZY WITH CHANGE OF POSITION SINCE THAT INJURY. 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 STATES HE FELL FORWARD AND STRUCK HIS HEAD AND RIGHT SHOULDER ON HIS WORK BENCH. STATES RECALLS ENTIRE INJURY AND DID NOT LOSE CONSCIOUSNESS. STATES LAST TETANUS VACCINE WAS LAST YEAR WITH THE PRIOR INJURY. MADI GALE PA-C May 19, 2017 14:08
--- NOTE | 2017-05-19 14:24 | REP ---
Chest two views HISTORY: Fall Comparison: 06/17/2016 The lungs are clear. The heart is normal in size. The pulmonary vasculature is normal in appearance. The bony structure is intact. IMPRESSION: No acute disease. Signed by Brad Carter MD 05/19/2017 02:16 P
--- NOTE | 2017-05-19 14:41 | REP ---
CT CERVICAL SPINE WITHOUT CONTRAST: HISTORY: Fall. The patient is status post C3-6 anterior spinal fusion. A fixation plate and bone graft material are present. There is no acute fracture or subluxation. Small posterior osteophytes are present at the C3-4 through C6-7 levels. There is minimal narrowing of the spinal canal. Uncinate process hypertrophy is present at the C3-4 and C5-6 levels. There is minimal narrowing of the neural foramina. The remaining neural foramina are patent. The C6-7 intervertebral disc is decreased in height consistent with disc degeneration. IMPRESSION: 1. There is no acute fracture or subluxation. 2. The patient is status post C3-6 anterior spinal fusion. There is anatomic alignment of the cervical spine. Signed by Brad Carter MD 05/19/2017 02:44 P
--- NOTE | 2017-05-19 14:42 | REP ---
RIGHT SHOULDER, THREE VIEWS: HISTORY: Fall. There is no acute fracture or dislocation. There is narrowing of the acromioclavicular joint with associated osteophyte formation. A small exostosis is present along the medial aspect of the proximal humerus. IMPRESSION: There is no acute fracture or dislocation. Signed by Brad Carter MD 05/19/2017 02:43 P
[2017-05-19 14:46] VITALS: BP 144/92
== END 2017-05-19 14:51 | disposition home or self-care (01) ==
LOC: M ED 12:57
DX: S00.93XA Contusion of unspecified part of head, initial encounter (principal); S00.03XA Contusion of scalp, initial encounter; S40.011A Contusion of right shoulder, initial encounter; S06.0X0A Concussion without loss of consciousness, initial encounter; W01.190A Fall on same level from slipping, tripping and stumbling with subsequent striking against furniture, initial encounter; Y92.099 Unspecified place in other non-institutional residence as the place of occurrence of the external cause; Y93.9 Activity, unspecified; Y99.9 Unspecified external cause status; I25.2 Old myocardial infarction; Z86.73 Personal history of transient ischemic attack (TIA), and cerebral infarction without residual deficits; I10 Essential (primary) hypertension; J45.909 Unspecified asthma, uncomplicated; F41.9 Anxiety disorder, unspecified; F32.9 Major depressive disorder, single episode, unspecified; E78.00 Pure hypercholesterolemia, unspecified; Z98.84 Bariatric surgery status; Z98.1 Arthrodesis status; Z87.891 Personal history of nicotine dependence; Z79.899 Other long term (current) drug therapy; Z88.6 Allergy status to analgesic agent; Z88.5 Allergy status to narcotic agent

== ENCOUNTER → 2017-07-06 | Outpatient (CLI) | payer OTHER | LOC: M PAIN 10:00 | DX: M96.1 Postlaminectomy syndrome, not elsewhere classified (principal); G89.29 Other chronic pain; I10 Essential (primary) hypertension; E78.00 Pure hypercholesterolemia, unspecified; K21.9 Gastro-esophageal reflux disease without esophagitis; D50.9 Iron deficiency anemia, unspecified; I25.2 Old myocardial infarction; Z79.891 Long term (current) use of opiate analgesic; Z79.899 Other long term (current) drug therapy; Z88.8 Allergy status to other drugs, medicaments and biological substances; Z98.84 Bariatric surgery status; Z95.5 Presence of coronary angioplasty implant and graft | CPT/HCPCS: G0463 ==

== ENCOUNTER → 2017-09-07 | Outpatient (REF) | payer OTHER ==
[2017-09-07 13:20] LABS: COLLAGEN EPINEPHRINE 73 SECONDS (74-162)
[2017-09-07 13:24] LABS: ALBUMIN 4.1 GM/DL (3.2-5.2); ALBUMIN/GLOBULIN RATIO 1.32 (1.00-1.93); ALKALINE PHOSPHATASE 69 U/L (45-117); ALT/SGPT 33 U/L (12-78); ANION GAP 7 MEQ/L (8-16); AST/SGOT 28 U/L (7-37); BILIRUBIN,TOTAL 0.6 MG/DL (0.2-1.0); BLOOD UREA NITROGEN 10 MG/DL (7-18); CALCIUM LEVEL 8.6 MG/DL (8.5-10.1); CARBON DIOXIDE LEVEL 26 MEQ/L (21-32); CHLORIDE LEVEL 107 MEQ/L (98-107); CREATININE FOR GFR 1.01 MG/DL (0.70-1.30); GLOMERULAR FILTRATION RATE > 60.0 (>60); GLUCOSE, FASTING 96 MG/DL (70-100); POTASSIUM SERUM 4.1 MEQ/L (3.5-5.1); SODIUM LEVEL 140 MEQ/L (136-145); TOTAL PROTEIN 7.2 GM/DL (6.4-8.2)
[2017-09-07 13:25] LABS: INR 0.99; PROTHROMBIN TIME 13.2 SECONDS (12.4-14.5)
[2017-09-07 13:26] LABS: PARTIAL THROMBOPLASTIN TIME 33.4 SECONDS (26.8-37.9)
[2017-09-07 13:37] LABS: BASO # 0.1 10^3/uL (0.0-0.2); EOS # 0.3 10^3/uL (0.0-0.50); EOS % 4.7 % (0.0-3.0); HEMATOCRIT 45.6 % (42.0-52.0); HEMOGLOBIN 15.5 g/dl (14.0-18.0); IMMATURE GRANULOCYTE % 0.1 % (0-0); LYMPH # 2.1 10^3/uL (1.5-4.5); LYMPH % 30.4 % (24.0-44.0); MEAN CORPUSCULAR VOLUME 88.2 fl (80.0-96.0); MONO # 0.7 10^3/uL (0.0-0.8); MONO % 10.5 % (0.0-5.0); NEUTROPHILS # 3.6 10^3/uL (1.8-7.7); NEUTROPHILS % 53.3 % (36.0-66.0); PLATELET COUNT, AUTOMATED 283 10^3/uL (150-450); RED BLOOD COUNT 5.17 10^6/uL (4.30-6.10); RED CELL DISTRIBUTION WIDTH 12.9 % (11.5-14.5); WHITE BLOOD COUNT 6.8 10^3/uL (4.0-10.0)
== END ==
LOC: M LABNEURO 12:53
DX: Z01.812 Encounter for preprocedural laboratory examination (principal)

== ENCOUNTER → 2017-09-08 | Outpatient (CLI) | payer OTHER | LOC: M ADAMS 15:21 | DX: Z01.818 Encounter for other preprocedural examination (principal) | CPT/HCPCS: 71046 ==

== ENCOUNTER 2017-09-29 06:08 | Day surgery (SDC) | payer OTHER ==
[2017-09-29] MEDS ORDERED: LR 1,000 ML IV ×2 (06:15→09:30)
[2017-09-29] MEDS ORDERED: PROPOFOL 200 MG/20 ML VIAL As Ordered ×2 (06:37→08:59)
[2017-09-29] MEDS ORDERED: ROCURONIUM BROMIDE 50 MG/5 ML VIAL As Ordered (06:37)
[2017-09-29] MEDS ORDERED: LIDOCAINE 2% INJ 100 MG/5 ML SDV (FOR ANES.) As Ordered (06:37)
[2017-09-29] MEDS ORDERED: ONDANSETRON 4MG/2ML VIAL (J2405) As Ordered (06:38)
[2017-09-29] MEDS ORDERED: MIDAZOLAM INJ 2 MG/2 ML VIAL (J2250) As Ordered (06:43)
[2017-09-29] MEDS ORDERED: fentaNYL 100 MCG/2 ML INJECTION (J3010) As Ordered (06:50)
[2017-09-29] MEDS ORDERED: CLINDAMYCIN 900 MG/50 ML PREMIX BAG As Ordered (07:38)
[2017-09-29] MEDS ORDERED: methylPREDNISolone SUSP 40 MG/ML (DEPO-medrol) VIAL (J1030) As Ordered (07:38)
[2017-09-29] MEDS ORDERED: LIDOCAINE 1% MDV 20ML VIAL As Ordered (07:38)
[2017-09-29 07:39] LABS: COLLAGEN EPINEPHRINE 132 SECONDS (74-162)
[2017-09-29] MEDS: CLINDAMYCIN 900 MG in APPROPRIATE DILUENT 1 EA IV (08:04)
[2017-09-29] MEDS ORDERED: dexameTHASONE 4 MG/ML 1ML VIAL (J1100) As Ordered (08:21)
[2017-09-29] MEDS ORDERED: NEOSTIGMINE 10 MG/10 ML VIAL (J2710) As Ordered (08:40)
[2017-09-29] MEDS ORDERED: GLYCOPYRROLATE INJ 0.2 MG/ML 2 ML VIAL As Ordered ×2 (08:40)
[2017-09-29] MEDS ORDERED: NORCO, ANEXSIA 5/325MG TABLET (HYDROcodone/ACETAMINOPHEN) As Ordered (09:20)
[2017-09-29] MEDS: NORCO, ANEXSIA 5/325MG TABLET (HYDROcodone/ACETAMINOPHEN) PO ×2 (09:25→09:55)
[2017-09-29] MEDS ORDERED: NORCO, ANEXSIA 5/325MG TABLET (HYDROcodone/ACETAMINOPHEN) PO (09:30)
[2017-09-29] MEDS ORDERED: fentaNYL 100 MCG/2 ML INJECTION (J3010) IV (09:30)
[2017-09-29] MEDS ORDERED: ONDANSETRON 4MG/2ML VIAL (J2405) IV (09:30)
== END 2017-09-29 10:16 | disposition home or self-care (01) ==
LOC: M SDC 06:08
DX: G57.81 Other specified mononeuropathies of right lower limb (principal); I11.9 Hypertensive heart disease without heart failure; E78.5 Hyperlipidemia, unspecified; K21.9 Gastro-esophageal reflux disease without esophagitis; D50.9 Iron deficiency anemia, unspecified; I25.10 Atherosclerotic heart disease of native coronary artery without angina pectoris; I25.2 Old myocardial infarction; G43.709 Chronic migraine without aura, not intractable, without status migrainosus; G47.9 Sleep disorder, unspecified; F41.9 Anxiety disorder, unspecified; F32.9 Major depressive disorder, single episode, unspecified; G90.4 Autonomic dysreflexia; M21.371 Foot drop, right foot; M21.372 Foot drop, left foot; G56.03 Carpal tunnel syndrome, bilateral upper limbs; M47.12 Other spondylosis with myelopathy, cervical region; G89.21 Chronic pain due to trauma; M47.896 Other spondylosis, lumbar region; G64 Other disorders of peripheral nervous system; M46.1 Sacroiliitis, not elsewhere classified; Z88.5 Allergy status to narcotic agent; Z88.6 Allergy status to analgesic agent; Z79.899 Other long term (current) drug therapy; Z98.84 Bariatric surgery status; Z87.820 Personal history of traumatic brain injury; Z98.1 Arthrodesis status; Z86.14 Personal history of Methicillin resistant Staphylococcus aureus infection; Z95.5 Presence of coronary angioplasty implant and graft
CPT/HCPCS: 64708

== ENCOUNTER → 2017-10-26 | Outpatient (CLI) | payer OTHER | LOC: M PAIN 09:45 | DX: M96.1 Postlaminectomy syndrome, not elsewhere classified (principal); G89.21 Chronic pain due to trauma; I10 Essential (primary) hypertension; E78.00 Pure hypercholesterolemia, unspecified; K21.9 Gastro-esophageal reflux disease without esophagitis; D50.9 Iron deficiency anemia, unspecified; I25.2 Old myocardial infarction; Z79.899 Other long term (current) drug therapy; Z88.5 Allergy status to narcotic agent; Z98.84 Bariatric surgery status; Z87.820 Personal history of traumatic brain injury; Z86.79 Personal history of other diseases of the circulatory system | CPT/HCPCS: G0463 ==

== ENCOUNTER → 2017-11-02 | Outpatient (REF) | payer OTHER ==
[2017-11-02 11:09] LABS: GLUCOSE,RANDOM 93 MG/DL (LESS THAN 200)
== END ==
LOC: M LABNEURO 10:32
DX: E16.2 Hypoglycemia, unspecified (principal)

== ENCOUNTER → 2017-12-28 | Outpatient (CLI) | payer OTHER | LOC: M PAIN 09:00 | DX: M96.1 Postlaminectomy syndrome, not elsewhere classified (principal); I10 Essential (primary) hypertension; M54.2 Cervicalgia; E78.00 Pure hypercholesterolemia, unspecified; K21.9 Gastro-esophageal reflux disease without esophagitis; D50.9 Iron deficiency anemia, unspecified; I25.10 Atherosclerotic heart disease of native coronary artery without angina pectoris; I25.2 Old myocardial infarction; Z98.84 Bariatric surgery status; Z98.1 Arthrodesis status; Z79.891 Long term (current) use of opiate analgesic; Z79.899 Other long term (current) drug therapy; Z88.5 Allergy status to narcotic agent | CPT/HCPCS: G0463 ==

== ENCOUNTER → 2018-08-10 | Outpatient (REF) | payer OTHER ==
[~2018-08-10] MED LIST changes: +ASPI1TAB PO; -ASPI325T24 PO; +ASPI325T25 PO; -GABA-282 PO; +GABA-843 PO; -LINE600T PO; +LINE600T11 PO; -PANT40TA2 PO; +PANT40TA3 PO; -PROC10TA PO; +PROC10TA4 PO; +TIZA2CAP PO; -TIZA2CAP3 PO
[2018-08-10 12:41] LABS: HEMATOCRIT 48.7 % (42.0-52.0); HEMOGLOBIN 16.6 g/dl (13.5-17.5); MEAN CORPUSCULAR HEMOGLOBIN 30.1 pg (27.0-33.0); MEAN CORPUSCULAR HGB CONC 34.1 g/dl (32.0-36.5); MEAN CORPUSCULAR VOLUME 88.4 fl (80.0-96.0); PLATELET COUNT, AUTOMATED 226 10^3/uL (150-450); RED BLOOD COUNT 5.51 10^6/uL (4.30-6.10); WHITE BLOOD COUNT 6.6 10^3/uL (4.0-10.0)
[2018-08-10 12:56] LABS: ALT/SGPT 41 U/L (12-78); BILIRUBIN,TOTAL 0.5 MG/DL (0.2-1.0); BLOOD UREA NITROGEN 6 MG/DL (7-18); CALCIUM LEVEL 8.9 MG/DL (8.5-10.1); CARBON DIOXIDE LEVEL 28 MEQ/L (21-32); CHLORIDE LEVEL 103 MEQ/L (98-107); CHOLESTEROL LEVEL 105 MG/DL (<200); CREATININE FOR GFR 1.14 MG/DL (0.70-1.30); FERRITIN 19 NG/ML (26-388); FREE T4 1.27 NG/DL (0.76-1.46); GLOMERULAR FILTRATION RATE > 60.0 (>56); GLUCOSE, FASTING 94 MG/DL (70-100); HDL CHOLESTEROL 50 MG/DL (>40); IRON (FE) 116 UG/DL (65-175); LDL CHOLESTEROL 41 MG/DL (<100); NON-HDL-C 55 MG/DL; PERCENT SATURATION 34.1 % (19.7-50.0); POTASSIUM SERUM 4.6 MEQ/L (3.5-5.1); SODIUM LEVEL 138 MEQ/L (136-145); TOTAL 25(OH) VITAMIN D 18.1 NG/ML (30.0-100.0); TOTAL IRON BINDING CAPACITY 340 UG/DL (250-450); TOTAL PROTEIN 6.8 GM/DL (6.4-8.2); TRIGLYCERIDES LEVEL 68 MG/DL (<150); VITAMIN B12 LEVEL 1097 PG/ML (247-911)
== END ==
LOC: M SFHCADAM 08:40
PROVIDERS: ATTEND Family Medicine
DX: F43.21 Adjustment disorder with depressed mood (principal); D50.9 Iron deficiency anemia, unspecified; E55.9 Vitamin D deficiency, unspecified; I11.9 Hypertensive heart disease without heart failure; E78.5 Hyperlipidemia, unspecified; Z98.84 Bariatric surgery status

== ENCOUNTER 2018-08-19 13:21 | Inpatient (IN) | payer OTHER ==
[~2018-08-19] VITALS: Ht 172.7 cm; Wt 100.4 kg
[2018-08-19] MEDS ORDERED: FLUO20CA19 PO (13:44)
[2018-08-19] MEDS ORDERED: NS 500 ML IV ONE ×2 (13:45→16:15)
[2018-08-19 13:57] LABS: BASO # 0.1 10^3/uL (0.0-0.2); BASO % 0.9 % (0.0-1.0); EOS # 0.1 10^3/uL (0.0-0.50); EOS % 2.1 % (0.0-3.0); HEMATOCRIT 45.2 % (42.0-52.0); HEMOGLOBIN 15.6 g/dl (13.5-17.5); LYMPH # 1.6 10^3/uL (1.5-4.5); LYMPH % 24.2 % (24.0-44.0); MEAN CORPUSCULAR HEMOGLOBIN 29.4 pg (27.0-33.0); MEAN CORPUSCULAR HGB CONC 34.5 g/dl (32.0-36.5); MEAN CORPUSCULAR VOLUME 85.1 fl (80.0-96.0); MONO # 0.5 10^3/uL (0.0-0.8); MONO % 8.1 % (0.0-5.0); NEUTROPHILS # 4.3 10^3/uL (1.8-7.7); NEUTROPHILS % 64.6 % (36.0-66.0); PLATELET COUNT, AUTOMATED 186 10^3/uL (150-450); RED BLOOD COUNT 5.31 10^6/uL (4.30-6.10); WHITE BLOOD COUNT 6.7 10^3/uL (4.0-10.0)
--- NOTE | 2018-08-19 14:16 | REP ---
CT Head without contrast HISTORY: Fall COMPARISON: 05/19/2017 There is no intraparenchymal hemorrhage, acute infarct, mass or midline shift. The ventricular system is normal in appearance. There is no extra cerebral collection. There is no fracture. The visualized sinuses are clear. IMPRESSION: There is no intracranial lesion. Electronically Signed by Brad Carter MD 08/19/2018 02:08 P
[2018-08-19 14:32] LABS: ALBUMIN 3.7 GM/DL (3.2-5.2); ALT/SGPT 32 U/L (12-78); BILIRUBIN,DIRECT 0.2 MG/DL (0.0-0.2); BILIRUBIN,TOTAL 0.8 MG/DL (0.2-1.0); BLOOD UREA NITROGEN 7 MG/DL (7-18); CALCIUM LEVEL 8.6 MG/DL (8.5-10.1); CARBON DIOXIDE LEVEL 26 MEQ/L (21-32); CHLORIDE LEVEL 102 MEQ/L (98-107); CPK CREATINE PHOSPHOKINASE 98 U/L (39-308); CREATININE FOR GFR 1.16 MG/DL (0.70-1.30); FREE T4 1.35 NG/DL (0.76-1.46); GLOMERULAR FILTRATION RATE > 60.0 (>56); GLUCOSE, FASTING 107 MG/DL (70-100); LIPASE 126 U/L (73-393); MB/CK RELATIVE INDEX 2.35 (< OR =4); POTASSIUM SERUM 3.9 MEQ/L (3.5-5.1); SODIUM LEVEL 137 MEQ/L (136-145); TOTAL PROTEIN 6.7 GM/DL (6.4-8.2); TROPONIN I < 0.02 NG/ML (< 0.10)
--- NOTE | 2018-08-19 14:39 | REP ---
CT cervical spine without contrast HISTORY: Fall COMPARISON: 05/19/2017 The patient is status post C3-6 anterior spinal fusion. A fixation plate and bone graft material are present. There is no acute fracture or subluxation. Posterior osteophytes are present at the C3-4 through C6-7 levels. There is minimal narrowing of the spinal canal. Uncinate process hypertrophy is present at the C3-4 and C5-6 levels. There is minimal narrowing of the neural foramina. The remaining neural foramina are patent. The C6-7 intervertebral disc is decreased in height consistent with disc degeneration. IMPRESSION: 1. There is no acute fracture or subluxation. 2. The patient is status post C3-C6 anterior spinal fusion. There is anatomic alignment. Electronically Signed by Brad Carter MD 08/19/2018 02:30 P
[2018-08-19] MEDS ORDERED: PANT40TA3 PO (14:40)
[2018-08-19] MEDS ORDERED: GABA600T4 PO (14:40)
[2018-08-19 14:45] LABS: INR 1.09; PROTHROMBIN TIME 14.2 SECONDS (12.1-14.4)
[2018-08-19] MEDS ORDERED: MORPHINE 2 MG/ML 1ML SYRINGE (J2270) IV ONE (14:45)
--- NOTE | 2018-08-19 14:46 | REP ---
Chest one-view HISTORY: Syncope Comparison: 09/08/2017 The lungs are clear. The heart is normal in size. The pulmonary vasculature is normal in appearance. Impression: No acute disease. Electronically Signed by Brad Carter MD 08/19/2018 02:37 P
[2018-08-19] MEDS ORDERED: ISOVUE-370 76% 100ML VIAL (Q9967) As Ordered ONE (15:13)
--- NOTE | 2018-08-19 16:14 | REP ---
CT pulmonary angiogram: With IV contrast. History: Chest pain Comparison studies: April 13, 2007. Contrast dose: 75 cc's of Isovue [address] technique: Helical scanning is acquired and overlapping 1.5 mm and contiguous 3 mm axial images are reformatted. In addition, maximum intensity projection and multiplanar re-formation images are generated in sagittal and coronal imaging projections. CT pulmonary angiographic findings: There is good opacification in the pulmonary arterial tree. There is no CT evidence of pulmonary embolus. Maximum intensity projection images show no vessel cutoff or filling defect. The thoracic aorta enhances homogeneously. There is no evidence of aneurysm or dissection. No hilar or mediastinal mass or adenopathy is observed. No pleural or pericardial effusion is seen. There is mild linear discoid atelectasis or fibrosis in the lingula. No pulmonary nodule or mass lesion is observed. No bony destructive lesion is seen. The patient is status post lower cervical discectomy and fusion plating. There is a small myelolipoma or lipoma of the left adrenal gland 1.1 cm in greatest diameter. This is benign. An accessory splenule is noted in the left upper quadrant. There is a 2.1 cm low density area in the edge of the left lobe of the liver in the epigastric region on today's CT study. This may be a small liver cyst. Impression: No CT evidence of pulmonary embolus. No active disease in the chest. A 2.1 cm left lobe lesion, possible liver cyst. Status post gastric bypass. Otherwise no active disease. Electronically Signed by Usama Shrestha MD 08/19/2018 08:01 P
[2018-08-19] MEDS ORDERED: NS 1,000 ML IV ONE (16:15)
--- NOTE | 2018-08-19 17:08 | REP ---
CT abdomen and pelvis with IV contrast: History: Chest pain. History of gastric bypass. CT contrast given for during CT angiogram done approximately [address] findings: Preliminary digital cabinetmaker apprentice radiograph is unremarkable. The lung bases are essentially clear. The liver and the spleen are normal in size and homogeneous in texture. There is a small accessory splenule. There is a small 1.1 cm benign fat-containing left adrenal nodule consistent with lipoma versus myelolipoma. The gallbladder is unremarkable. No pancreatic lesion is seen. The kidneys enhance symmetrically. There is a 3.5 cm lesion projecting from the lower pole of the left kidney which may be a cyst. However, its interior shows somewhat increased attenuation for a simple cyst. It may have proteinaceous content. This was not present at the time of the April 13, [address] study. No other renal lesion is seen. Renal sonography is recommended. No filling defect is observed in the collecting systems, which are opacified. Ureters describe a normal course to the bladder. Urinary bladder shows mild diffuse bladder wall thickening, but no filling defect. There are one or two prostate calcifications. No abdominal wall defect is observed. The patient is status post gastric bypass surgery. The appendix is not directly visualized but there is no inflammatory change in the right lower quadrant adjacent to the cecum to suggest appendicitis. No obstructive gastrointestinal lesion is seen. Impression: 3.5 cm proteinaceous cyst versus mass lower pole left kidney. The patient is status post gastric bypass procedure. No other acute intra-abdominal abnormality. Suggest renal sonography for further evaluation of the left renal lesion. Electronically Signed by Usama Shrestha MD 08/19/2018 08:03 P
[2018-08-19] MEDS ORDERED: ATROPINE SULF 1MG/10ML SYRINGE (J0461) As Ordered ONE (17:14)
[2018-08-19] MEDS ORDERED: ATROPINE SULF 1MG/10ML SYRINGE (J0461) IV STA (17:25)
[2018-08-19 17:43] LABS: MB/CK RELATIVE INDEX 1.34 (< OR =4); TROPONIN I 0.02 NG/ML (< 0.10)
[2018-08-19] MEDS ORDERED: NS 1,000 ML IV SCH (19:35)
[2018-08-19] MEDS ORDERED: PROCHLORPERAZINE 5 MG TAB (S0183) PO PRN (19:45)
[2018-08-19] MEDS ORDERED: DOCUSATE SODIUM 100 MG CAP PO PRN (19:45)
[2018-08-19] MEDS: GABAPENTIN 300 MG CAP PO SCH (20:08)
[2018-08-19] MEDS: MIRTAZAPINE 15 MG TAB PO SCH (20:08)
[2018-08-19] MEDS: FERROUS SULFATE 325MG TAB PO SCH (20:08)
[2018-08-19 20:25] LABS: MB/CK RELATIVE INDEX 1.06 (< OR =4); TROPONIN I 0.03 NG/ML (< 0.10)
[2018-08-19] MEDS ORDERED: ATROPINE SULF 1MG/10ML SYRINGE (J0461) IV PRN (20:30)
[2018-08-19 20:57] VITALS: BP 157/78; PULSE 47
[2018-08-19] MEDS: LR 1,000 ML IV SCH (21:00)
[2018-08-19] MEDS ORDERED: FLUBLOK(EGG FREE)(QUAD)INFLUENZA VACC 0.5ML SYRINGE (90682)18YRS&OLDER IM PRN (21:30)
[2018-08-19] MEDS ORDERED: NITROGLYCERIN 0.4 MG SUBL TABLET SL PRN (21:30)
[2018-08-19 21:31] VITALS: BP 157/78
[2018-08-19] MEDS: ACETAMINOPHEN TAB 650MG DOSE (2X325MG) PO PRN (21:49)
--- NOTE | 2018-08-19 22:16 | HPE ---
DATE OF ADMISSION: 08/19/2018 This is a 52-year-old male with past medical history of coronary artery disease, status post myocardial infarction (CO), history of hypertension, hyperlipidemia, presents to the emergency room with a syncopal event. Patient apparently was at a bank when he was with the [place] he started feeling flushed and he collapsed when inside the bank. Upon brought into the ER, he was awake, alert and oriented times three, though he was noted to be bradycardic with a rate of 30s. 12-lead EKG showed he was in sinus bradycardia. 2.5 atropine was given IV push by the ER attending, which brought his rate up to the 60s, but then he dropped again down to the 40s. Right now he is between 45 and [address] Henning was made aware. He was consulted by the ER doctor and we are going to place him on nothing by mouth (npo) status and possible pacemaker placement in the morning. Patient at this time, is symptomatic. He does have mild vertigo, though he has no chest pain, no shortness of breath. He will be admitted to the ICU for further management. PAST MEDICAL HISTORY: Coronary artery disease, status post myocardial infarction (CO). History of gastroesophageal reflux disease (GERD). Hypertension. Hyperlipidemia. He has had gastric bypass surgery. History of iron deficiency anemia. PAST SURGICAL HISTORY: Gastric bypass surgery 15 years ago at [facility]. History of cervical fusion. Occipital nerve block. History of cardiac cath with stent. ALLERGIES: TRAMADOL and NSAIDS. FAMILY HISTORY: Noncontributory. SOCIAL HISTORY: Patient was a former smoker. Quit many years ago. Denies alcohol or illicit drugs. MEDICATIONS HE TAKES AT HOME: Are as follows: - Tylenol 500 mg orally daily - aspirin 81 mg orally daily - atorvastatin 80 mg orally daily - cyanocobalamin 1000 mg orally daily - Colace 100 mg orally twice daily - ferrous sulfate 325 mg orally twice daily - fluoxetine 20 mg orally daily - gabapentin 600 mg orally three times daily - lisinopril 20 mg orally daily - mirtazapine 15 mg orally at bedtime - pantoprazole 40 mg orally daily - Prochlorpemazine 10 mg orally three times a day as needed REVIEW OF SYSTEMS: Negative all ten major systems except what is mentioned in HPI. VITAL SIGNS: Blood pressure is 147/92, heart rate is 49 and regular. Respiratory rate is 16. Temperature is 99.1. Oxygen saturation is 97% on room air. Head: Atraumatic. Normocephalic. Neck: Supple. No jugular venous distention (JVD). Lungs: Clear to auscultation. S1, S2 audible. No murmurs appreciated. Abdomen: Soft, positive bowel sounds. No pedal edema. Skin: Intact. Neurological examination: Patient awake, alert and oriented times three. LABS: WBC 6.7, hemoglobin 15.6, hematocrit 45.2, platelets are 186,000. Sodium 137, potassium 3.9. Chloride 102, CO2 26, BUN 7, creatinine 1.16. Glucose is 107. Troponin times two is less than 0.02 and 0.02. TSH is 2.89. 12-lead EKG shows sinus bradycardia with no acute ST-T abnormalities. IMPRESSION: Symptomatic bradycardia. PLAN: Patient is to be admitted to the ICU. Will keep atropine at bedside and have pacer pads on him in case he should decompensate overnight. Dr. Henning will be on board and patient will be kept nothing by mouth for possible pacemaker placement. Will continue all of his pre-admission medications except for is aspirin and continue his care in the ICU. Total critical care time: 30 minutes.
[2018-08-19] MEDS: ATROPINE SULF 0.4 MG/ML 1ML VIAL (J0461) IV PRN (22:25)
[2018-08-20] VITALS (8 sets, daily range): BP systolic 134–164; BP diastolic 81–98; PULSE 53
[2018-08-20 04:45] LABS: BASO % 0.6 % (0.0-1.0); EOS # 0.2 10^3/uL (0.0-0.50); EOS % 3.5 % (0.0-3.0); HEMATOCRIT 42.9 % (42.0-52.0); HEMOGLOBIN 14.5 g/dl (13.5-17.5); LYMPH % 28.7 % (24.0-44.0); MEAN CORPUSCULAR HEMOGLOBIN 29.5 pg (27.0-33.0); MEAN CORPUSCULAR HGB CONC 33.8 g/dl (32.0-36.5); MEAN CORPUSCULAR VOLUME 87.4 fl (80.0-96.0); MONO # 0.5 10^3/uL (0.0-0.8); MONO % 7.3 % (0.0-5.0); NEUTROPHILS # 4.1 10^3/uL (1.8-7.7); NEUTROPHILS % 59.6 % (36.0-66.0); PLATELET COUNT, AUTOMATED 170 10^3/uL (150-450); RED BLOOD COUNT 4.91 10^6/uL (4.30-6.10); WHITE BLOOD COUNT 6.9 10^3/uL (4.0-10.0)
[2018-08-20 04:54] LABS: BLOOD UREA NITROGEN 6 MG/DL (7-18); CALCIUM LEVEL 8.1 MG/DL (8.5-10.1); CARBON DIOXIDE LEVEL 26 MEQ/L (21-32); CHLORIDE LEVEL 106 MEQ/L (98-107); CREATININE FOR GFR 0.97 MG/DL (0.70-1.30); GLOMERULAR FILTRATION RATE > 60.0 (>56); GLUCOSE, FASTING 82 MG/DL (70-100); POTASSIUM SERUM 3.9 MEQ/L (3.5-5.1); SODIUM LEVEL 140 MEQ/L (136-145)
[2018-08-20] MEDS ORDERED: VANCOMYCIN HCL 1,000 MG, VIAL MATE ADAPTER 1 EACH in D5W 250 ML IV SCH (06:00)
[2018-08-20] MEDS: ATROPINE SULF 0.4 MG/ML 1ML VIAL (J0461) IV PRN (06:17)
[2018-08-20] MEDS: LISINOPRIL 20 MG TAB PO SCH (08:46)
[2018-08-20] MEDS: FERROUS SULFATE 325MG TAB PO SCH ×2 (08:46→20:38)
[2018-08-20] MEDS: FLUoxetine 20 MG CAP PO SCH (08:46)
[2018-08-20] MEDS: PANTOPRAZOLE 40MG TAB (PROTONIX) PO SCH (08:46)
[2018-08-20] MEDS: GABAPENTIN 300 MG CAP PO SCH ×3 (08:47→20:38)
[2018-08-20] MEDS: CYANOCOBALAMIN 500 MCG TAB PO SCH (08:47)
[2018-08-20] MEDS: ATORVASTATIN 20 MG TAB PO SCH (08:49)
[2018-08-20] MEDS: LR 1,000 ML IV SCH (08:50)
--- NOTE | 2018-08-20 08:58 | CR ---
DATE OF CONSULTATION: 08/19/2018 REFERRING PHYSICIAN: Dr. Nakita Bryant. REASON FOR CONSULTATION: Syncope, sick sinus syndrome. HISTORY OF PRESENT ILLNESS: Mr. Dayton Noland is a pleasant 52-year-old man with a history of coronary heart disease status-post myocardial infarct 1992 with subsequent coronary stenting. He is noted to have systemic hypertension, hypercholesterolemia, and obesity. He is status-post jordyn-en-Y gastric bypass surgery for about the past 2 years he has been noted to have a slow heart rate and has been followed for this by Dr. 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 He fell on his buttocks injuring his buttocks. He was unconscious for a brief period of time and had rapid return of sensorium. There was no nausea, vomiting, or palpitations proceeding or immediately following this episode of loss of consciousness. No identifiable triggers. This was his first and only episode of syncope. No history of heart failure. In the emergency room, he as noted to have marked sinus bradycardia and while under observation in the emergency room his heart rate went into severe sinus bradycardia at 30 beats per minute for which he was symptomatic with lightheadedness in the stretcher. He was subsequently given Atropine in the emergency room. Patient is not bothered by any pain, pressure, tightness, squeezing or heaviness with overhead exertion. No exertional dyspnea. No orthopnea or PND. No regular ankle swelling. No palpitations. No embolic events. No intermittent claudication. ADVERSE DRUG REACTIONS: Tramadol, NSAIDS. MEDICATIONS PRIOR TO ADMISSION: Vitamin C 500 mg daily, aspirin 81 mg daily (held), atorvastatin 8 0mg daily, vitamin B12 1000 mcg daily, Colace 100 mg twice a day as needed for constipation, ferrous sulfate 325 mg twice a day, Fluoxetine 20 mg daily, gabapentin 600 mg three times a day, lisinopril 20 mg daily, mirtazapine 15 mg at bedtime, pantoprazole 40 mg daily, prochlorperazine 10 mg three times a day as needed for nausea. CURRENT MEDICATIONS IN HOSPITAL: Atorvastatin 80 mg daily, vitamin B12 1000 mcg daily, fluoxetine 20 mg daily, lisinopril 20 mg daily, Protonix 40 mg daily, ferrous sulfate 325 mg twice a day, gabapentin 600 mg three times a day, mirtazapine 15 mg at bedtime, atropine 0.5 mg IV every 30 minutes as needed for bradycardia, Colace 100 mg twice a day as needed for constipation, prochlorperazine 10 mg three times a day as needed for nausea. OTHER PAST MEDICAL AND SURGICAL HISTORY: Tinnitus. Bilateral hearing loss, herniated disc neck with numbness in the extremities, decreased memory, stroke 10/02/2014. C3-4, 5, 6 discectomies with fusion 05/2016, migraines following head injury 05/09/2016, heart attack 1992, percutaneous coronary intervention with coronary stenting 1992, hypercholesterolemia, systemic hypertension, obesity status-post jordyn-en-Y gastric bypass surgery. Prior cigar smoker, asthma during childhood. Prior sleep apnea resolved following gastric bypass surgery with weight loss. Difficulty swallowing following cervical surgery, GERD, chronic pancreatitis, colonic polyps. Gastric bypass surgery 2005, chronic constipation, arthritis back and neck, sciatica, back pain, depression, anxiety, iron deficiency anemia, prior history of cellulitis in left leg, difficulty sleeping, history of left scalp methicillin resistant staphylococcus aureus. FAMILY HISTORY: Father of heart attack at age 65. Mother systemic hypertension. SOCIAL HISTORY: Disabled secondary to chronic neck pain. Lives alone. Nonsmoker. No alcohol. REVIEW OF SYSTEMS: Tinnitus, decreased hearing, decreased memory, migraine headaches, chronic back pain, chronic neck pain, difficulty swallowing, constipation, GERD, depression, anxiety, anemia, difficulty sleeping, all other 10 point review of systems is negative. PHYSICAL EXAMINATION: Pleasant man who appears his chronologic age. Not in any respiratory or psychologic distress. Height and weight for the current admission are not presently listed in the chart. Temperature 99.1, pulse 47 (regular), respiratory rate 18, blood pressure 155/95, Oxygen saturation 97% on room air. No gross head, facial or skeletal deformities. No conjunctiva pallor, sclera, icterus or xanthomatous. Teeth were in fairly good condition. Oral mucosa is moist without pallor or stenosis. Jugular venous pulsations were at 3 cm. Trachea is midline. No palpable thyroid. No skin lesions, skin pallor or icterus. Tattoo is present. Tattoo is present. Oriented to person, placed and time. No curvature of the spine. Gait not appropriate to test at this time as patient is on bedrest because of syncope and severe bradycardia. Gross motor strength and tone normal. No abnormal tremors. Respiratory expansion effort is good. No crackles or wheezes. No dullness to percussion. No palpable apex beat. First and second heart sounds normal. No S3 or S4 or murmurs. Carotid is normal in contour and without wheeze. No palpable abdominal aorta. No abdominal wheeze. Femoral pulses are normal. Pedal pulse is normal. No peripheral edema. No varicose veins. Abdomen was obese, soft and nontender with normal bowel sounds. No hepatomegaly or organomegaly. Difficult to assess due to abdominal obesity. Stool for occult blood not presently indicated. INVESTIGATIONS: I have independently visualized the patient's portable chest x-ray 08/19/2018, it appeared to be a normal portable chest x-ray. No pulmonary vascular redistribution. No interstitial or alveolar. Difficult to asses cardiac size due to AP portable technique. No pneumothorax. Electrocardiogram 08/19/2018 at 1709 hours shows marked sinus bradycardia 39 beats per minute, moderate intraventricular conduction delay, otherwise within normal limits. LABORATORY WORK: 08/19/2018 at 1340 hours: Sodium 137, potassium 3.9, chloride 102, CO2 26, BUN 7, creatinine 1.16, estimated GFR greater than 60, glucose 107, calcium 8.6, troponin I less than 0.02, total protein 6.7, albumin 3.7, TSH 2.890, Free T4 1.35, PT/INR 1.09, WBC 6.7, hemoglobin 15.6, hematocrit 45.2, platelets 186. ASSESSMENT AND RECOMMENDATIONS: 1. Sick sinus syndrome. Patient had an episode of syncope today without any participating factors and he has been observed to have severe sinus bradycardia down to 30 beats per minute in the emergency room. In the emergency room he had an episode of severe sinus bradycardia down to 30 beats per minute for which he was symptomatic with. Light headiness and had to receive atropine. He qualifies for implantation of a permanent dual chamber pace maker. Implantation of dual chamber pacemaker was explained to the patient. Risks explained to the patient including but not all inclusive: Pneumothorax (1%), infection (1%), bleeding, adverse drug reaction, poor wound healing, lead dislodgement, cardiac dysrhythmias, cardiac perforation with cardiac tamponade (3-1000). Patient is agreeable and wished to proceed with implantation of permanent pacemaker and signed the consent form. The plan is to proceed with implantation of a Biotronic dual-chamber pacemaker tomorrow when the OR become available. 2. Syncope. Syncope is secondary to sick sinus syndrome. As described above he will undergo implantation of a permanent dual-chamber pacemaker tomorrow. 3. Coronary artery disease (without angina). History of myocardial infarction in 1992 with subsequent coronary stenting. Patient remains angina free. He was taking aspirin prior to hospitalization but this had been on hold for now aspirin will be on hold while he await pace maker implant. He is on Lisinopril which will continue. He is also on atorvastatin 80 mg daily which we will continue. 4. Status post percutaneous coronary intervention as per category above. 5. Old myocardial infarct as per CAD isra above. 6. Hypercholesterolemia. Continue atorvastatin 80 mg daily. Recommend a low fat, whole food, plant based diet. 7. Systemic hypertension. Variable blood pressure reading observed so far in hospital. Will continue to observe for now. Continue Lisinopril at the current dosage.
[2018-08-20] MEDS ORDERED: LIDOCAINE 1% SDV INJ 30 ML VIAL As Ordered ONE (09:19)
[2018-08-20] MEDS ORDERED: ISOVUE-300 61% 50ML VIAL (Q9967) As Ordered ONE (09:19)
[2018-08-20] MEDS ORDERED: fentaNYL 100 MCG/2 ML INJECTION (J3010) As Ordered ONE (09:34)
[2018-08-20] MEDS ORDERED: MIDAZOLAM INJ 2 MG/2 ML VIAL (J2250) As Ordered ONE (09:34)
[2018-08-20] MEDS ORDERED: ONDANSETRON 4MG/2ML VIAL (J2405) As Ordered ONE (09:34)
[2018-08-20] MEDS ORDERED: PROPOFOL 200 MG/20 ML VIAL As Ordered ONE ×4 (09:34→12:07)
[2018-08-20] MEDS ORDERED: LIDOCAINE 2% INJ 100 MG/5 ML SDV (FOR ANES.) As Ordered ONE (09:49)
[2018-08-20] MEDS ORDERED: ePHEDrine SULFATE 25 MG/5 ML(5MG/ML) SYRINGE As Ordered ONE (10:40)
[2018-08-20] MEDS ORDERED: BACITRACIN OINT 30GM As Ordered ONE (11:47)
[2018-08-20] MEDS ORDERED: LR 1,000 ML IV SCH (12:45)
[2018-08-20] MEDS ORDERED: METOCLOPRAMIDE INJ 10MG/2ML VIAL (J2765) IV PRN (12:45)
[2018-08-20] MEDS ORDERED: MEPERIDINE INJ 25 MG/ML VIAL (J2175) IV PRN (12:45)
[2018-08-20] MEDS ORDERED: PERCOCET 5MG/325MG TAB PO PRN (12:45)
[2018-08-20] MEDS ORDERED: ONDANSETRON 4MG/2ML VIAL (J2405) IV PRN (12:45)
--- NOTE | 2018-08-20 13:42 | REP ---
AP PORTABLE CHEST: 08/20/2018. Comparison: 08/19/2018 AP portable chest. Clinical history: Status post pacemaker insertion. Findings: Fadumo overlie the battery unit for a dual lead pacemaker with leads in the right atrium and right ventricle. Better level of inflation with heart size normal. No vascular redistribution or pulmonary edema. Some minor linear fibrotic changes in the bases. No effusion or pneumothorax on the left. No right effusion. Airway intact. Multiple screws and a plate from prior cervical discectomy and fusion. Impression: 1. Dual lead pacer over the left upper chest with leads in the right atrium and right ventricle. No left-sided pneumothorax or effusion. Heart not enlarged. No edema. 2. Better level of inflation. No definite infiltrate. Basilar linear fibrotic or atelectatic change. Electronically Signed by Virgilio Murcia MD 08/20/2018 02:07 P
--- NOTE | 2018-08-20 13:43 | REP ---
PACEMAKER FLUOROSCOPY: 08/20/2018. Clinical history: Dual chamber pacer. Images from C-arm fluoroscopy provided to Dr. Henning of the cardiology division for pacemaker insertion. Findings: Battery unit over the left upper chest and the two leads are seen, one in the right atrium, the other in the right ventricle. Fluoroscopy time: 8 minutes 43 seconds. Electronically Signed by Virgilio Murcia MD 08/20/2018 02:07 P
--- NOTE | 2018-08-20 14:27 | ECGEPIP ---
Stationary ECG Study [facility] Test Date: 2018-08-20 Pat Name: DENISE GILL Department: Room: [place] [address] Gender: M International Editorial Producer: : 1965 Requested By: Rehan Henning Order Number: [id number] Reading MD: Rehan Goyal Measurements Intervals [place] Rate: 60 P: 122 W[place]: 148 QRS: -72 QRSD: 155 T: 73 QT: 444 QTc: 444 Interpretive Statements ELECTRONIC ATRIAL PACEMAKER ELECTRONIC VENTRICULAR PACEMAKER Previous tracing showed sinus bradycardia without pacer Electronically Signed On 08-20-2018 14:27:24 EST by Rehan Goyal
[2018-08-20] MEDS ORDERED: SLF 3 ML SYR IV PRN (15:15)
[2018-08-20] MEDS: ACETAMINOPHEN TAB 650MG DOSE (2X325MG) PO PRN (16:54)
[2018-08-20] MEDS: ASCORBIC ACID 250 MG TAB PO SCH ×2 (16:54→20:38)
[2018-08-20] MEDS: MIRTAZAPINE 15 MG TAB PO SCH (20:38)
[2018-08-20] MEDS: SLF 3 ML SYR IV SCH (20:39)
[2018-08-21] VITALS: BP 143/90
[2018-08-21 04:07] VITALS: BP 135/84
[2018-08-21] MEDS: ACETAMINOPHEN TAB 650MG DOSE (2X325MG) PO PRN ×2 (04:14→10:58)
[2018-08-21] MEDS: SLF 3 ML SYR IV SCH ×2 (04:14→14:00)
--- NOTE | 2018-08-21 06:45 | ECGEPIP ---
Stationary ECG Study [facility] - ED Test Date: 2018-08-19 Pat Name: DENISE GILL Department: Room: - Gender: M Chief Architect: : 1965 Requested By: CHELY OROPEZA Order Number: [id number] Reading MD: Adelia Pizano Measurements Intervals [place] Rate: 48 P: 51 [place]: 158 QRS: -15 QRSD: 125 T: 41 QT: 424 QTc: 379 Interpretive Statements SINUS BRADYCARDIA MODERATE INTRAVENTRICULAR CONDUCTION DELAY CW 08/20/18 NO PACER SPIKES SEEN RATE LOWER Electronically Signed On 08-21-2018 6:45:01 EST by Adelia Pizano
--- NOTE | 2018-08-21 06:50 | ECGEPIP ---
Stationary ECG Study [facility] - ED Test Date: 2018-08-19 Pat Name: DENISE GILL Department: Room: [place] [address] Gender: M Education Administrator: RENATA : 1965 Requested By: CHELY OROPEZA Order Number: [id number] Reading MD: Adelia Pizano Measurements Intervals [place] Rate: 39 P: 47 [place]: 166 QRS: -16 QRSD: 113 T: 30 QT: 471 QTc: 382 Interpretive Statements SINUS BRADYCARDIA MODERATE INTRAVENTRICULAR CONDUCTION DELAY CW 08/20/18 RATE DECREASED NO PACER ACTIVITY NONSPECIFIC ST T WAVE CHANGES Electronically Signed On 08-21-2018 6:50:26 EST by Adelia Pizano
--- NOTE | 2018-08-21 07:05 | RO ---
DATE OF PROCEDURE: 08/20/2018 PREOPERATIVE DIAGNOSIS: Sick sinus syndrome. POSTOPERATIVE DIAGNOSIS: Sick sinus syndrome. PROCEDURE PERFORMED: Implantation of a Biotronik dual chamber pacemaker. SURGEON: Rehan Henning MD WEB MARKETING ANALYST: None. ANESTHESIA: Lidocaine 1% local, monitored anesthetic care. SPECIMENS: None. ESTIMATED BLOOD LOSS: Less than 10 mL, no blood products replaced, no drains, no complications. PROCEDURE DESCRIPTION: The patient was prepped and draped over the left pectoral region. 3M Ioban film was applied. Lidocaine 1% was used for local anesthetic. A left subclavian venogram was performed injecting a total volume of 20 mL of a mixture in a 2:1 ratio of contrast to injectable normal saline via a peripheral vein in the left forearm. This was used to help localize the location of the left subclavian vein. Even with the venogram, venous access was difficult and ultimately I was able to get into the left subclavian vein using a micropuncture needle. This was then guidewire exchanged for a guidewire that came with one of the 6 [place]er sheaths. Next an incision approximately 2.5 inches in length was made 1 cm below the skin entry site of the guidewire and approximately parallel to the left clavicle using a Peak Plasma blade. The Peak Plasma blade was used to get through the fatty layer and the fibrous José Miguel fascia. The pacemaker pocket was then formed in a caudal direction using blunt dissection using two fingers to separate the prepectoral fascia from the José Miguel fascia. Next, the guidewire was pulled through the skin into the incision site. Next, I took another micropuncture needle and entered into the pectoral muscle more lateral to the first guidewire and with fluoroscopy followed the path of the first guidewire to get a second separate venous access into the subclavian vein which was guidewire exchanged for a guidewire that came with the other 6 [place]er sheath. A 6 [place]er sheath with introducer was placed over the more lateral of the guidewires and advanced into the vein. It was used for vein access for the ventricular lead which was placed into the right ventricle apex position and secured with a total of 10 turns. No diaphragm stimulation could be felt on either side of the diaphragm at 10 volts high output pacing. It was secured with a total of 10 turns. The 6 [place]er sheath was then broken apart and removed and the ventricle lead secured to the pectoral muscle using the supplied tie down sleeve using two individual sutures consisting of #0 Ethibond secured to the pectoral muscle. Next, another 6 [place]er sheath was placed over the medial of the guidewires and advanced into the left subclavian vein. The atrial lead was placed under fluoroscopic guidance into the right atrial appendage position with the assistance of a preformed J stylet. It was secured with a total of 10 turns. This position was found to be electrically and anatomically satisfactory and no diaphragm stimulation could be palpated on either side of the diaphragm with 10 volts high open pacing. The 6 [place]er sheath was broken apart and removed and the atrial lead secured to the pectoral muscle with the supplied tie down sleeve using two individual sutures consisting of #0 Ethibond to secure it to the pectoral muscle. Another #0 Ethibond suture was then used to secure the pacemaker pulse generator by placing it into the pectoral muscle. Next, I took a medium sized TYRX antimicrobial envelope which was cut into four pieces and placed it into the pacemaker pocket. Next, the terminal pins of the ventricle and atrial leads were plugged into their respective ports in the header of the pacemaker pulse generator and each one was secured by tightening the set screws with the hex screwdriver. The excess lead material was placed underneath the pacemaker pulse generator and placed along with the pacemaker pulse generator into the pacemaker pocket with the pacemaker pulse generator on top. The pacemaker pulse generator was secured to the pectoral muscle with the previously placed #0 Ethibond suture. Next, the deep layer was closed using individual sutures consisting of #2-0 Vicryl. A few additional individual #3-0 Vicryl sutures were used to approximate the more superficial layer. The skin was then closed using marcus. The patient tolerated the procedure well without any immediate complications. The pacemaker pulse generator implanted was a Easy [employer]or[employer] retargeting Edora 8 DR-T with serial number [id number]. The right ventricle lead implanted was a Biotronik Solia S 53 with serial number [id number]. Final testing in the operating room with the pulse analyzer for the right ventricular lead showed a capture threshold of 0.5 volts at 0.4 ms with R wave amplitude of 12.9 mV and lead impedance of 682 ohms. The right atrial lead implanted was a Biotronik Solia S 45 with serial number [id number]. Final testing in the operating room for the right atrial lead with the pulse analyzer showed capture threshold of 0.6 volts at 0.4 ms with P wave amplitude of 3.6 mV and lead impedance of 448 ohms.
[2018-08-21 08:00] VITALS: BP 143/79
--- NOTE | 2018-08-21 08:11 | ECGEPIP ---
Stationary ECG Study [facility] - ED Test Date: 2018-08-19 Pat Name: DENISE GILL Department: Room: [place] [address] Gender: M Colorist Photography: : 1965 Requested By: Adelia Pizano Order Number: [id number] Reading MD: Adelia Pizano Measurements Intervals [place] Rate: 35 P: 53 [place]: 157 QRS: -3 QRSD: 113 T: 19 QT: 475 QTc: 366 Interpretive Statements SINUS BRADYCARDIA MODERATE INTRAVENTRICULAR CONDUCTION DELAY CW 08/20/18 RATE LOWER CLINICAL CORRELATION ADVISED Electronically Signed On 08-21-2018 8:11:17 EST by Adelia Pizano
[2018-08-21] MEDS: PANTOPRAZOLE 40MG TAB (PROTONIX) PO SCH (08:37)
[2018-08-21 08:38] VITALS: BP 143/79
[2018-08-21] MEDS: FERROUS SULFATE 325MG TAB PO SCH (08:38)
[2018-08-21] MEDS: FLUoxetine 20 MG CAP PO SCH (08:38)
[2018-08-21] MEDS: LISINOPRIL 20 MG TAB PO SCH (08:38)
[2018-08-21] MEDS: ASCORBIC ACID 250 MG TAB PO SCH (08:38)
[2018-08-21] MEDS: CYANOCOBALAMIN 500 MCG TAB PO SCH (08:39)
[2018-08-21] MEDS: GABAPENTIN 300 MG CAP PO SCH ×2 (08:39→15:14)
[2018-08-21] MEDS: ATORVASTATIN 20 MG TAB PO SCH (08:39)
--- NOTE | 2018-08-21 10:04 | REP ---
CHEST PA AND LATERAL: 08/21/2018. Comparison: AP portable chest 08/20/2018. Clinical history: Status post pacemaker insertion. Findings: Skin marcus and a pacer unit over the left upper chest with dual leads terminating in the right atrium and right ventricle. There is no left effusion or pneumothorax. Lung [place] are well inflated. There is no pleural effusion, lateral pleural thickening, apical scarring or pneumothorax. No dense consolidation or parenchymal mass. Some minor basilar fibrotic changes noted medially on both sides. The aorta is normal and the airway is intact. There is no widening the mediastinum. No vascular redistribution or pulmonary edema. Mild prominence of central pulmonary arteries suggesting pulmonary artery hypertension. Appearance as seen on CTA 08/19/2018. The bony thorax shows no acute compression deformity or focal lesion. Prior cervical discectomy and fusion with plate and screw fixation device again seen. There is some colonic interposition between the dome of the liver and the diaphragm on the right side as a common anatomic variant. Impression: 1. Dual lead pacer as described with no left-sided pneumothorax or effusion. 2. Some pulmonary artery hypertension, basilar fibrosis and no evidence of acute infiltrate. 3. No cardiomegaly or edema. Electronically Signed by Virgilio Murcia MD 08/21/2018 10:20 A
--- NOTE | 2018-08-21 10:37 | IPN ---
DATE: 08/20/2018 SUBJECTIVE: The patient feels well. He has only minimal discomfort in his left upper chest where the recent pacemaker was inserted. He feels better overall. He does admit that he has had episodes of feeling sweaty and somewhat lightheaded intermittently over the past year. Of course, since he is status post gastric bypass, there are several other potential etiologies including dumping syndrome, hypoglycemia, etc., which could account for the symptoms. He reports that his pulse has been relatively slow in the past, typically in the low 50s and high 40s, but never into the 30s as it had been accompanying this ER visit and admission. Vital signs currently 189/97 pressure, respiratory rate 18, pulse 61. He has a pacemaker functioning at this time. I could not find preprocedure EKG for review. Postprocedure EKG shows pacemaker functioning. CURRENT MEDICATIONS INCLUDE: - saline flush - lisinopril 20 mg daily - vitamin C 250 by mouth twice a day - pantoprazole 40 mg daily for gastroesophageal reflux disease (GERD) - Prozac 20 mg daily - vitamin B12 1000 mcg daily - atorvastatin 80 mg daily He does have a past history of coronary artery disease and stent placement. He also takes: - mirtazapine 15 mg at bedtime - gabapentin 600 mg three times a day - iron sulfate 325 twice a day EXAMINATION: He is alert, pleasant, cooperative, conversant. No apparent distress. Lungs: Clear and symmetrical with apices ventilated well. Wound dressing in place over his new pacemaker implantation. Bowel sounds present. No guarding or rebound. No edema. Sequentials are in place. ASSESSMENT: 1. Sick sinus syndrome status post pacemaker implantation. 2. History of coronary artery disease. 3. Status post bariatric surgery. 4. History of depression. PLAN: Continue current program. Anticipate discharge possibly as early as tomorrow.
[2018-08-21 12:00] VITALS: BP 164/98
--- NOTE | 2018-08-23 00:20 | DSES ---
DATE OF ADMISSION: 08/19/2018 DATE OF DISCHARGE: 08/21/2018 REASON FOR ADMISSION: Mr. Noland was admitted from the emergency department (ED) by the hospitalist service on 08/19/2018 with complaint of syncope. He had had previous episodes of sweating and lightheaded episodes over the past year, but finally culminated in syncope, was found to have bradycardia, came to ED. Dr. Henning was consulted by the ED staff. Recommendation for admission. For reasons that are obscure, was admitted to family medicine service. The following morning underwent placement of pacemaker by Dr. Henning, Biotronik dual-chamber pacemaker, model number Edora 8 DR-T with serial number [id number]. Hospital course was unremarkable. No complications. It should be noted that diagnostic imaging revealed left renal cyst and a liver cyst, which may require subsequent ultrasound for confirmation. At this time, his condition is stable, he feels, he has no discomfort other than at the surgical site. The pain from this site has been adequately managed with Tylenol. DISCHARGE DIAGNOSIS: Sick sinus syndrome. Procedure: Pacemaker implantation with Dr. Henning as described. History of depression. Status post bariatric surgery. History of coronary artery disease. DIET: Usual diet before admission, the gastric bypass diet. MEDICATIONS: Vitamin C 500 mg daily, aspirin 81 mg daily, atorvastatin 80 mg daily, vitamin B12 1000 mcg daily, docusate sodium 100 mg by mouth twice a day, iron sulfate 325 mg by mouth twice a day, fluoxetine 20 mg by mouth daily, gabapentin 600 mg by mouth three times a day, lisinopril 20 mg daily, mirtazapine 15 mg nightly, pantoprazole 40 mg daily, and prochlorperazine 10 mg as needed for nausea. ACTIVITY: As tolerated, limit lifting and reaching with the left arm. Leave dressing in place until marcus removed by Dr. Henning at his specified followup date.
== END 2018-08-21 15:42 | disposition home or self-care (01) | DRG 201 ==
LOC: M ED 13:21 → EDBD 13:21 → M ED INP 19:35 → M ICU 20:43
PROVIDERS: ADMIT Internal Medicine; ATTEND Family Medicine
PROC: 02H60JZ Insertion of Pacemaker Lead into Right Atrium, Open Approach (ICD-10-PCS; 2018-08-20)
PROC: 02HK0JZ Insertion of Pacemaker Lead into Right Ventricle, Open Approach (ICD-10-PCS; 2018-08-20)
PROC: 0JH606Z Insertion of Pacemaker, Dual Chamber into Chest Subcutaneous Tissue and Fascia, Open Approach (ICD-10-PCS; principal; 2018-08-20 14:00)
DX: I49.5 Sick sinus syndrome (principal); K76.89 Other specified diseases of liver; N28.1 Cyst of kidney, acquired; F32.9 Major depressive disorder, single episode, unspecified; I25.10 Atherosclerotic heart disease of native coronary artery without angina pectoris; I25.2 Old myocardial infarction; I10 Essential (primary) hypertension; E78.5 Hyperlipidemia, unspecified; K21.9 Gastro-esophageal reflux disease without esophagitis; Z88.8 Allergy status to other drugs, medicaments and biological substances; Z79.899 Other long term (current) drug therapy; Z79.82 Long term (current) use of aspirin

== ENCOUNTER → 2018-09-22 | Outpatient (CLI) | payer OTHER ==
[~2018-09-22] MED LIST changes: +FLUO20CA19 PO; +GABA600T4 PO
--- NOTE | 2018-09-23 09:49 | REP ---
Clinical: Left renal cyst. Technique: Real time bella scale ultrasound examination using curved array transducer. Findings: Liver, spleen and pancreas are normal in contour, size, echogenicity without focal hepatic, splenic or pancreatic lesion identified. Gallbladder is normal and without gallstones, wall thickening, or pericholecystic fluid. No biliary ductal dilatation is appreciated and the common bile duct measures 7 mm diameter. Right kidney is normal in appearance and measures 11.2 x 6.3 x 5.0 cm without hydronephrosis, nephrolithiasis, or cystic lesion. Left kidney measures 11.0 x 5.2 x 5.2 cm and includes 3.3 cm complex hyperechoic exophytic lower pole lesion possibly hemorrhagic/proteinaceous cyst versus mass. Abdominal aorta appears normal and measures 2.1 cm maximal diameter. No ascites. Impression: 1. 3.3 cm hyperechoic mass versus complex cyst off the lower pole of the left kidney requires follow-up pre and postcontrast CT or MRI of the abdomen to distinguish between complex benign cyst versus neoplasm. Electronically Signed by Gaurav Burks MD 09/23/2018 09:41 A
== END ==
LOC: M RAD 08:32
PROVIDERS: ATTEND Family Medicine
DX: N28.1 Cyst of kidney, acquired (principal); K76.89 Other specified diseases of liver

== ENCOUNTER 2018-09-27 12:18 | Emergency (ER) | payer OTHER ==
[~2018-09-27] VITALS: Ht 172.7 cm; Wt 90.9 kg
[2018-09-27 12:19] VITALS: BP 150/93
== END 2018-09-27 14:05 | disposition left against medical advice (07) ==
LOC: M ED 12:18
DX: H92.20 Otorrhagia, unspecified ear (principal); Z53.21 Procedure and treatment not carried out due to patient leaving prior to being seen by health care provider

== ENCOUNTER → 2019-04-25 | Outpatient (CLI) | payer OTHER ==
[~2019-04-25] MED LIST changes: -/LINE60TA; +ASPI-255 PO; -ASPI1TAB PO; -ASPI325T25 PO; +ASPI81TA26 PO; +CYAN100049 PO; +HYDR-2541 PO; +HYDR-3715 PO; -HYDR25TAB PO; +ISOVUE-370 76% 100ML VIAL (Q9967) As Ordered ONE; +LINE1TAB6 PO; -LINE600T11 PO; -NORCOTAB PO; -OMEP20CA3 PO; +OMEP20CA4 PO; -VICO5TAB16 PO; +VICO5TAB17 PO; -VITA10002 PO; +ZYVO100T
--- NOTE | 2019-04-26 10:13 | REP ---
Clinical: Evaluate complex left renal lesion. Technique: Axial precontrast, contrast enhanced, and delayed images of the abdomen and pelvis using 100 ml Isovue 370 intravenous contrast material with coronal and sagittal re-formations. Comparison: 08/19/2018. Findings: A 3.7 cm isodense lesion extending from the inferior pole left kidney demonstrates suggestion for very subtle enhancement through 5-minute delayed images and appears slightly increased in size when compared to prior examination (previously measuring 3.2 cm maximal diameter). While this may reflect a complex proteinaceous cyst, renal mass cannot definitively be excluded. Remainder of the visualized urinary tract system is normal. Liver, spleen, pancreas, gallbladder, and bilateral adrenal glands are normal / stable. Evidence of prior gastric bypass surgery again noted. No obvious adenopathy. No ascites. No free air. Abdominal aorta without aneurysm. Musculoskeletal structures are intact. Lung bases are relatively clear/stable. Impression: 1. The complex lesion along the inferior pole of the left kidney appears slightly increased in size when compared to prior examination and demonstrates suggestion for subtle increased enhancement. Renal mass cannot definitively be excluded. Electronically Signed by Gaurav Burks MD 04/26/2019 10:06 A
== END ==
LOC: M RAD 07:54
PROVIDERS: ATTEND Family Medicine
DX: N28.1 Cyst of kidney, acquired (principal); N28.89 Other specified disorders of kidney and ureter
CPT/HCPCS: 74170; Q9967

== ENCOUNTER → 2019-05-03 | Outpatient (REF) | payer MEDICARE, OTHER ==
[~2019-05-03] MED LIST changes: -ISOVUE-370 76% 100ML VIAL (Q9967) As Ordered ONE; +MIRT1TAB16 PO
[2019-05-03 20:59] LABS: APPEARANCE, URINE CLEAR (CLEAR); BACTERIA, URINE AUTO NEGATIVE (NEGATIVE); BILIRUBIN, URINE AUTO NEGATIVE (NEGATIVE); BLOOD, URINE BLOOD NEGATIVE (NEGATIVE); COLOR, URINE YELLOW (YELLOW); GLUCOSE, URINE (UA) AUTO NEGATIVE (NEGATIVE); KETONE, URINE AUTO NEGATIVE (NEGATIVE); LEUKOCYTE ESTERASE, URINE AUTO NEGATIVE (NEGATIVE); MUCUS, URINE SMALL (NEGATIVE); NITRITE, URINE AUTO NEGATIVE (NEGATIVE); PROTEIN, URINE AUTO NEGATIVE (NEGATIVE); RBC, URINE AUTO 0 /HPF (0-3); SPECIFIC GRAVITY URINE AUTO 1.008 (1.002-1.035); SQUAMOUS EPITHELIAL CELL UR AU 0 /HPF (0-6); UROBILINOGEN, URINE AUTO 0.2 mg/dL (0.0-2.0); WBC, URINE AUTO 0 /HPF (0-3)
== END ==
LOC: M SFHCADAM 08:53
PROVIDERS: ATTEND Family Medicine
DX: N28.89 Other specified disorders of kidney and ureter (principal)
CPT/HCPCS: 81001; 88108; G0463

== ENCOUNTER → 2019-05-29 | Outpatient (CLI) | payer MEDICARE, OTHER ==
--- NOTE | 2019-05-29 14:54 | REP ---
Two-view chest: 05/29/2019. Indication: Preoperative assessment. Comparison: 08/21/2018. Findings: The lungs are clear. There is no pleural effusion or pneumothorax. Dual lead left-sided pacer is present with the leads intact. The cardiac silhouette is not enlarged. Impression: Clear lungs. Electronically Signed by Antelmo Heredia DO 05/29/2019 02:45 P
[2019-05-29 17:47] LABS: HEMATOCRIT 43.8 % (42.0-52.0); HEMOGLOBIN 14.2 g/dl (13.5-17.5); MEAN CORPUSCULAR HEMOGLOBIN 28.5 pg (27.0-33.0); MEAN CORPUSCULAR HGB CONC 32.4 g/dl (32.0-36.5); MEAN CORPUSCULAR VOLUME 87.8 fl (80.0-96.0); PLATELET COUNT, AUTOMATED 252 10^3/uL (150-450); RED BLOOD COUNT 4.99 10^6/uL (4.30-6.10); WHITE BLOOD COUNT 6.4 10^3/uL (4.0-10.0)
[2019-05-29 17:52] LABS: INR 1.08; PARTIAL THROMBOPLASTIN TIME 33.3 SECONDS (25.0-38.4); PROTHROMBIN TIME 13.7 SECONDS (11.8-14.0)
[2019-05-29 17:56] LABS: BLOOD UREA NITROGEN 9 MG/DL (7-18); CALCIUM LEVEL 8.2 MG/DL (8.5-10.1); CARBON DIOXIDE LEVEL 26 MEQ/L (21-32); CHLORIDE LEVEL 103 MEQ/L (98-107); CREATININE FOR GFR 1.16 MG/DL (0.70-1.30); GLOMERULAR FILTRATION RATE > 60.0 (>56); GLUCOSE, FASTING 150 MG/DL (70-100); POTASSIUM SERUM 3.9 MEQ/L (3.5-5.1); SODIUM LEVEL 138 MEQ/L (136-145)
== END ==
LOC: M ADAMS 14:23
PROVIDERS: ATTEND Nurse Practitioner Family
DX: Z01.818 Encounter for other preprocedural examination (principal); N28.89 Other specified disorders of kidney and ureter

== ENCOUNTER 2019-06-20 07:30 | Inpatient (IN) | payer MEDICARE, OTHER ==
[~2019-06-20] VITALS: Ht 172.7 cm; Wt 101.6 kg
[2019-06-20] MEDS ORDERED: ceFAZolin SOD 2 GM in IV 1 EA IV ONE (10:15)
[2019-06-20] MEDS ORDERED: LR 1,000 ML IV ONE (10:15)
[2019-06-20] MEDS ORDERED: ASPIRIN 81 MG CHEW TABLET PO ONE (13:00)
[2019-06-20] MEDS ORDERED: LIDOCAINE 1% SDV INJ 30 ML VIAL As Ordered ONE (15:19)
[2019-06-20] MEDS ORDERED: BUPIVACAINE HCL 0.25% 30 ML VIAL As Ordered ONE (15:19)
[2019-06-20] MEDS ORDERED: PROPOFOL 200 MG/20 ML VIAL As Ordered ONE (15:28)
[2019-06-20] MEDS ORDERED: METOCLOPRAMIDE INJ 10MG/2ML VIAL (J2765) As Ordered ONE (15:28)
[2019-06-20] MEDS ORDERED: SUGAMMADEX SODIUM 500 MG/5 ML VIAL (BRIDION) As Ordered ONE (15:28)
[2019-06-20] MEDS ORDERED: HYDROmorphone HCL 2 MG/ML 1ML VIAL (J1170) As Ordered ONE (15:28)
[2019-06-20] MEDS ORDERED: fentaNYL 250 MCG/5 ML INJECTION (J3010) As Ordered ONE (15:28)
[2019-06-20] MEDS ORDERED: dexameTHASONE 4 MG/ML 1ML VIAL (J1100) As Ordered ONE (15:28)
[2019-06-20] MEDS ORDERED: ROCURONIUM BROMIDE 50 MG/5 ML VIAL As Ordered ONE ×2 (15:28→17:31)
[2019-06-20] MEDS ORDERED: MIDAZOLAM INJ 2 MG/2 ML VIAL (J2250) As Ordered ONE (15:28)
[2019-06-20] MEDS ORDERED: LIDOCAINE 2% INJ 100 MG/5 ML SDV (FOR ANES.) As Ordered ONE (15:28)
[2019-06-20] MEDS ORDERED: ONDANSETRON 4MG/2ML VIAL (J2405) As Ordered ONE (15:28)
[2019-06-20] MEDS ORDERED: LACRILUBE (AKWA TEARS) OPHTH OINT 3.5 GM As Ordered ONE (15:36)
[2019-06-20] MEDS ORDERED: PHENYLephrine HCL 500 MCG/5 ML (100MCG/ML) SYRINGE (J2370) As Ordered ONE (15:45)
[2019-06-20] MEDS ORDERED: LABETALOL HCL 100 MG/20 ML VIAL As Ordered ONE (16:18)
[2019-06-20] MEDS ORDERED: MANNITOL 25% 12.5 GM/50 ML VIAL (J2150) As Ordered ONE (16:33)
[2019-06-20] MEDS ORDERED: FILTER 1.2 MICRON (ADULT TPN/MANNITOL/REMICADE) XX ONE (16:34)
[2019-06-20] MEDS ORDERED: hydrALAZINE INJ 20 MG/ML VIAL As Ordered ONE (17:07)
[2019-06-20] MEDS ORDERED: ACETAMINOPHEN 1000MG 100ML IV BTL (OFIRMEV) (J0131 PER 10MG) As Ordered ONE (17:29)
[2019-06-20] MEDS ORDERED: fentaNYL 100 MCG/2 ML INJECTION (J3010) As Ordered ONE (18:39)
[2019-06-20] MEDS ORDERED: NS 1,000 ML IV SCH (20:12)
[2019-06-20] MEDS ORDERED: ACETAMINOPHEN TAB 650MG DOSE (2X325MG) PO PRN (20:15)
[2019-06-20] MEDS ORDERED: ONDANSETRON 4MG/2ML VIAL (J2405) IV PRN ×2 (20:15→20:45)
[2019-06-20] MEDS ORDERED: PERCOCET 5MG/325MG TAB PO PRN ×2 (20:15→20:45)
--- NOTE | 2019-06-20 20:35 | ROOPDOC ---
[facility] Report Of Operation Report of Operation DATE OF PROCEDURE: 06/20/19 PREPROCEDURE DIAGNOSES: Left Renal Neoplasm. POSTPROCEDURE DIAGNOSES: Left Renal Neoplasm. PROCEDURE: Left Robotic-assisted Laparoscopic Partial Nephrectomy with Intraoperative Ultrasound for Tumor Mapping. SURGEON: Magalis Serrano MD CLAIM PROCESSOR: None ANESTHESIA: General OPERATIVE INDICATIONS: This is a 53 year old male with a 4cm enhancing solid left renal neoplasm concerning for malignancy. He was brought to the operating room today for treatment. DESCRIPTION OF PROCEDURE: The patient was brought to the operating room and general anesthesia was induced. Prophylactic antibiotics were infused. A Cortez catheter was placed under sterile conditions. The patient was then placed in the right lateral decubitus position. All pressure points were appropriately padded and an axillary roll was placed. He was secured to the table with tape. The patient was then prepped and draped in the usual sterile fashion. The initial incision was for an 8mm port in line with the 11th rib along the lateral rectus margin. A Veress needle was then utilized to achieve the pneumoperitoneum. An 8mm port was then placed in through this incision and through which the camera was inserted. There were no injuries from Veress needle placement or initial trocar placement. The remaining ports were then placed under vision. The left hand robotic port was placed along the costal margin in line with the camera port. Two right hand robotic ports were placed with one just inferior to the camera port, and the other between the anterior-superior iliac spine and the um bilicus. A 12mm senior agricultural assistant port was placed in between the camera port and the more cephalad right hand robotic port. The robot was then docked. We started by dissecting the left colon and the spleen off of Gerota's fascia. At this point the left gonadal vein was identified. This was followed cephalad until the left renal vein was encountered. This was carefully dissected and just inferior and posterior to the renal vein, two right renal arteries were identified. They were both carefully dissected. Next I had our featherer administer 12.5g of mannitol. Gerota's fascia was then opened and I defatted the kidney. On the inferior aspect of the kidney the tumor was seen. It was mostly exophytic. Ultrasound was then utilized to maurziio the boundaries of the mass. Next 2 bulldog clamps were placed on the larger renal artery and 1 clamp was placed on the smaller artery. We then began resecting the mass. The mass was resected completely and it appeared that we had a good margin. Once the mass was removed, the renorrhaphy was performed first by ligating all vessels in the base of resection with a 2-0 vicryl suture using figure of eight stitches. The capsule of the kidney was then reapproximated using 0-vicryl suture with Weck clips to cinch down the suture. Once this was done the clamps were removed and hemostasis was excellent. The warm ischemia time was 40 minutes. Next Rosa Maria was applied to the resection bed and the tumor was placed in an endocatch bag. A John Blake drain was positioned just medial to the kidney. The robot was undocked after confirming hemostasis within the abdomen. The senior agricultural assistant port was then extended at the skin level and then at the fascia. The specimen was then removed in the endocatch bag. The fascia was then closed with a running #0 Vicryl suture. At this point, the abdomen was reinsufflated and we looked back in with the camera and there was no bleeding underneath the extraction site. No abdominal contents were caught within the closure either. We then removed all the ports under direct vision and there was no bleeding from any of the port sites. At this point, all the incisions were thoroughly irrigated. We then closed the skin of each site using a running #4-0 subcuticular Monocryl stitch. The John Blake drain was secured to the skin usint #3-0 Ethilon suture. Local anesthetic was then applied to each incision and Dermabond was then applied and this marked the conclusion of the procedure. The patient was then taken out of the left lateral decubitus position, awakened from anesthesia and transported to the recovery room in stable condition. ESTIMATED BLOOD LOSS: 25 mL INTRAOPERATIVE COMPLICATIONS: None SPECIMENS: Left renal neoplasm WARM ISCHEMIA TIME: 40 minutes NORMAL LEFT RENAL PARENCHYMA SPARED: approximately 90% PLAN: The patient will be admitted to the hospital postoperatively and he will be discharged home once his renal function is stable and he is tolerating a regular diet. MAGALIS SERRANO MD Jun 20, 2019 20:35
[2019-06-20 20:36] LABS: HEMATOCRIT 44.8 % (42.0-52.0); HEMOGLOBIN 14.5 g/dl (13.5-17.5); MEAN CORPUSCULAR HEMOGLOBIN 28.4 pg (27.0-33.0); MEAN CORPUSCULAR HGB CONC 32.4 g/dl (32.0-36.5); MEAN CORPUSCULAR VOLUME 87.8 fl (80.0-96.0); PLATELET COUNT, AUTOMATED 202 10^3/uL (150-450); WHITE BLOOD COUNT 12.9 10^3/uL (4.0-10.0)
[2019-06-20] MEDS ORDERED: LR 1,000 ML IV SCH (20:45)
[2019-06-20] MEDS ORDERED: LABETALOL HCL 100 MG/20 ML VIAL IV PRN (20:45)
[2019-06-20 20:55] LABS: CALCIUM LEVEL 8.3 MG/DL (8.5-10.1); CREATININE FOR GFR 1.34 MG/DL (0.70-1.30); GLOMERULAR FILTRATION RATE 59.8 (>56); POTASSIUM SERUM 4.4 MEQ/L (3.5-5.1)
[2019-06-20] MEDS: PERCOCET 5MG/325MG TAB PO PRN (21:10)
[2019-06-20] MEDS: fentaNYL 100 MCG/2 ML INJECTION (J3010) IV PRN ×4 (21:11→21:30)
[2019-06-20 22:00] VITALS: BP 155/95
[2019-06-20 22:30] VITALS: BP 152/94
[2019-06-20] MEDS: FERROUS SULFATE 325MG TAB PO SCH (22:43)
[2019-06-20] MEDS: MIRTAZAPINE 15 MG TAB PO SCH (22:44)
[2019-06-20] MEDS: DOCUSATE SODIUM 100 MG CAP PO SCH (22:44)
[2019-06-20] MEDS: GABAPENTIN 300 MG CAP PO SCH (22:44)
[2019-06-20] MEDS: ceFAZolin SOD 1 GM in D5W MINI-BAG PLUS 50 ML IV SCH (22:53)
[2019-06-20 23:00] VITALS: BP 143/87
[2019-06-21] VITALS (15 sets, daily range): BP systolic 98–146; BP diastolic 61–88; O2SAT 98
[2019-06-21] MEDS: PERCOCET 5MG/325MG TAB PO PRN ×4 (01:20→22:54)
[2019-06-21] MEDS: ceFAZolin SOD 1 GM in D5W MINI-BAG PLUS 50 ML IV SCH ×2 (06:31→22:50)
[2019-06-21 07:25] LABS: HEMATOCRIT 40.9 % (42.0-52.0); MEAN CORPUSCULAR HEMOGLOBIN 28.2 pg (27.0-33.0); MEAN CORPUSCULAR HGB CONC 31.8 g/dl (32.0-36.5); MEAN CORPUSCULAR VOLUME 88.7 fl (80.0-96.0); PLATELET COUNT, AUTOMATED 151 10^3/uL (150-450); RED BLOOD COUNT 4.61 10^6/uL (4.30-6.10); WHITE BLOOD COUNT 12.4 10^3/uL (4.0-10.0)
--- NOTE | 2019-06-21 07:37 | IPNPDOC ---
Subjective Review oF Systems Chief Complaint The patient is a 53-year-old male admitted with a reason for visit of Renal Mass. Events since Last Encounter No acute events o/n. Good pain control. No n/v. Tolerating clears. No f/ c/ns. Objective Physical Examination General Exam: Alert, Cooperative, No Acute Distress ABDOMEN EXAM: Soft, Tenderness (mild), Other (incisions clean/dry/intact; [place] w/ serosanguinous output) Neuro Exam: Normal Speech Psych Exam: Mental status NL, Mood NL Other physical findings catheter draining clear urine Vital Signs/I&O Vital Signs Date Time Temp Pulse Resp B/P (MAP) Pulse Ox O2 Delivery O2 Flow Rate FiO2 06/21/19 06:31 17 06/21/19 06:00 98.0 67 138/82 (100) 96 Nasal Cannula 1.0 I&O- Last 24 Hours up to 6 AM 06/21/19 05:59 Intake Total 4950 ml Output Total 225 ml Balance 4725 ml Laboratory Data Labs 24H Laboratory Tests 2 06/20/19 19:24: Nucleated Red Blood Cells % (auto) 0.0, Anion Gap 9, Glomerular Filtration Rate 59.8, Calcium Level 8.3L 06/21/19 06:47: Nucleated Red Blood Cells % (auto) 0.0 CBC/BMP Laboratory Tests 06/20/19 19:24 06/21/19 06:47 Assessment/Plan Date Seen The patient was seen on 06/21/19. Patient Summary This is a 53`y/o M POD1 left robotic partial nephrectomy. Doing well. Hb stable this morning. BMP pending. Good UOP. Plan/VTE VTE Prophylaxis Ordered?: No VTE Exclusion Mechanical Proph: N/A:VTE Prophy Ordered Plan/Urinary Catheter Urinary Catheter: D/C Cortez Plan - d/c catheter - d/c IVF - cont home meds - strict I/Os - SCDs when in bed - incentive spirometry - ambulate - advance diet as tolerated MAGALIS SERRANO MD Jun 21, 2019 07:37
[2019-06-21 07:49] LABS: BLOOD UREA NITROGEN 7 MG/DL (7-18); CALCIUM LEVEL 8.5 MG/DL (8.5-10.1); CARBON DIOXIDE LEVEL 26 MEQ/L (21-32); CHLORIDE LEVEL 106 MEQ/L (98-107); CREATININE FOR GFR 1.31 MG/DL (0.70-1.30); GLOMERULAR FILTRATION RATE > 60.0 (>56); GLUCOSE, FASTING 126 MG/DL (70-100); POTASSIUM SERUM 4.5 MEQ/L (3.5-5.1); SODIUM LEVEL 137 MEQ/L (136-145)
[2019-06-21] MEDS ORDERED: LISINOPRIL 20 MG TAB PO SCH (09:00)
[2019-06-21] MEDS ORDERED: FLUBLOK(EGG FREE)(QUAD)INFLUENZA VACC 0.5ML SYRINGE (90682)18YRS&OLDER IM ONE (09:00)
[2019-06-21] MEDS: ATORVASTATIN 20 MG TAB PO SCH (10:20)
[2019-06-21] MEDS: FERROUS SULFATE 325MG TAB PO SCH ×2 (10:20→21:22)
[2019-06-21] MEDS: DOCUSATE SODIUM 100 MG CAP PO SCH ×2 (10:20→21:22)
[2019-06-21] MEDS: GABAPENTIN 300 MG CAP PO SCH ×3 (10:21→21:22)
[2019-06-21] MEDS: FLUoxetine 20 MG CAP PO SCH (10:21)
[2019-06-21] MEDS: PANTOPRAZOLE 40MG TAB (PROTONIX) PO SCH (10:21)
[2019-06-21] MEDS ORDERED: NS 1,000 ML IV ONE (12:00)
[2019-06-21 12:05] LABS: MEAN CORPUSCULAR HEMOGLOBIN 28.4 pg (27.0-33.0); MEAN CORPUSCULAR HGB CONC 32.2 g/dl (32.0-36.5); MEAN CORPUSCULAR VOLUME 88.2 fl (80.0-96.0); PLATELET COUNT, AUTOMATED 191 10^3/uL (150-450); RED BLOOD COUNT 3.31 10^6/uL (4.30-6.10); WHITE BLOOD COUNT 13.1 10^3/uL (4.0-10.0)
[2019-06-21 12:08] LABS: HEMATOCRIT 29.2 % (42.0-52.0); HEMOGLOBIN 9.4 g/dl (13.5-17.5)
[2019-06-21] MEDS ORDERED: diphenhydrAMINE INJ 50MG/ML VIAL (J1200) As Ordered ONE (12:13)
[2019-06-21] MEDS ORDERED: fentaNYL 100 MCG/2 ML INJECTION (J3010) As Ordered ONE ×2 (12:13→14:00)
[2019-06-21] MEDS ORDERED: MIDAZOLAM INJ 2 MG/2 ML VIAL (J2250) As Ordered ONE ×2 (12:13→14:00)
[2019-06-21] MEDS ORDERED: LIDOCAINE 1% MDV 20ML VIAL As Ordered ONE (12:14)
[2019-06-21] MEDS ORDERED: ISOVUE-300 61% 50ML VIAL (Q9967) As Ordered ONE ×3 (12:14→13:18)
[2019-06-21 12:21] LABS: INR 1.32; PROTHROMBIN TIME 16.1 SECONDS (11.8-14.0)
[2019-06-21] MEDS ORDERED: HEPARIN 1,000 UNITS/ML 10ML VIAL (FOR RADIOLOGY& DIALYSIS ONLY) As Ordered ONE (12:23)
[2019-06-21 12:39] LABS: ALBUMIN 2.7 GM/DL (3.2-5.2); ALT/SGPT 20 U/L (12-78); BILIRUBIN,TOTAL 0.4 MG/DL (0.2-1.0); BLOOD UREA NITROGEN 8 MG/DL (7-18); CARBON DIOXIDE LEVEL 26 MEQ/L (21-32); CHLORIDE LEVEL 107 MEQ/L (98-107); CK-MB VALUE MASS 2.7 NG/ML (<3.6); CPK CREATINE PHOSPHOKINASE 518 U/L (39-308); CREATININE FOR GFR 1.55 MG/DL (0.70-1.30); GLOMERULAR FILTRATION RATE 50.6 (>56); GLUCOSE, FASTING 118 MG/DL (70-100); MB/CK RELATIVE INDEX 0.52 (< OR =4); POTASSIUM SERUM 4.3 MEQ/L (3.5-5.1); SODIUM LEVEL 140 MEQ/L (136-145); TOTAL PROTEIN 4.9 GM/DL (6.4-8.2); TROPONIN I < 0.02 NG/ML (< 0.10)
[2019-06-21] MEDS ORDERED: PROPOFOL 200 MG/20 ML VIAL As Ordered ONE (14:00)
[2019-06-21] MEDS ORDERED: LIDOCAINE 2% INJ 100 MG/5 ML SDV (FOR ANES.) As Ordered ONE (14:01)
[2019-06-21] MEDS ORDERED: BUPIVACAINE HCL 0.25% 30 ML VIAL As Ordered ONE (14:01)
[2019-06-21] MEDS ORDERED: LIDOCAINE 1% SDV INJ 30 ML VIAL As Ordered ONE (14:01)
[2019-06-21] MEDS ORDERED: ROCURONIUM BROMIDE 50 MG/5 ML VIAL As Ordered ONE ×3 (14:01→17:57)
[2019-06-21] MEDS ORDERED: dexameTHASONE 4 MG/ML 1ML VIAL (J1100) As Ordered ONE ×2 (14:05→16:45)
[2019-06-21] MEDS ORDERED: ONDANSETRON 4MG/2ML VIAL (J2405) As Ordered ONE ×2 (14:05→16:45)
[2019-06-21] MEDS ORDERED: ceFAZolin 2 GM/D5W 50 ML IV BAG (J0690 PER 500MG) As Ordered ONE (14:57)
--- NOTE | 2019-06-21 16:20 | POST-OPPD ---
Postoperative Procedure Note Date Of Procedure: Jun 21, 2019 Time Of Procedure: 14:04 PREOPERATIVE DIAGNOSIS: Hemorrhage status post left partial nephrectomy POSTOPERATIVE DIAGNOSIS: Hemorrhage status post left partial nephrectomy FINDINGS: Normal main renal artery and accessory renal artery. No extravasation from the main, lobar or distal renal arteries. Aortogram demonstrates no gross extravasation. PROCEDURE: Aortogram and renal angiogram SURGEON: Renita ANESTHESIA: Local anesthesia ESTIMATED BLOOD LOSS: Less than 5 mL COMPLICATIONS: None POSTOPERATIVE CONDITION: Stable ADÁN BLACKMON MD Jun 21, 2019 16:20
[2019-06-21] MEDS ORDERED: HYDROmorphone HCL 2 MG/ML 1ML VIAL (J1170) As Ordered ONE (16:46)
[2019-06-21] MEDS ORDERED: SUGAMMADEX SODIUM 500 MG/5 ML VIAL (BRIDION) As Ordered ONE (16:51)
[2019-06-21] MEDS ORDERED: NS 1,000 ML IV SCH (19:04)
[2019-06-21] MEDS ORDERED: ONDANSETRON 4MG/2ML VIAL (J2405) IV PRN (19:15)
[2019-06-21] MEDS ORDERED: LR 1,000 ML IV SCH (19:15)
[2019-06-21] MEDS ORDERED: oxyCODONE 5MG TAB PO PRN (19:15)
[2019-06-21] MEDS ORDERED: fentaNYL 100 MCG/2 ML INJECTION (J3010) IV PRN (19:15)
[2019-06-21 19:16] LABS: HEMATOCRIT 38.7 % (42.0-52.0); MEAN CORPUSCULAR HEMOGLOBIN 28.4 pg (27.0-33.0); MEAN CORPUSCULAR HGB CONC 33.3 g/dl (32.0-36.5); MEAN CORPUSCULAR VOLUME 85.2 fl (80.0-96.0); PLATELET COUNT, AUTOMATED 156 10^3/uL (150-450); RED BLOOD COUNT 4.54 10^6/uL (4.30-6.10); WHITE BLOOD COUNT 14.1 10^3/uL (4.0-10.0)
[2019-06-21 19:27] LABS: HEMOGLOBIN 12.9 g/dl (13.5-17.5)
[2019-06-21 19:37] LABS: CALCIUM LEVEL 7.4 MG/DL (8.5-10.1); CREATININE FOR GFR 1.44 MG/DL (0.70-1.30); GLOMERULAR FILTRATION RATE 55.1 (>56); POTASSIUM SERUM 4.6 MEQ/L (3.5-5.1)
[2019-06-21] MEDS ORDERED: oxyCODONE 5MG TAB As Ordered ONE (19:41)
--- NOTE | 2019-06-21 20:33 | ROOPDOC ---
[facility] Report Of Operation Report of Operation DATE OF PROCEDURE: 06/21/19 PREPROCEDURE DIAGNOSES: Postoperative bleed. POSTPROCEDURE DIAGNOSES: Postoperative bleed. PROCEDURE: Left Robotic renal exploration and control of bleeding from partial nephrectomy bed. SURGEON: Magalis Serrano MD GREEN INSPECTOR: None ANESTHESIA: General OPERATIVE INDICATIONS: This is a 53 year old male who experienced a drop in hemoglobin and bleeding from his John Blake drain site postoperative day 1 status post a robotic left partial nephectomy. Given the concern for postoperative bleeding from his partial nephrectomy bed, he was taken to Interventional Radiology with an attempt at embolization. A bleeding source could not be identified and therefore it was recommended that he be brought back emergently for the above procedure. DESCRIPTION OF PROCEDURE: The patient was brought to the operating room and general anesthesia was induced. Prophylactic antibiotics were infused. The patient was then placed in the right lateral decubitus position. All pressure points were appropriately padded and an axillary roll was placed. He was secured to the table with tape. The patient was then prepped and draped in the usual sterile fashion. We then opened his previous 8mm camera port incision and a Veress needle was then utilized to achieve the pneumoperitoneum. An 8mm port was then placed in through this incision and through which the camera was inserted. There were no injuries from Veress needle placement or initial trocar placement. The remaining ports were then placed under vision through his previous incisions. The robot was then docked. There was a large amount of blood clot overlying the kidney. This was suctioned out and the partial nephrectomy bed was examined. There appeared to be a slow bleed coming from the lateral aspect of the partial nephrectomy bed. I then defatted the kidney around the partial nephectomy bed and placed additional 0-vicryl suture through the capsule of the kidney in a horizontal mattress fashion and cinched it down with Weck clips. A bolster of Surgicel was placed in the partial nephrectomy bed and under the suture prior to cinching it down. Once this was done, the bleeding stopped. Next Rosa Maria was applied to the resection bed as well. A John Blake drain was positioned just medial to the kidney. The robot was undocked after confirming hemostasis within the abdomen. I then used a Eusebia fascial closure device to place 0- vicryl free ties through the fascia of the 12mm robotic port and the 15mm social research assistant port sites. I then removed all of the ports under direct vision and there did not appear to be any active bleeding. Once all of the ports were removed, the previously placed 0-vicryl free ties were tied down. All of the por t sites were then irrigated. We then began closing the skin with running #4-0 subcuticular Monocryl. While doing this the patient started draining blood around his John-Blake drain. To investigate, the abdomen was reinsufflated and the partial nephrectomy bed was examined. There did not appear to be any active bleeding from it. The skin of the port site from the drain was coming was then extended to investigate if the bleeding was coming from the incision. I dissected down to the fascia and opened it. The muscle was examined and it did not appear to be actively bleeding. The blood appeared to be coming from within the abdomen, indicating that it was very likely old blood from the patient's bleed earlier draining out. At this point the drain was removed and the fascia was closed with a running #0-Vicryl suture. The wound was then irrigated and the subcutaneous tissue of the incision was reapproximated with interrupted #2-0 Vicryl suture. All incisions were then closed and Dermabond was applied, marking the conclusion of the procedure. The patient was then taken out of the left lateral decubitus position, awakened from anesthesia and transported to the recovery room in stable condition. ESTIMATED BLOOD LOSS: 250 mL INTRAOPERATIVE COMPLICATIONS: None SPECIMENS: None PLAN: The patient will be monitored in the ICU and kept bedrest. We will monitor his hemoglobin closely and if stable we will let him ambulate in a day or two, and if his hemoglobin remains stable at that point, he can be discharged home. MAGALIS SERRANO MD Jun 21, 2019 19:26
[2019-06-21] MEDS: MIRTAZAPINE 15 MG TAB PO SCH (21:22)
[2019-06-22] VITALS (28 sets, daily range): BP systolic 107–135; BP diastolic 42–76; O2SAT 93–98
[2019-06-22 00:38] LABS: HEMATOCRIT 34.4 % (42.0-52.0); HEMOGLOBIN 11.4 g/dl (13.5-17.5)
--- NOTE | 2019-06-22 01:33 | CR.PDOC ---
General Date of Consultation: Jun 21, 2019 Referring Provider: MAGALIS SERRANO MD Primary Care Physician: Wali Jalloh MD Attending Physician: DIMITRI ROSS DO Consultation HOSPITALIST CONSULT REASON FOR CONSULTATION/CHIEF COMPLAINT: post-op management, acute blood loss anemia HISTORY OF PRESENT ILLNESS: 53-year-old male with notable hx of CAD s/p LA, CVA, PPM placement, with recently-found incidental left renal complex cyst a few months ago, underwent left partial nephrectomy 06/20/2019 and was on regular medical floor for postop observation. , was noted to have bloody output from his [place] drain, rapid assessment was called due to patient reportedly having collapsed while going to the bathroom, likely vasovagal from blood loss. He was found to have a drop in hemoglobin by 3.5 units, down from 13 to 9.4, t ransfused a total of 4 units thus far. No source of bleed found during aortogram and renal angiogram in IR, and patient was thereafter taken back to the OR for emergent abdominal exploration, and bleeding at the site of nephrectomy was sutured. Postoperatively being monitored in ICU, and Hospitalist was consulted for continued medical management. He has no current complaints besides mild tenderness around surgical sites. Hemodynamically stable and in good spirits. ALLERGIES: Please see below. HOME MEDICATIONS: Please see below. PAST MEDICAL HISTORY: CAD, MIx2 s/p cardiac stent Hx CVA B12 deficiency Chronic iron deficiency Depression Insomnia Hypertension GERD s/p gastric bypass cervical lumbar spinal issues HUONG resolved s/P gastric bypass Left renal complex cyst PAST SURGICAL HISTORY: Cervical fusion 05/2016 Gastric bypass 2006 Right occipital block 2015 Cardiac catheter since 1990 All teeth extracted 10/19/2016 Left occipital neurectomy with post op wound infection 11/2016 Right knee surgery 09/2017 Pacemaker 08/2018 Cardiac stent FAMILY HISTORY: Father: , diabetes, hypertension Mother: Alive, hypertension SOCIAL HISTORY: Total disability 2/2 cervical lumbar spinal issues Denies any tobacco, alcohol, illicit substances REVIEW OF SYSTEMS: Constitutional: Denies fever, chills ENT: Denies headaches, dysphagia Skin: Denies any rashes or lesions Pulmonary: Denies dyspnea, cough, wheezing Cardiac: Denies chest pain, palpitations, lightheadedness GI: Denies nausea, vomiting. Admits abdominal pain near sites of surgery : Admits to urinating well without any issues MSK: Denies any new pains or muscle aches Neurologic: Denies weakness or new numbness/tingling PHYSICAL EXAMINATION: VITAL SIGNS: Please see below. General exam: Alert and cooperative, A&O 3, NAD Eye exam: PERRLA, EOMI ENT: Atraumatic, normocephalic Neck: Supple Cardiac: RRR, normal S1 & S2, no murmurs. Pacemaker left upper chest palpable Respiratory: CTAB, good air exchange, no wheezing, rhonchi, or rales Abdomen: normoactive bowel sounds, soft, nondistended. Multiple intact fresh incisions on abdomen from recent surgeries, no signs of infection Extremity: 2+ radial pulses, no edema or calf tenderness. MSK: able to move all extremities independently Skin: [place], warm, dry, no visible rash or lesions Neuro: normal tone, normal speech, no focal deficits Psych: Normal mood and affect : Cortez catheter in place with clear yellow output LABORATORY DATA: Please see below. ASSESSMENT/PLAN: 53-year-old male with postoperative bleeding from left partial nephrectomy to assess recently-found complex cyst. 1. Acute blood loss anemia postoperatively: Has been transfused total of 4 units thus far, hemoglobin stable in 11-12 range. Baseline appears to be 13-14. Continue monitoring and transfuse as needed to maintain hemoglobin above 8. Hemodynamically doing well, vitals stable. Urine output is clear thus far. 2. Lactic acidosis: resolved. Likely 2/2 volume loss from recent hemorrhaging. No signs of infection. Has been transfused with improvement hemoglobin and repeat lactate normalized. 3. ANJALI: Baseline creatinine appears 1-1.1. Elevation likely 2/2 recent partial nephrectomy and volume loss. Hold Lisinopril and hydrate postoperatively. 4. Left renal complex cyst: Underwent partial nephrectomy, biopsy pending. Pain, diet, activity as per urology 5. History of CAD, LA, stroke: A/P pacemaker, follows Dr. Henning. Hold aspirin given recent hemorrhage. Continue statin 6. Iron deficiency anemia: Resume po iron supplement 7. Hypertension: Currently stable. Hold Lisinopril and other nephrotoxins until renal function recovers 8. Depression insomnia: Currently stable. Continue home meds 9. GERD: continue PPI 10. B12 deficiency: Hold home meds. No deficits DVT ppx: Mechanical, avoid anticoagulation Thank you for involving us in Mr. Antonio's care. Please call for any questions. We will continue to follow along. Vital Signs/I&O Vital Signs Date Time Temp Pulse Resp B/P (MAP) Pulse Ox O2 Delivery O2 Flow Rate FiO2 06/21/19 19:42 16 06/21/19 19:20 69 111/66 (81) 97 Room Air 06/21/19 19:05 98.9 06/21/19 13:45 2 I&O- Last 24 Hours up to 6 AM 06/21/19 06:00 Intake Total 5600 ml Output Total 1515 ml Balance 4085 ml Laboratory Data Labs 24H Laboratory Tests 2 06/21/19 06:47: Nucleated Red Blood Cells % (auto) 0.0, Anion Gap 5L, Glomerular Filtration Rate > 60.0, Calcium Level 8.5 06/21/19 11:42: Bedside Glucose (Misc Panel) 137H 06/21/19 11:59: Nucleated Red Blood Cells % (auto) 0.0, Anion Gap 7L, Glomerular Filtration Rate 50.6L, Calcium Level 8.0L, Prothrombin Time 16.1H, Prothromb Time International Ratio 1.32, Lactic Acid Level 4.6*H, Total Bilirubin 0.4, Aspartate Amino Transf (AST/SGOT) 25, Alanine Aminotransferase (ALT/SGPT) 20, Alkaline Phosphatase 70, Total Creatine Kinase 518H, Creatine Kinase MB 2.7, Creatine Kinase MB Relative Index 0.52, Troponin I < 0.02, Total Protein 4.9L, Albumin 2.7L, Albumin/Globulin Ratio 1.23 06/21/19 14:40: POC pH (Misc Panel) 7.334L, POC Base Excess (Misc Panel) -3.0L, POC Saturated Percent O2 (Misc) 100H, POC pO2 (Misc Panel) 278.0H, POC pCO2 (Misc Panel) 42.9, POC HCO3 (Misc Panel) 22.8, POC Glucose (Misc Panel) 108H, POC Sodium (Misc Panel) 138, POC Potassium (Misc Panel) 4.1, POC Total CO2 (Misc Panel) 24.0, POC Ionized Calcium (Misc Panel) 4.4L, POC Hemoglobin (Calculated)(Misc) 10.9L, POC Hematocrit (Misc Panel) 32.0L 06/21/19 18:40: Nucleated Red Blood Cells % (auto) 0.0, Anion Gap 7L, Glomerular Filtration Rate 55.1L, Calcium Level 7.4L CBC/BMP Laboratory Tests 06/21/19 06:47 06/21/19 11:59 06/21/19 18:40 Allergies Coded Allergies: tramadol (Verified Allergy, Intermediate, dopey, turn white, itch, 05/31/19) NSAIDS (Non-Steroidal Anti-Inflamma (Verified Adverse Reaction, Intermediate, hx gastric bypass, 05/31/19) Home Medications Scheduled Ascorbic Acid (Vitamin C) 500 Mg Tab, 500 MG PO DAILY, (Reported) Aspirin (Aspirin EC) 81 Mg Tab, 81 MG PO DAILY, (Reported) Atorvastatin Calcium (Lipitor) 80 Mg Tab, 80 MG PO DAILY, (Reported) Cyanocobalamin (Vitamin B-12) (Vitamin B-12) 1,000 Mcg Tab, 1,000 MCG PO DAILY, (Reported) Ferrous Sulfate (Ferrous Sulfate) 325 Mg Tab, 325 MG PO BID, (Reported) Fluoxetine Hcl (Fluoxetine HCl) 20 Mg Cap, 20 MG PO DAILY, (Reported) Gabapentin (Gabapentin) 600 Mg Tab, 600 MG PO TID, (Reported) Lisinopril (Lisinopril) 20 Mg Tab, 20 MG PO DAILY, (Reported) Mirtazapine (Mirtazapine) 30 Mg Tab.rapdis, 15 MG PO QPM, (Reported) Pantoprazole Sodium (Pantoprazole Sodium) 40 Mg Tab, 40 MG PO DAILY, (Reported) Scheduled PRN Docusate Sodium (Colace) 100 Mg Cap, 100 MG PO BID PRN for CONSTIPATION, (Reported) Prochlorperazine Maleate (Prochlorperazine Maleate) 10 Mg Tab, 10 MG PO TIDP PRN for NAUSEA, (Reported) GME ATTESTATION GME ATTESTATION My faculty preceptor for this patient encounter was physically present during the encounter and was fully available. All aspects of the patient interview, examination, medical decision making process, and medical care plan development were reviewed and approved by the faculty preceptor. The faculty preceptor is aware and concurs with the plan as stated in the body of this note and will attest to such by his/her cosignature. DELFINA CISNEROS DO Jun 21, 2019 19:53
[2019-06-22] MEDS: MORPHINE 2 MG/ML 1ML VIAL (J2270) IV PRN ×2 (02:39→14:20)
[2019-06-22] MEDS: PERCOCET 5MG/325MG TAB PO PRN ×5 (04:37→21:11)
[2019-06-22 05:15] LABS: BLOOD UREA NITROGEN 8 MG/DL (7-18); CALCIUM LEVEL 7.7 MG/DL (8.5-10.1); CARBON DIOXIDE LEVEL 28 MEQ/L (21-32); CHLORIDE LEVEL 108 MEQ/L (98-107); CREATININE FOR GFR 1.11 MG/DL (0.70-1.30); GLOMERULAR FILTRATION RATE > 60.0 (>56); GLUCOSE, FASTING 119 MG/DL (70-100); POTASSIUM SERUM 4.7 MEQ/L (3.5-5.1); SODIUM LEVEL 139 MEQ/L (136-145)
[2019-06-22 05:16] LABS: HEMOGLOBIN 11.2 g/dl (13.5-17.5); MEAN CORPUSCULAR HEMOGLOBIN 28.6 pg (27.0-33.0); MEAN CORPUSCULAR HGB CONC 32.9 g/dl (32.0-36.5); PLATELET COUNT, AUTOMATED 119 10^3/uL (150-450); RED BLOOD COUNT 3.91 10^6/uL (4.30-6.10); WHITE BLOOD COUNT 12.1 10^3/uL (4.0-10.0)
[2019-06-22] MEDS: ceFAZolin SOD 1 GM in D5W MINI-BAG PLUS 50 ML IV SCH (06:24)
[2019-06-22] MEDS: ATORVASTATIN 20 MG TAB PO SCH (08:20)
[2019-06-22] MEDS: PANTOPRAZOLE 40MG TAB (PROTONIX) PO SCH (08:20)
[2019-06-22] MEDS: FERROUS SULFATE 325MG TAB PO SCH ×2 (08:20→19:59)
[2019-06-22] MEDS: GABAPENTIN 300 MG CAP PO SCH ×3 (08:20→19:59)
[2019-06-22] MEDS: DOCUSATE SODIUM 100 MG CAP PO SCH ×2 (08:20→19:59)
[2019-06-22] MEDS: FLUoxetine 20 MG CAP PO SCH (08:20)
--- NOTE | 2019-06-22 08:31 | IPNPDOC ---
Subjective Review oF Systems Chief Complaint The patient is a 53-year-old male admitted with a reason for visit of Renal Mass. Events since Last Encounter No acute events o/n. Patient notes pain is controlled. No chest pain or SOB. No n/v. No f/c/ns. Objective Physical Examination General Exam: Alert, Cooperative, No Acute Distress ABDOMEN EXAM: Soft, Tenderness (mild), Other (incisions clean/dry/intact) Skin Exam: Nl turgor and temperature Neuro Exam: Normal Speech Psych Exam: Mental status NL, Mood NL Other physical findings catheter draining clear urine Vital Signs/I&O Vital Signs Date Time Temp Pulse Resp B/P (MAP) Pulse Ox O2 Delivery O2 Flow Rate FiO2 06/22/19 06:00 61 128/67 (83) 99 Nasal Cannula 2.0 115/64 06/22/19 05:07 20 06/22/19 04:00 98.8 I&O- Last 24 Hours up to 6 AM 06/22/19 06:00 Intake Total 6628 ml Output Total 3365 ml Balance 3263 ml Laboratory Data Labs 24H Laboratory Tests 2 06/21/19 11:42: Bedside Glucose (Misc Panel) 137H 06/21/19 11:59: Nucleated Red Blood Cells % (auto) 0.0, Prothrombin Time 16.1H, Prothromb Time International Ratio 1.32, Anion Gap 7L, Glomerular Filtration Rate 50.6L, Lactic Acid Level 4.6*H, Calcium Level 8.0L, Total Bilirubin 0.4, Aspartate Amino Transf (AST/SGOT) 25, Alanine Aminotransferase (ALT/SGPT) 20, Alkaline Phosphatase 70, Total Creatine Kinase 518H, Creatine Kinase MB 2.7, Creatine Kinase MB Relative Index 0.52, Troponin I < 0.02, Total Protein 4.9L, Albumin 2.7L, Albumin/Globulin Ratio 1.23 06/21/19 14:40: POC pH (Misc Panel) 7.334L, POC Base Excess (Misc Panel) -3.0L, POC Saturated Percent O2 (Misc) 100H, POC pO2 (Misc Panel) 278.0H, POC pCO2 (Misc Panel) 42.9, POC HCO3 (Misc Panel) 22.8, POC Glucose (Misc Panel) 108H, POC Sodium (Misc Panel) 138, POC Potassium (Misc Panel) 4.1, POC Total CO2 (Misc Panel) 24.0, POC Ionized Calcium (Misc Panel) 4.4L, POC Hemoglobin (Calculated)(Misc) 10.9L, POC Hematocrit (Misc Panel) 32.0L 06/21/19 18:40: Nucleated Red Blood Cells % (auto) 0.0, Anion Gap 7L, Glomerular Filtration Rate 55.1L, Calcium Level 7.4L 06/22/19 00:18: Lactic Acid Level 1.6 06/22/19 04:40: Nucleated Red Blood Cells % (auto) 0.0, Anion Gap 3L, Glomerular Filtration Rate > 60.0, Calcium Level 7.7L CBC/BMP Laboratory Tests 06/21/19 11:59 06/21/19 18:40 06/22/19 00:18 06/22/19 04:40 FSBS Laboratory Tests Test 06/21/19 11:42 Range/Units Bedside Glucose (Misc Panel) 137 70-105 MG/DL Assessment/Plan Date Seen The patient was seen on 06/22/19. Patient Summary This is a 53`y/o M POD2 left robotic partial nephrectomy, POD1 s/p take back for left robotic renal exploration and control of bleeding from the partial nephrectomy bed. Hb stable at 11.2. Vitals have been stable throughout then night. Cr 1.1. Very good UOP. Plan/VTE VTE Prophylaxis Ordered?: No VTE Exclusion Mechanical Proph: N/A:VTE Prophy Ordered Plan - cont to monitor vitals and UOP closely - appreciate hospitalist service consult - keep bedrest for 24hrs - perocet prn pain - incentive spirometry - SCDs when in bed - strict I/Os - clear liquid diet -> advance diet as tolerated MAGALIS SERRANO MD Jun 22, 2019 08:05
--- NOTE | 2019-06-22 09:46 | IPNPDOC ---
Subjective Date Seen The patient was seen on 06/22/19. Subjective Chief Complaint/HPI No further bleeding from drain site. No blood in colon. Has abdominal soreness otherwise feels well. No SOb, lightheadedness or CP. Tolerating clears this am. Constitutional: Denies: Chills, Fever Pulmonary: Denies: Dyspnea, Cough Cardiovascular: Denies: Chest Pain, Palpitations Gastrointestinal: Reports: Abdominal Pain, Constipation (No BM yet); Denies: Nausea, Vomiting, Diarrhea Objective Physical Examination General Exam: Positive: Alert, No Acute Distress Chest Exam: Positive: Clear to auscultation; Negative: Rales, Rhonchi, Wheezing Heart Exam: Positive: Rate Normal, Regular Rhythm Abdomen Exam: Positive: Normal bowel sounds, Soft, Tenderness Extremity Exam: Negative: Edema Assessment /Plan Problems (1) ANJALI (acute kidney injury) Status: Resolved Problem Text: Renal function normalized with holding FRANCESCO and IVF hydration (2) Postoperative anemia due to acute blood loss Status: Resolved Problem Text: s/p 4 units PRBC yesterday for anemia with syncope secondary to bleeding from surgical site Went back to OR yesterday for exploration and management of bleeding at surgical site Hgb stable today and no signs of further active bleeding Management is per Dr. Ugalde (Urology) - bed rest currently with clears (3) S/p nephrectomy Problem Text: Per Urolology (4) CAD (coronary artery disease) Status: Chronic Response to Treatment: Stable Problem Text: ASA held due to bleeding (5) DM (diabetes mellitus) Status: Chronic Problem Text: no A1c in [place], but FBG per patient 90-200 as outpx, + AC TID s coverage for now (A1C will be falsely low 2 acute blood loss) Plan/VTE VTE Prophylaxis Ordered?: Yes (SCDs TEDs) VTE Exclusion Mechanical Proph: N/A:VTE Prophy Ordered VTE Exclusion Pharmacological: Bleeding Risk VS, I&O, 24H, Fishbone Vital Signs/I&O Vital Signs Date Time Temp Pulse Resp B/P (MAP) Pulse Ox O2 Delivery O2 Flow Rate FiO2 06/22/19 08:21 18 91 Room Air 06/22/19 08:09 97.5 60 107/42 (63) 2.0 113/70 (87) I&O- Last 24 Hours up to 6 AM 06/22/19 06:00 Intake Total 6628 ml Output Total 3365 ml Balance 3263 ml Laboratory Data 24H LABS Laboratory Tests 2 06/21/19 11:42: Bedside Glucose (Misc Panel) 137H 06/21/19 11:59: Nucleated Red Blood Cells % (auto) 0.0, Prothrombin Time 16.1H, Prothromb Time International Ratio 1.32, Anion Gap 7L, Glomerular Filtration Rate 50.6L, Lactic Acid Level 4.6*H, Calcium Level 8.0L, Total Bilirubin 0.4, Aspartate Amino Transf (AST/SGOT) 25, Alanine Aminotransferase (ALT/SGPT) 20, Alkaline Phosphatase 70, Total Creatine Kinase 518H, Creatine Kinase MB 2.7, Creatine Kinase MB Relative Index 0.52, Troponin I < 0.02, Total Protein 4.9L, Albumin 2.7L, Albumin/Globulin Ratio 1.23 06/21/19 14:40: POC pH (Misc Panel) 7.334L, POC Base Excess (Misc Panel) -3.0L, POC Saturated Percent O2 (Misc) 100H, POC pO2 (Misc Panel) 278.0H, POC pCO2 (Misc Panel) 42.9, POC HCO3 (Misc Panel) 22.8, POC Glucose (Misc Panel) 108H, POC Sodium (Misc Panel) 138, POC Potassium (Misc Panel) 4.1, POC Total CO2 (Misc Panel) 24.0, POC Ionized Calcium (Misc Panel) 4.4L, POC Hemoglobin (Calculated)(Misc) 10.9L, POC Hematocrit (Misc Panel) 32.0L 06/21/19 18:40: Nucleated Red Blood Cells % (auto) 0.0, Anion Gap 7L, Glomerular Filtration Rate 55.1L, Calcium Level 7.4L 06/22/19 00:18: Lactic Acid Level 1.6 06/22/19 04:40: Nucleated Red Blood Cells % (auto) 0.0, Anion Gap 3L, Glomerular Filtration Rate > 60.0, Calcium Level 7.7L CBC/BMP Laboratory Tests 06/21/19 11:59 06/21/19 18:40 06/22/19 00:18 06/22/19 04:40 MELI URIARTE PA-C Jun 22, 2019 09:46 Eliecer Enriquez M.D. 21, 2019 17:36
--- NOTE | 2019-06-22 16:47 | REP ---
IR Right femoral artery access. IR Aortogram. IR selective main left renal angiogram. IR selective accessory left renal angiogram. IR sub selective distal left main renal angiogram. IR sub selective distal left accessory renal angiogram. Clinical Information: Status post partial nephrectomy yesterday for renal tumor. Increased bloody output from [place] drain and drop in hematocrit. Physician: Dr Maravilla.Procedure: The patient was advised of the benefits, risks, and alternatives of the procedure and verbal informed consent was obtained and witnessed.A time out was performed with verification of the patient's name, MRN, site of procedure, and type of procedure to be performed. The patient was positioned in the supine position on the angiographic table. The site was prepped and draped in the usual sterile fashion.Moderate sedation was not appropriate as patient was not NPO. The physician spent 60 minutes of continuous [id number] time with the patient. A disc jockey radiograph reveals internal drain and surgical clips. The right femoral artery was accessed with a micropuncture kit. A Mobile Cohesion wire was advanced into the aorta. The micropuncture sheath was exchanged over the wire for a a 5-[place] vascular sheath. A SOS catheter was advanced over the wire under fluoroscopy guidance and used to catheterize the main left renal artery. An arteriogram was performed and this demonstrates good flow through the main left renal artery and its lobar branches. No extravasation, pseudoaneurysm or dissection. The catheter in conjunction with a wire was used to catheterize the accessory left renal artery. An arteriogram was performed. This demonstrates successful catheterization of the accessory left renal artery. Good flow through the accessory left renal artery without extravasation from its main or lobar branches. No dissection or pseudoaneurysm. A micro catheter and micro wire were advanced through the diagnostic catheter and used to super select the distal main renal artery. An arteriogram was performed and this demonstrates normal flow in the lobar branches of the main renal artery without extravasation, pseudoaneurysm, AV fistula or dissection. The micro catheter and micro wire were then used to sub selectively catheterize the distal accessory left renal artery. An arteriogram was performed and this demonstrates normal flow in the distal accessory left renal artery and its lobar branches without extravasation, pseudoaneurysm, dissection or AV fistula. The micro catheter and micro wire were removed. The diagnostic catheter was used to perform an aortogram. This demonstrates no additional left renal arteries. No gross extravasation. The SOS catheter was exchanged over the wire for a Oscar II catheter. The Oscar II catheter was used to catheterize a left lumbar artery in the vicinity of the surgical bed. An arteriogram was performed and this demonstrates vasoconstriction of the lumbar artery without extravasation. The diagnostic catheter was removed over a wire. A 5-[place] Mynx device was used to close the groin arteriotomy and the sheath was removed. Hemostasis achieved. A sterile dressing was applied to the site. Patient tolerated the procedure well and was transferred to the OR in stable condition. Complications: None. Estimated blood loss: Less than 5 ml. Impression: Left main and left accessory renal artery angiograms demonstrate normal flow through the main and distal branches without active extravasation, pseudoaneurysm, dissection or AV fistula. Bleed may be slower than what can be picked up on angiogram or capillary/venous. No embolization indicated. Thank you for this referral. Electronically Signed by Rachana Maravilla MD 06/22/2019 04:46 P
[2019-06-22 18:43] LABS: HEMOGLOBIN A1c 5.6 %
[2019-06-22] MEDS: MIRTAZAPINE 15 MG TAB PO SCH (19:59)
[2019-06-23] VITALS (7 sets, daily range): BP systolic 120–160; BP diastolic 70–94
[2019-06-23] MEDS: PERCOCET 5MG/325MG TAB PO PRN ×5 (01:44→20:12)
[2019-06-23] MEDS: FLUoxetine 20 MG CAP PO SCH (08:08)
[2019-06-23] MEDS: ATORVASTATIN 20 MG TAB PO SCH (08:08)
[2019-06-23] MEDS: PANTOPRAZOLE 40MG TAB (PROTONIX) PO SCH (08:08)
[2019-06-23] MEDS: DOCUSATE SODIUM 100 MG CAP PO SCH ×2 (08:08→20:02)
[2019-06-23] MEDS: FERROUS SULFATE 325MG TAB PO SCH ×2 (08:08→20:02)
[2019-06-23] MEDS: GABAPENTIN 300 MG CAP PO SCH ×3 (08:09→20:01)
[2019-06-23 08:50] LABS: HEMATOCRIT 36.4 % (42.0-52.0); HEMOGLOBIN 11.4 g/dl (13.5-17.5); MEAN CORPUSCULAR HGB CONC 31.3 g/dl (32.0-36.5); MEAN CORPUSCULAR VOLUME 92.6 fl (80.0-96.0); PLATELET COUNT, AUTOMATED 118 10^3/uL (150-450); RED BLOOD COUNT 3.93 10^6/uL (4.30-6.10); WHITE BLOOD COUNT 8.3 10^3/uL (4.0-10.0)
[2019-06-23 09:04] LABS: BLOOD UREA NITROGEN 6 MG/DL (7-18); CALCIUM LEVEL 8.2 MG/DL (8.5-10.1); CARBON DIOXIDE LEVEL 26 MEQ/L (21-32); CHLORIDE LEVEL 110 MEQ/L (98-107); CREATININE FOR GFR 0.96 MG/DL (0.70-1.30); GLOMERULAR FILTRATION RATE > 60.0 (>56); GLUCOSE, FASTING 106 MG/DL (70-100); POTASSIUM SERUM 4.3 MEQ/L (3.5-5.1); SODIUM LEVEL 141 MEQ/L (136-145)
--- NOTE | 2019-06-23 13:04 | IPNPDOC ---
Subjective Review oF Systems Chief Complaint The patient is a 53-year-old male admitted with a reason for visit of Renal Mass. Events since Last Encounter No acute events o/n. Patient notes good pain control w/ percocet. Tolerating regular diet. No f/c/ns. Objective Physical Examination General Exam: Alert, Cooperative, No Acute Distress ABDOMEN EXAM: Soft, Tenderness (mild), Other (incisions clean/dry/intact) Skin Exam: Nl turgor and temperature Neuro Exam: Normal Speech Psych Exam: Mental status NL, Mood NL Other physical findings catheter draining clear urine Vital Signs/I&O Vital Signs Date Time Temp Pulse Resp B/P (MAP) Pulse Ox O2 Delivery O2 Flow Rate FiO2 06/23/19 12:01 97.9 106 18 146/86 (106) 96 Room Air 06/23/19 04:00 2.0 I&O- Last 24 Hours up to 6 AM 06/23/19 06:00 Intake Total 4220 ml Output Total 4165 ml Balance 55 ml Laboratory Data Labs 24H Laboratory Tests 2 06/22/19 18:07: Estimated Mean Plasma Glucose 114H, Hemoglobin A1c 5.6 06/22/19 21:36: Bedside Glucose (Misc Panel) 101 06/23/19 07:47: Bedside Glucose (Misc Panel) 97 06/23/19 08:26: Nucleated Red Blood Cells % (auto) 0.0, Anion Gap 5L, Glomerular Filtration Rate > 60.0, Calcium Level 8.2L 06/23/19 11:36: Bedside Glucose (Misc Panel) 106H CBC/BMP Laboratory Tests 06/23/19 08:26 FSBS Laboratory Tests Test 06/22/19 21:36 06/23/19 07:47 06/23/19 11:36 Range/Units Bedside Glucose (Misc Panel) 101 97 106 70-105 MG/DL Assessment/Plan Date Seen The patient was seen on 06/23/19. Patient Summary This is a 53 y/o M POD3 left robotic partial nephrectomy, POD2 s/p take back for left robotic renal exploration and control of bleeding from the partial nephrectomy bed. His Hb remains stable. UOP has been very good. Cr 0.96. Problems (1) ANJALI (acute kidney injury) Status: Resolved (2) Postoperative anemia due to acute blood loss Status: Resolved (3) S/p nephrectomy (4) CAD (coronary artery disease) Status: Chronic (5) DM (diabetes mellitus) Status: Chronic Plan/VTE VTE Prophylaxis Ordered?: Yes (SCDs TEDs) VTE Exclusion Mechanical Proph: N/A:VTE Prophy Ordered VTE Exclusion Pharmacological: Bleeding Risk Plan/Urinary Catheter Urinary Catheter: D/C [place] Plan - ok to start ambulating - percocet prn pain - d/c [place] - cont home meds - strict I/Os - SCDs when in bed - regular diet - plan discharge home tomorrow if patient remains stable w/ ambulation today MAGALIS SERRANO MD Jun 23, 2019 13:04
--- NOTE | 2019-06-23 16:02 | IPNPDOC ---
Subjective Date Seen The patient was seen on 06/23/19. Subjective Chief Complaint/HPI no dysuria/hematuria Constitutional: Denies: Chills Eyes: Denies: Pain ENT: Denies: Head Aches Skin: Denies: Lesions Pulmonary: Denies: Dyspnea, Cough Cardiovascular: Denies: Chest Pain, Palpitations Gastrointestinal: Denies: Nausea, Vomiting Objective Physical Examination General Exam: Positive: Alert, No Acute Distress Chest Exam: Positive: Clear to auscultation; Negative: Rales, Rhonchi, Wheezing Abdomen Exam: Positive: Normal bowel sounds, Soft, Tenderness Extremity Exam: Negative: Edema Assessment /Plan Problems (1) Postoperative anemia due to acute blood loss Status: Resolved Problem Text: 06/23 hgb stable at 11.4 06/21 ABL c hypotension, hgb to 9.4 sp 4u tx and emergent surgery to stop postop hemorrhage (2) ANJALI (acute kidney injury) Status: Resolved Problem Text: 06/23 back to baseline cr 1.0 off lisin 20 (3) S/p nephrectomy Problem Text: Per Urolology (4) CAD (coronary artery disease) Status: Chronic Response to Treatment: Stable Problem Text: ASA held due to bleeding (5) DM (diabetes mellitus) Status: Chronic Problem Text: favor continue diet control no A1c in [place], but FBG per patient 90-200 as outpx, + AC TID s coverage for now (A1C 5.6-favor falsely low 2 acute blood loss) 06/23 AC TID/QHS 90-127 (6) Hypertension Status: Chronic Response to Treatment: Stable Problem Text: stable off HD lisin 20 Plan/VTE VTE Prophylaxis Ordered?: Yes (SCDs TEDs) VTE Exclusion Mechanical Proph: N/A:VTE Prophy Ordered VTE Exclusion Pharmacological: Bleeding Risk Plan/Urinary Catheter Urinary Catheter: D/C [place] VS, I&O, 24H, Fishbone Vital Signs/I&O Vital Signs Date Time Temp Pulse Resp B/P (MAP) Pulse Ox O2 Delivery O2 Flow Rate FiO2 06/23/19 15:51 19 Room Air 06/23/19 12:01 97.9 106 146/86 (106) 96 06/23/19 04:00 2.0 I&O- Last 24 Hours up to 6 AM 06/23/19 06:00 Intake Total 4220 ml Output Total 4165 ml Balance 55 ml Laboratory Data 24H LABS Laboratory Tests 2 06/22/19 18:07: Estimated Mean Plasma Glucose 114H, Hemoglobin A1c 5.6 06/22/19 21:36: Bedside Glucose (Misc Panel) 101 06/23/19 07:47: Bedside Glucose (Misc Panel) 97 06/23/19 08:26: Nucleated Red Blood Cells % (auto) 0.0, Anion Gap 5L, Glomerular Filtration Rate > 60.0, Calcium Level 8.2L 06/23/19 11:36: Bedside Glucose (Misc Panel) 106H CBC/BMP Laboratory Tests 06/23/19 08:26 Eliecer Enriquez M.D. Jun 23, 2019 16:02
[2019-06-23] MEDS ORDERED: SLF 3 ML SYR IV PRN (16:15)
[2019-06-23] MEDS: MORPHINE 2 MG/ML 1ML VIAL (J2270) IV PRN ×2 (18:21→23:13)
[2019-06-23] MEDS: MIRTAZAPINE 15 MG TAB PO SCH (20:02)
[2019-06-23] MEDS: SLF 3 ML SYR IV SCH (21:34)
[2019-06-24] VITALS: BP 158/92
[2019-06-24 04:00] VITALS: BP 161/96
[2019-06-24] MEDS: PERCOCET 5MG/325MG TAB PO PRN ×3 (04:06→14:12)
[2019-06-24] MEDS: SLF 3 ML SYR IV SCH (05:24)
[2019-06-24 08:00] VITALS: BP 152/92
[2019-06-24 08:22] LABS: HEMATOCRIT 32.4 % (42.0-52.0); HEMOGLOBIN 10.6 g/dl (13.5-17.5); MEAN CORPUSCULAR HEMOGLOBIN 28.6 pg (27.0-33.0); MEAN CORPUSCULAR HGB CONC 32.7 g/dl (32.0-36.5); MEAN CORPUSCULAR VOLUME 87.6 fl (80.0-96.0); PLATELET COUNT, AUTOMATED 145 10^3/uL (150-450); WHITE BLOOD COUNT 6.9 10^3/uL (4.0-10.0)
[2019-06-24 08:42] LABS: BLOOD UREA NITROGEN 6 MG/DL (7-18); CALCIUM LEVEL 8.1 MG/DL (8.5-10.1); CARBON DIOXIDE LEVEL 32 MEQ/L (21-32); CHLORIDE LEVEL 107 MEQ/L (98-107); GLOMERULAR FILTRATION RATE > 60.0 (>56); GLUCOSE, FASTING 93 MG/DL (70-100); POTASSIUM SERUM 3.8 MEQ/L (3.5-5.1); SODIUM LEVEL 142 MEQ/L (136-145)
[2019-06-24] MEDS: PANTOPRAZOLE 40MG TAB (PROTONIX) PO SCH (09:19)
[2019-06-24] MEDS: ATORVASTATIN 20 MG TAB PO SCH (09:19)
[2019-06-24] MEDS: FLUoxetine 20 MG CAP PO SCH (09:20)
[2019-06-24] MEDS: DOCUSATE SODIUM 100 MG CAP PO SCH (09:20)
[2019-06-24] MEDS: GABAPENTIN 300 MG CAP PO SCH (09:20)
[2019-06-24] MEDS: FERROUS SULFATE 325MG TAB PO SCH (09:20)
--- NOTE | 2019-06-24 10:21 | IPNPDOC ---
Subjective Review oF Systems Chief Complaint The patient is a 53-year-old male admitted with a reason for visit of Renal Mass. Events since Last Encounter No acute events o/n. Noted more incisional pain w/ ambulation yesterday but controlled w/ percocet. Denies light-headedness w/ ambulation. Tolerating regular diet. Passing flatus. No f/c/ns. Objective Physical Examination General Exam: Alert, Cooperative, No Acute Distress ABDOMEN EXAM: Soft, Tenderness (mild incisional tenderness), Other (incisions clean/dry/intact) Skin Exam: Nl turgor and temperature Neuro Exam: Normal Speech Psych Exam: Mental status NL, Mood NL Vital Signs/I&O Vital Signs Date Time Temp Pulse Resp B/P (MAP) Pulse Ox O2 Delivery O2 Flow Rate FiO2 06/24/19 09:20 18 06/24/19 08:00 97.9 65 152/92 (112) 92 Room Air 06/23/19 04:00 2.0 I&O- Last 24 Hours up to 6 AM 06/24/19 05:59 Intake Total 1570 ml Output Total 3080 ml Balance -1510 ml Laboratory Data Labs 24H Laboratory Tests 2 06/23/19 11:36: Bedside Glucose (Misc Panel) 106H 06/23/19 20:05: Bedside Glucose (Misc Panel) 100 06/24/19 07:57: Nucleated Red Blood Cells % (auto) 0.0, Anion Gap 3L, Glomerular Filtration Rate > 60.0, Calcium Level 8.1L CBC/BMP Laboratory Tests 06/24/19 07:57 FSBS Laboratory Tests Test 06/23/19 11:36 06/23/19 20:05 Range/Units Bedside Glucose (Misc Panel) 106 100 70-105 MG/DL Assessment/Plan Date Seen The patient was seen on 06/24/19. Patient Summary This is a 53 y/o M POD4 s/p left robotic partial nephrectomy, POD3 s/p take back for left robotic renal exploration and control of bleeding from the partial nephrectomy bed. Hb stable. Good UOP. Cr 0.9. Plan/VTE VTE Prophylaxis Ordered?: Yes (SCDs TEDs) VTE Exclusion Mechanical Proph: N/A:VTE Prophy Ordered VTE Exclusion Pharmacological: Bleeding Risk Plan - percocet prn pain - stict I/Os - ambulate - SCDs when in bed - regular diet - plan discharge home today MAGALIS SERRANO MD Jun 24, 2019 10:21
[2019-06-24] MEDS ORDERED: DOCU100C16 PO (10:33)
[2019-06-24] MEDS ORDERED: PERCOCET PO (10:33)
[2019-06-24 12:00] VITALS: BP 161/93
--- NOTE | 2019-06-25 21:00 | DSES ---
DATE OF ADMISSION: 06/20/2019 DATE OF DISCHARGE: 06/24/2019 ADMISSION DIAGNOSIS: 1. Left renal neoplasm. DISCHARGE DIAGNOSES: 1. Left renal cell carcinoma, postoperative bleed. ADMITTING PHYSICIAN: Khalif Ugalde MD DISCHARGING PHYSICIAN: Khalif Ugalde MD PROCEDURES PERFORMED: Left robotic assisted laparoscopic partial nephrectomy on June 20, 2019, left robotic renal exploration and control of postoperative bleeding on June 21, 2019. HISTORY OF PRESENT ILLNESS: This is a 53-year-old male who was found to have an approximately 4 cm enhancing lesion of the lower pole of his kidney concerning for cancer. He underwent a left robotic partial nephrectomy on June 20, 2019 and was admitted to the hospital postoperatively. HOSPITALIZATION COURSE: The patient admitted to the hospital after undergoing a left robotic partial nephrectomy June 20, 2019. His surgery went without any complications. On postoperative day #1, after he begAn ambulating, he was found to be lightheaded and had a syncopal episode in the bathroom in his room. Also around this time, he was noted to have an increase in blood output from his John-Blake drain. This raised concern that he was bleeding from his partial nephrectomy bed. The rapid assessment team was called to assess him and packed red blood cells were typed and crossed. His hemoglobin was checked and was noted to be 9.4, which was down from about 13 earlier that morning. At this point, blood was emergently transfused and he was taken to interventional radiology with the goal to try to find the source and bleeding and try to embolize it. Unfortunately, the source of bleeding could not be identified and therefore nothing was embolized. After that point, he was brought to the operative room emergently for a left robotic renal exploration; and at this time, he was found to be bleeding from the upper aspect of his partial nephrectomy bed. It appeared that one of the sutures used to close the capsule of the kidney had pulled through, which lead to a slow bleed from that area; but with time, it built up enough to cause a drop a hemoglobin. During that procedure, a large amount of clot was removed and the capsule of the kidney was resutured; and once done with that procedure, there was no additional bleeding from the kidney. The patient remained stable throughout the surgery and in the recovery room. He was admitted to the intensive care unit (ICU) postoperatively and his blood counts remained stable in the intensive care unit (ICU). His hemoglobin level remained around 11.4 while there. He was kept bedrest the entire day the next day. He was tolerating a regular diet. The next day he was allowed to ambulate and he had no issues with lightheadedness and his vital signs remained stable. After watching him and allowing him to ambulate for an entire day, his labs were checked again the following day and his hemoglobin remained stable indicating no sign of active bleeding. His vital signs remained stable every day following his take back to the operating room. He had excellent urine output and his kidney function also was very good by the time of discharge. His creatinine was 0.9. Due to an initial bump in creatinine, his lisinopril was held by his family practice doctor and his baby aspirin was also held because of the bleeding. By June 24, 2019, he appeared to be in excellent condition, and was deemed ready for discharge home. He was discharged home with a plan for him to followup in the clinic in approximately 10 days. Will continue to hold his aspirin and the decision whether or not to hold the lisinopril will be depending on evaluation by the family practice team today. YAIR
== END 2019-06-24 14:59 | disposition home or self-care (01) | DRG 657 ==
LOC: M OR 09:54 → EEVIPCON 09:54 → M MSPAV 21:58 → M ICU 06-21 12:10 → M MSPAV 06-21 12:20 → M ICU 06-21 20:00 → M PCU 06-23 14:15
PROVIDERS: ADMIT Urology; ATTEND Urology
PROC: 0WJF4ZZ Inspection of Abdominal Wall, Percutaneous Endoscopic Approach (ICD-10-PCS; 2019-06-20)
PROC: 8E0W4CZ Robotic Assisted Procedure of Trunk Region, Percutaneous Endoscopic Approach (ICD-10-PCS; 2019-06-20)
PROC: 0TT14ZZ Resection of Left Kidney, Percutaneous Endoscopic Approach (ICD-10-PCS; principal; 2019-06-20 11:20)
PROC: 0W3J0ZZ Control Bleeding in Pelvic Cavity, Open Approach (ICD-10-PCS; 2019-06-21)
PROC: 30233N1 Transfusion of Nonautologous Red Blood Cells into Peripheral Vein, Percutaneous Approach (ICD-10-PCS; 2019-06-21)
PROC: 8E0W4CZ Robotic Assisted Procedure of Trunk Region, Percutaneous Endoscopic Approach (ICD-10-PCS; 2019-06-21)
DX: C64.2 Malignant neoplasm of left kidney, except renal pelvis (principal); N99.820 Postprocedural hemorrhage of a genitourinary system organ or structure following a genitourinary system procedure; D62 Acute posthemorrhagic anemia; N17.9 Acute kidney failure, unspecified; E87.2 Acidosis; N28.89 Other specified disorders of kidney and ureter; I25.10 Atherosclerotic heart disease of native coronary artery without angina pectoris; I25.2 Old myocardial infarction; Z86.73 Personal history of transient ischemic attack (TIA), and cerebral infarction without residual deficits; G47.33 Obstructive sleep apnea (adult) (pediatric); E53.8 Deficiency of other specified B group vitamins; F32.9 Major depressive disorder, single episode, unspecified; K21.9 Gastro-esophageal reflux disease without esophagitis; I11.9 Hypertensive heart disease without heart failure; Z95.0 Presence of cardiac pacemaker; D50.9 Iron deficiency anemia, unspecified; Z79.899 Other long term (current) drug therapy; Z79.82 Long term (current) use of aspirin; K20.9 Esophagitis, unspecified

== ENCOUNTER → 2019-07-04 | Outpatient (REF) | payer MEDICARE ==
[~2019-07-04] MED LIST changes: +DOCU100C16 PO; +PERCOCET PO
[2019-07-04 17:19] LABS: HEMATOCRIT 42.2 % (42.0-52.0); HEMOGLOBIN 13.3 g/dl (13.5-17.5); MEAN CORPUSCULAR HEMOGLOBIN 28.5 pg (27.0-33.0); MEAN CORPUSCULAR HGB CONC 31.5 g/dl (32.0-36.5); MEAN CORPUSCULAR VOLUME 90.4 fl (80.0-96.0); PLATELET COUNT, AUTOMATED 503 10^3/uL (150-450); RED BLOOD COUNT 4.67 10^6/uL (4.30-6.10); WHITE BLOOD COUNT 11.1 10^3/uL (4.0-10.0)
[2019-07-04 17:20] LABS: BLOOD UREA NITROGEN 7 MG/DL (7-18); CALCIUM LEVEL 8.9 MG/DL (8.5-10.1); CARBON DIOXIDE LEVEL 30 MEQ/L (21-32); CHLORIDE LEVEL 104 MEQ/L (98-107); CREATININE FOR GFR 1.09 MG/DL (0.70-1.30); GLOMERULAR FILTRATION RATE > 60.0 (>56); GLUCOSE, FASTING 54 MG/DL (70-100); POTASSIUM SERUM 4.8 MEQ/L (3.5-5.1); SODIUM LEVEL 139 MEQ/L (136-145)
== END ==
LOC: M SMT 16:07
PROVIDERS: ATTEND Urology
DX: C64.9 Malignant neoplasm of unspecified kidney, except renal pelvis (principal)

== ENCOUNTER → 2019-08-10 | Outpatient (REF) | payer MEDICARE ==
[~2019-08-10] MED LIST changes: +OMEP-172 PO; -OMEP20CA4 PO
[2019-08-10 13:18] LABS: HEMATOCRIT 40.6 % (42.0-52.0); HEMOGLOBIN 13.1 g/dl (13.5-17.5); MEAN CORPUSCULAR HEMOGLOBIN 27.7 pg (27.0-33.0); MEAN CORPUSCULAR HGB CONC 32.3 g/dl (32.0-36.5); MEAN CORPUSCULAR VOLUME 85.8 fl (80.0-96.0); PLATELET COUNT, AUTOMATED 260 10^3/uL (150-450); RED BLOOD COUNT 4.73 10^6/uL (4.30-6.10); WHITE BLOOD COUNT 5.6 10^3/uL (4.0-10.0)
== END ==
LOC: M LABSMT 10:56
PROVIDERS: ATTEND Urology
DX: C64.9 Malignant neoplasm of unspecified kidney, except renal pelvis (principal)

== ENCOUNTER → 2019-08-29 | Outpatient (REF) | payer MEDICARE ==
[~2019-08-29] MED LIST changes: -FLUO20CA19 PO; +FLUO20CA22 PO; -OMEP-172 PO; +OMEP1CAP73 PO
[2019-08-29 16:23] LABS: HEMATOCRIT 44.2 % (42.0-52.0); HEMOGLOBIN 13.7 g/dl (13.5-17.5); MEAN CORPUSCULAR HEMOGLOBIN 26.4 pg (27.0-33.0); MEAN CORPUSCULAR VOLUME 85.2 fl (80.0-96.0); PLATELET COUNT, AUTOMATED 207 10^3/uL (150-450); RED BLOOD COUNT 5.19 10^6/uL (4.30-6.10); WHITE BLOOD COUNT 5.5 10^3/uL (4.0-10.0)
[2019-08-29 16:59] LABS: ALBUMIN 3.5 GM/DL (3.2-5.2); ALT/SGPT 16 U/L (12-78); BILIRUBIN,TOTAL 0.4 MG/DL (0.2-1.0); BLOOD UREA NITROGEN 9 MG/DL (7-18); CALCIUM LEVEL 8.8 MG/DL (8.5-10.1); CARBON DIOXIDE LEVEL 30 MEQ/L (21-32); CHLORIDE LEVEL 106 MEQ/L (98-107); CHOLESTEROL LEVEL 116 MG/DL (<200); CHOLESTEROL RISK RATIO 2.761 (<5); CREATININE FOR GFR 1.09 MG/DL (0.70-1.30); FERRITIN 8 NG/ML (26-388); FREE T4 0.97 NG/DL (0.76-1.46); GLOMERULAR FILTRATION RATE > 60.0 (>56); GLUCOSE, FASTING 82 MG/DL (70-100); HDL CHOLESTEROL 42 MG/DL (>40); LDL CHOLESTEROL 53 MG/DL (<100); NON-HDL-C 74 MG/DL; SODIUM LEVEL 140 MEQ/L (136-145); TOTAL PROTEIN 6.4 GM/DL (6.4-8.2); TRIGLYCERIDES LEVEL 103 MG/DL (<150)
[2019-08-29 17:01] LABS: TOTAL 25(OH) VITAMIN D 15.7 NG/ML (30.0-100.0); VITAMIN B12 LEVEL 430 PG/ML (247-911)
== END ==
LOC: M SFHCADAM 11:48
PROVIDERS: ATTEND Family Medicine
DX: F43.21 Adjustment disorder with depressed mood (principal); I11.9 Hypertensive heart disease without heart failure; D50.9 Iron deficiency anemia, unspecified; E55.9 Vitamin D deficiency, unspecified; E78.5 Hyperlipidemia, unspecified; Z98.84 Bariatric surgery status
CPT/HCPCS: 80053; 80061; 82306; 82607; 82728; 84439; 84443; 85027; G0402

== ENCOUNTER → 2020-02-14 | Outpatient (CLI) | payer MEDICARE ==
[~2020-02-14] MED LIST changes: +ISOVUE-370 76% 100ML VIAL As Ordered ONE; +PANT40TA29 PO; -PANT40TA3 PO
[2020-02-14 12:17] LABS: BLOOD UREA NITROGEN 11 MG/DL (7-18); CALCIUM LEVEL 8.5 MG/DL (8.5-10.1); CARBON DIOXIDE LEVEL 23 MEQ/L (21-32); CHLORIDE LEVEL 110 MEQ/L (98-107); CREATININE FOR GFR 1.23 MG/DL (0.70-1.30); GLOMERULAR FILTRATION RATE > 60.0 (>56); GLUCOSE, FASTING 96 MG/DL (70-100); POTASSIUM SERUM 4.4 MEQ/L (3.5-5.1); SODIUM LEVEL 141 MEQ/L (136-145)
--- NOTE | 2020-02-15 01:31 | REP ---
REASON: Followup renal cell carcinoma. Latest prior for comparison 04/25/2019. CONTRAST: 100 mL [id number]. Since the last examination, the patient is status post partial left nephrectomy. There is no significant change in the lung bases. Precontrast-enhanced portion of examination shows hepatic and splenic densities to be within normal limits. There are no nephroliths or choleliths. Contrast-enhanced portion of the examination shows postoperative changes inferior pole left kidney without abnormal enhancement. The kidneys enhance normally bilaterally. The liver, gallbladder, spleen, pancreas, and adrenal glands are again seen to be within normal limits. There is an incidental fatty lesion in the left adrenal gland, status quo. The abdominal aorta and para-aortic regions are within normal limits. There is no para-aortic or retroperitoneal adenopathy. There is no free fluid or free air. The bowel loops and their mesenteries are within normal limits. Bone window technique throughout the examination shows the osseous structures to be stable and intact. IMPRESSION: Postoperative changes, as described above. There is no evidence of acute or recurrent disease. Electronically Signed by Kory Galeas DO 02/15/2020 08:09 A
== END ==
LOC: M RAD 10:55
PROVIDERS: ATTEND Urology
DX: Z85.528 Personal history of other malignant neoplasm of kidney (principal)
CPT/HCPCS: 36415; 74170; 80048; Q9967

== ENCOUNTER → 2021-11-04 | Outpatient (REF) | payer MEDICARE ==
[~2021-11-04] MED LIST changes: -ACET1TAB16 PO; +ACET300T48 PO; -CLIN150C14 PO; +CLIN150C17 PO; -DOXY100C PO; +DOXY100C3 PO; +GABA-282 PO; -GABA-843 PO; -ISOVUE-370 76% 100ML VIAL As Ordered ONE; -LISI-538 PO; +LISI20TA33 PO; -PROC10TA4 PO; +PROC10TA5 PO
[2021-11-04 17:55] LABS: BASO # 0.1 10^3/uL (0.0-0.2); BASO % 0.8 % (0.0-1.0); EOS # 0.1 10^3/uL (0.0-0.5); HEMATOCRIT 43.9 % (42.0-52.0); LYMPH # 1.5 10^3/uL (1.5-5.0); LYMPH % 22.3 % (24.0-44.0); MEAN CORPUSCULAR HEMOGLOBIN 26.3 pg (27.0-33.0); MEAN CORPUSCULAR HGB CONC 34.2 g/dl (32.0-36.5); MONO # 0.7 10^3/uL (0.0-0.8); MONO % 10.1 % (2.0-8.0); NEUTROPHILS # 4.2 10^3/uL (1.5-8.5); NEUTROPHILS % 64.5 % (36.0-66.0); PLATELET COUNT, AUTOMATED 317 10^3/uL (150-450); WHITE BLOOD COUNT 6.6 10^3/uL (4.0-10.0)
[2021-11-04 18:25] LABS: ALBUMIN 4.2 GM/DL (3.2-5.2); ALT/SGPT 24 U/L (12-78); BLOOD UREA NITROGEN 17 MG/DL (7-18); CALCIUM LEVEL 8.8 MG/DL (8.5-10.1); CARBON DIOXIDE LEVEL 25 MEQ/L (21-32); CHLORIDE LEVEL 97 MEQ/L (98-107); CHOLESTEROL LEVEL 96 MG/DL (<200); CREATININE FOR GFR 1.01 MG/DL (0.70-1.30); FERRITIN 13 NG/ML (26-388); FREE T4 1.86 NG/DL (0.76-1.46); GLOMERULAR FILTRATION RATE > 60.0 (>56); GLUCOSE, FASTING 93 MG/DL (70-100); HDL CHOLESTEROL 40 MG/DL (>40); IRON (FE) 61 UG/DL (65-175); LDL CHOLESTEROL 41 MG/DL (<100); NON-HDL-C 56 MG/DL; PERCENT SATURATION 16.2 % (19.7-50.0); POTASSIUM SERUM 4.1 MEQ/L (3.5-5.1); SODIUM LEVEL 128 MEQ/L (136-145); TOTAL IRON BINDING CAPACITY 376 UG/DL (250-450); TOTAL PROTEIN 7.2 GM/DL (6.4-8.2); TRIGLYCERIDES LEVEL 74 MG/DL (<150)
[2021-11-04 18:26] LABS: FOLATE 6.9 NG/ML; TOTAL 25(OH) VITAMIN D 15.2 NG/ML (30.0-100.0); VITAMIN B12 LEVEL 615 PG/ML
[2021-11-04 18:34] LABS: HEMOGLOBIN A1c 5.6 %
== END ==
LOC: M SFHCADAM 15:16
PROVIDERS: ATTEND Physician Assistant
DX: J40 Bronchitis, not specified as acute or chronic (principal); R63.4 Abnormal weight loss; I11.9 Hypertensive heart disease without heart failure; E55.9 Vitamin D deficiency, unspecified; I25.10 Atherosclerotic heart disease of native coronary artery without angina pectoris; Z85.528 Personal history of other malignant neoplasm of kidney; Z98.84 Bariatric surgery status; Z79.899 Other long term (current) drug therapy

== ENCOUNTER → 2022-05-21 | Outpatient (REF) | payer MEDICARE ==
[~2022-05-21] MED LIST changes: +CHOL400T8 PO; +ERGO500029 PO
[2022-05-21 14:05] LABS: HEMATOCRIT 44.9 % (42.0-52.0); HEMOGLOBIN 14.6 g/dl (13.5-17.5); MEAN CORPUSCULAR HEMOGLOBIN 28.4 pg (27.0-33.0); MEAN CORPUSCULAR HGB CONC 32.5 g/dl (32.0-36.5); MEAN CORPUSCULAR VOLUME 87.4 fl (80.0-96.0); PLATELET COUNT, AUTOMATED 269 10^3/uL (150-450); RED BLOOD COUNT 5.14 10^6/uL (4.30-6.10); WHITE BLOOD COUNT 5.8 10^3/uL (4.0-10.0)
[2022-05-21 15:03] LABS: ALBUMIN 3.5 GM/DL (3.2-5.2); ALT/SGPT 26 U/L (12-78); BILIRUBIN,TOTAL 0.6 MG/DL (0.2-1.0); BLOOD UREA NITROGEN 9 MG/DL (7-18); CALCIUM LEVEL 8.5 MG/DL (8.5-10.1); CARBON DIOXIDE LEVEL 31 MEQ/L (21-32); CHLORIDE LEVEL 103 MEQ/L (98-107); FERRITIN 8 NG/ML (26-388); FREE T4 0.88 NG/DL (0.76-1.46); GLOMERULAR FILTRATION RATE > 60.0 (>56); GLUCOSE, FASTING 96 MG/DL (70-100); IRON (FE) 117 UG/DL (65-175); PERCENT SATURATION 32.4 % (19.7-50.0); POTASSIUM SERUM 4.9 MEQ/L (3.5-5.1); SODIUM LEVEL 137 MEQ/L (136-145); TOTAL IRON BINDING CAPACITY 361 UG/DL (250-450); TOTAL PROTEIN 6.2 GM/DL (6.4-8.2)
[2022-05-21 16:11] LABS: TOTAL 25(OH) VITAMIN D 54.5 NG/ML (30.0-100.0)
== END ==
LOC: M SFHCADAM 10:55
PROVIDERS: ATTEND Family Medicine
DX: D50.9 Iron deficiency anemia, unspecified (principal); E55.9 Vitamin D deficiency, unspecified; F43.21 Adjustment disorder with depressed mood; I11.9 Hypertensive heart disease without heart failure; Z79.899 Other long term (current) drug therapy

== ENCOUNTER → 2022-06-04 | Outpatient (CLI) | payer MEDICARE | LOC: M LABSMTC 11:11 | PROVIDERS: ATTEND Anesthesiology | DX: Z01.812 Encounter for preprocedural laboratory examination (principal); Z20.822 Contact with and (suspected) exposure to COVID-19 ==

== ENCOUNTER 2022-06-08 10:12 | Day surgery (SDC) | payer MEDICARE ==
[~2022-06-08] VITALS: Ht 172.7 cm; Wt 92.7 kg
[~2022-06-08 10:12] MED LIST changes: +NS 1,000 ML IV ONE
[2022-06-08] MEDS ORDERED: fentaNYL 100 MCG/2 ML INJECTION As Ordered ONE (11:07)
[2022-06-08] MEDS ORDERED: LIDOCAINE 2% 100MG/5ML SDV (FOR ANES.) As Ordered ONE (11:18)
[2022-06-08] MEDS ORDERED: propofoL 200 MG/20 ML VIAL As Ordered ONE ×3 (11:18→11:52)
[2022-06-08] MEDS ORDERED: hydrALAZINE 20MG/ML 1ML VIAL (J0360 PER 20MG) As Ordered ONE (11:21)
[2022-06-08 12:14] VITALS: BP 147/89
== END 2022-06-08 12:41 | disposition home or self-care (01) ==
LOC: M OPP 10:12
PROVIDERS: ATTEND Internal Medicine Gastroenterology
DX: D12.7 Benign neoplasm of rectosigmoid junction (principal); K64.4 Residual hemorrhoidal skin tags; K64.8 Other hemorrhoids; D50.9 Iron deficiency anemia, unspecified; K31.A0 Gastric intestinal metaplasia, unspecified; Z98.0 Intestinal bypass and anastomosis status; Z79.02 Long term (current) use of antithrombotics/antiplatelets; Z79.899 Other long term (current) drug therapy; Z88.5 Allergy status to narcotic agent; Z88.8 Allergy status to other drugs, medicaments and biological substances; G47.30 Sleep apnea, unspecified; I25.2 Old myocardial infarction; Z86.14 Personal history of Methicillin resistant Staphylococcus aureus infection; Z95.0 Presence of cardiac pacemaker; Z98.84 Bariatric surgery status; Z87.891 Personal history of nicotine dependence
CPT/HCPCS: 43239; 45385; 88305; J0360; J3010

== ENCOUNTER 2022-06-24 14:57 | Observation (INO) | payer MEDICARE ==
[~2022-06-24] VITALS: Ht 172.7 cm; Wt 98.3 kg
[~2022-06-24 14:57] MED LIST changes: -NS 1,000 ML IV ONE
[2022-06-24 15:15] VITALS: BP 185/95
[2022-06-24 15:30] VITALS: BP 200/100
[2022-06-24 15:45] VITALS: BP 201/102
[2022-06-24 16:00] VITALS: BP 174/95
[2022-06-24 16:24] LABS: BASO # 0.1 10^3/uL (0.0-0.2); BASO % 0.5 % (0.0-1.0); EOS # 0.2 10^3/uL (0.0-0.5); EOS % 1.4 % (0.0-3.0); HEMATOCRIT 42.2 % (42.0-52.0); HEMOGLOBIN 14.1 g/dl (13.5-17.5); LYMPH % 8.1 % (24.0-44.0); MEAN CORPUSCULAR HEMOGLOBIN 28.8 pg (27.0-33.0); MEAN CORPUSCULAR HGB CONC 33.4 g/dl (32.0-36.5); MEAN CORPUSCULAR VOLUME 86.1 fl (80.0-96.0); MONO % 7.5 % (2.0-8.0); NEUTROPHILS # 10.5 10^3/uL (1.5-8.5); NEUTROPHILS % 82.1 % (36.0-66.0); PLATELET COUNT, AUTOMATED 236 10^3/uL (150-450); WHITE BLOOD COUNT 12.7 10^3/uL (4.0-10.0)
[2022-06-24] MEDS ORDERED: HYDR12.55 PO (16:24)
[2022-06-24 16:35] LABS: INR 1.01; PROTHROMBIN TIME 13.5 SECONDS (12.5-14.5)
[2022-06-24 16:46] LABS: CK-MB VALUE MASS 3.2 NG/ML (<3.6); MB/CK RELATIVE INDEX 1.75 (< OR =4)
[2022-06-24] MEDS ORDERED: ISOVUE-370 76% 100ML VIAL As Ordered ONE (17:29)
[2022-06-24] MEDS ORDERED: CHLORTHALIDONE 25 MG TAB PO ONE (18:40)
[2022-06-24] MEDS ORDERED: LOSARTAN 50MG TABLET PO ONE (18:40)
[2022-06-24] MEDS ORDERED: B-12100010 PO (18:46)
[2022-06-24] MEDS ORDERED: VITA100093 PO (18:46)
[2022-06-24] MEDS ORDERED: FERR325T3 PO (18:46)
[2022-06-24] MEDS ORDERED: VITA500C24 PO (18:46)
[2022-06-24] MEDS ORDERED: HOME MED LIST COMPLETE! XX SCH (18:50)
[2022-06-24 19:30] LABS: RSV AMPLIFICATION NEGATIVE (NEGATIVE)
[2022-06-24 20:46] VITALS: BP 173/99
[2022-06-24] MEDS ORDERED: ATORVASTATIN 20 MG TAB PO SCH (21:00)
[2022-06-24] MEDS ORDERED: ASPIRIN 325 MG TAB PO ONE (21:10)
[2022-06-24] MEDS ORDERED: MIRTAZAPINE 15 MG TAB PO SCH (23:45)
[2022-06-25] VITALS: BP 169/95
[2022-06-25] MEDS ORDERED: cloNIDine 0.1MG TABLET PO SCH ×2
[2022-06-25] MEDS ORDERED: ASPIRIN 81MG ENTERIC TABLET PO SCH
[2022-06-25 04:00] VITALS: BP 151/82
[2022-06-25 05:23] LABS: BASO # 0.1 10^3/uL (0.0-0.2); BASO % 0.9 % (0.0-1.0); EOS # 0.3 10^3/uL (0.0-0.5); HEMATOCRIT 41.8 % (42.0-52.0); HEMOGLOBIN 14.1 g/dl (13.5-17.5); LYMPH # 1.4 10^3/uL (1.5-5.0); LYMPH % 21.1 % (24.0-44.0); MEAN CORPUSCULAR HEMOGLOBIN 28.5 pg (27.0-33.0); MEAN CORPUSCULAR HGB CONC 33.7 g/dl (32.0-36.5); MEAN CORPUSCULAR VOLUME 84.6 fl (80.0-96.0); MONO # 0.6 10^3/uL (0.0-0.8); MONO % 9.4 % (2.0-8.0); NEUTROPHILS # 4.4 10^3/uL (1.5-8.5); NEUTROPHILS % 64.5 % (36.0-66.0); PLATELET COUNT, AUTOMATED 240 10^3/uL (150-450); RED BLOOD COUNT 4.94 10^6/uL (4.30-6.10); WHITE BLOOD COUNT 6.8 10^3/uL (4.0-10.0)
[2022-06-25 06:02] LABS: BLOOD UREA NITROGEN 11 MG/DL (9-23); CALCIUM LEVEL 8.4 MG/DL (8.5-10.1); CARBON DIOXIDE LEVEL 27 MMOL/L (20-31); CHLORIDE LEVEL 98 MMOL/L (98-107); CHOLESTEROL LEVEL 88 MG/DL (<200); CHOLESTEROL RISK RATIO 1.93 (<5); CREATININE FOR GFR 0.91 MG/DL (0.70-1.30); GLOMERULAR FILTRATION RATE > 60.0 (>56); GLUCOSE, FASTING 100 MG/DL (60-100); HDL CHOLESTEROL 45.4 MG/DL (>40); MAGNESIUM LEVEL 1.8 MG/DL (1.8-2.4); NON-HDL-C 43 MG/DL; PHOSPHORUS LEVEL 3.5 MG/DL (2.5-4.9); POTASSIUM SERUM 3.6 MMOL/L (3.5-5.1); PTH INTACT 133.7 PG/ML (18.5-88.0); SODIUM LEVEL 134 MMOL/L (136-145); TRIGLYCERIDES LEVEL 43 MG/DL (<150)
[2022-06-25 06:04] LABS: ERYTHROCYTE SEDIMENTATION RATE 2 mm/hr (0-20)
[2022-06-25 08:00] VITALS: BP 164/102
[2022-06-25] MEDS ORDERED: CHLO25TA PO (08:15)
[2022-06-25] MEDS ORDERED: SELF1KIT MC (08:15)
[2022-06-25] MEDS ORDERED: ASPI81CH8 PO (08:15)
[2022-06-25] MEDS ORDERED: COZA50TA PO (08:15)
[2022-06-25] MEDS ORDERED: DOCUSATE SODIUM 100MG CAPSULE PO PRN (08:15)
[2022-06-25] MEDS ORDERED: CYANOCOBALAMIN 500 MCG TAB PO SCH (09:00)
[2022-06-25] MEDS ORDERED: ASCORBIC ACID 500 MG TAB PO SCH (09:00)
[2022-06-25] MEDS ORDERED: ASPIRIN 81MG CHEW TABLET PO SCH (09:00)
[2022-06-25] MEDS ORDERED: FERROUS SULFATE 325MG TAB PO SCH (09:00)
[2022-06-25] MEDS ORDERED: FLUBLOK(EGG FREE)(QUAD)INFLUENZA VACC 0.5ML SYRINGE 18YRS & OLDER IM.IMMUN ONE (09:00)
[2022-06-25] MEDS ORDERED: FLUoxetine 20MG CAP PO SCH (09:00)
[2022-06-25] MEDS ORDERED: ENOXAPARIN 40MG/0.4ML SYRINGE (J1650 PER 10MG) SC SCH (09:00)
[2022-06-25] MEDS ORDERED: PANTOPRAZOLE 40MG TAB (PROTONIX) PO SCH (09:00)
[2022-06-25] MEDS ORDERED: CHLORTHALIDONE 25 MG TAB PO SCH (09:00)
[2022-06-25] MEDS ORDERED: hydroCHLOROthiazide 12.5 MG CAPSULE PO SCH (09:00)
[2022-06-25] MEDS ORDERED: CALCIUM GLUCONATE 1,000 MG in D5W MINI-BAG PLUS 100 ML IV ONE (09:00)
[2022-06-25] MEDS ORDERED: MAG SULF 1GM/100ML (MAG RUN) 1 GM in IV 1 EA IV ONE (10:00)
[2022-06-25] MEDS ORDERED: AMLO10TA PO (10:40)
[2022-06-25 13:00] VITALS: BP 150/98
[2022-06-25] MEDS ORDERED: LOSARTAN 50MG TABLET PO SCH ×2 (13:00)
[2022-06-25] MEDS ORDERED: CLON0.3T PO (14:34)
[2022-06-25] MEDS ORDERED: cloNIDine 0.1MG TABLET PO ONE (14:35)
[2022-06-25 15:37] VITALS: BP 150/98
[2022-06-25 16:00] VITALS: BP 112/68
[2022-06-27 18:07] LABS: ANA (HEP2) Negative (.)
== END 2022-06-25 18:46 | disposition home or self-care (01) ==
LOC: M ED 14:57 → M ED INP 18:44 → ENRESERV 19:41 → M PCU 20:46
PROVIDERS: ADMIT Family Medicine; ATTEND Family Medicine
DX: I67.4 Hypertensive encephalopathy (principal); G45.9 Transient cerebral ischemic attack, unspecified; M25.512 Pain in left shoulder; I25.10 Atherosclerotic heart disease of native coronary artery without angina pectoris; I10 Essential (primary) hypertension; I25.2 Old myocardial infarction; Z98.61 Coronary angioplasty status; E87.1 Hypo-osmolality and hyponatremia; E83.51 Hypocalcemia; E87.8 Other disorders of electrolyte and fluid balance, not elsewhere classified; Z85.528 Personal history of other malignant neoplasm of kidney; Z86.73 Personal history of transient ischemic attack (TIA), and cerebral infarction without residual deficits; Z95.0 Presence of cardiac pacemaker; Z87.891 Personal history of nicotine dependence; F12.10 Cannabis abuse, uncomplicated; K21.9 Gastro-esophageal reflux disease without esophagitis; Z79.82 Long term (current) use of aspirin; Z79.899 Other long term (current) drug therapy; Z88.8 Allergy status to other drugs, medicaments and biological substances; Z98.84 Bariatric surgery status; F41.9 Anxiety disorder, unspecified; Z23 Encounter for immunization
CPT/HCPCS: 36415; 70450; 70496; 70498; 71045; 73030; 80047; 80048; 80061; 82330; 82550; 82553; 83735; 83970; 84100; 84484; 85025; 85610; 85652; 85730; 86038; 86850; 86900; 86901; 87631; 90682; 93005; 93041; 93306; 94760; 96372; 96374; 96375; 99285; G0008; G0378; J0610; J1650; J3475; Q9967

== ENCOUNTER → 2022-08-11 | Outpatient (CLI) | payer MEDICARE, SELFPAY ==
[~2022-08-11] MED LIST changes: +AMLO10TA PO; +ASPI81CH8 PO; +B-12100010 PO; +CHLO25TA PO; +CLON0.3T PO; +COZA50TA PO; +HYDR12.55 PO; +SELF1KIT MC; +VITA100093 PO; +VITA500C24 PO
[2022-08-11 10:43] LABS: ALBUMIN 3.6 G/DL (3.2-5.2); BLOOD UREA NITROGEN 12 MG/DL (9-23); CALCIUM LEVEL 8.6 MG/DL (8.5-10.1); CARBON DIOXIDE LEVEL 29 MMOL/L (20-31); CHLORIDE LEVEL 92 MMOL/L (98-107); CREATININE FOR GFR 0.87 MG/DL (0.70-1.30); GLOMERULAR FILTRATION RATE > 60.0 (>56); GLUCOSE, FASTING 44 MG/DL (60-100); PHOSPHORUS LEVEL 2.8 MG/DL (2.5-4.9); POTASSIUM SERUM 4.2 MMOL/L (3.5-5.1); SODIUM LEVEL 128 MMOL/L (136-145)
[2022-08-11 10:44] LABS: CREATININE, URINE 69.1 MG/DL; MALB URINE SIEMENS < 3.0 MG/DL; MAU/CREAT RATIO 4.3 MCG/MG (0.0-30.0)
== END ==
LOC: M LAB 09:06
PROVIDERS: ATTEND Internal Medicine Cardiovascular Disease
DX: I10 Essential (primary) hypertension (principal); R23.2 Flushing

== ENCOUNTER → 2022-08-12 | Outpatient (CLI) | payer MEDICARE | LOC: M RAD 09:32 | PROVIDERS: ATTEND Internal Medicine Cardiovascular Disease | DX: I10 Essential (primary) hypertension (principal); R23.2 Flushing ==

== ENCOUNTER → 2022-10-06 | Outpatient (REF) | payer MEDICARE ==
[2022-10-06 13:59] LABS: BLOOD UREA NITROGEN 11 MG/DL (9-23); CALCIUM LEVEL 8.8 MG/DL (8.5-10.1); CARBON DIOXIDE LEVEL 26 MMOL/L (20-31); CHLORIDE LEVEL 90 MMOL/L (98-107); CORTISOL AM 8.8 UG/DL (4.3-22.4); CREATININE FOR GFR 1.13 MG/DL (0.70-1.30); GLOMERULAR FILTRATION RATE > 60.0 (>56); GLUCOSE, FASTING 182 MG/DL (60-100); POTASSIUM SERUM 3.6 MMOL/L (3.5-5.1); SODIUM LEVEL 127 MMOL/L (136-145)
== END ==
LOC: M LABDRWAD 12:49
PROVIDERS: ATTEND Internal Medicine Cardiovascular Disease
DX: I10 Essential (primary) hypertension (principal)

== ENCOUNTER → 2022-11-17 | Outpatient (CLI) | payer MEDICARE | LOC: M LAB 08:49 | PROVIDERS: ATTEND Internal Medicine Endocrinology, Diabetes & Metabolism | DX: E27.8 Other specified disorders of adrenal gland (principal) ==

== ENCOUNTER → 2022-11-27 | Outpatient (CLI) | payer MEDICARE ==
[~2022-11-27] MED LIST changes: -COZA50TA PO; +LOSA-528 PO
== END ==
LOC: M LABDRWAD 07:54
PROVIDERS: ATTEND Internal Medicine Endocrinology, Diabetes & Metabolism
DX: E27.8 Other specified disorders of adrenal gland (principal)

== ENCOUNTER → 2022-11-30 | Outpatient (REF) | payer MEDICARE | LOC: M LAB REF 09:46 | PROVIDERS: ATTEND Internal Medicine Endocrinology, Diabetes & Metabolism | DX: E27.8 Other specified disorders of adrenal gland (principal) ==

== ENCOUNTER → 2022-12-08 | Outpatient (CLI) | payer MEDICARE | LOC: M LAB 15:29 | PROVIDERS: ATTEND Internal Medicine | DX: E27.8 Other specified disorders of adrenal gland (principal) ==

== ENCOUNTER → 2022-12-10 | Outpatient (REF) | payer MEDICARE | LOC: M LAB REF 12:14 | PROVIDERS: ATTEND Nurse Practitioner Family | DX: E27.8 Other specified disorders of adrenal gland (principal) ==

== ENCOUNTER → 2022-12-29 | Outpatient (REF) | payer MEDICARE ==
[2022-12-29 14:03] LABS: BLOOD UREA NITROGEN 24 MG/DL (9-23); CALCIUM LEVEL 8.4 MG/DL (8.5-10.1); CARBON DIOXIDE LEVEL 24 MMOL/L (20-31); CHLORIDE LEVEL 90 MMOL/L (98-107); CREATININE FOR GFR 1.29 MG/DL (0.70-1.30); GLOMERULAR FILTRATION RATE > 60.0 (>56); GLUCOSE, FASTING 84 MG/DL (60-100); POTASSIUM SERUM 3.4 MMOL/L (3.5-5.1); SODIUM LEVEL 127 MMOL/L (136-145)
== END ==
LOC: M LABDRWAD 12:44
PROVIDERS: ATTEND Internal Medicine Cardiovascular Disease
DX: E87.1 Hypo-osmolality and hyponatremia (principal); I10 Essential (primary) hypertension

== ENCOUNTER → 2023-02-26 | Outpatient (REF) | payer MEDICARE ==
[2023-02-26 13:10] LABS: HEMOGLOBIN 13.3 g/dl (13.5-17.5); MEAN CORPUSCULAR HEMOGLOBIN 29.9 pg (27.0-33.0); MEAN CORPUSCULAR VOLUME 85.4 fl (80.0-96.0); PLATELET COUNT, AUTOMATED 329 10^3/uL (150-450); RED BLOOD COUNT 4.45 10^6/uL (4.30-6.10); WHITE BLOOD COUNT 9.3 10^3/uL (4.0-10.0)
[2023-02-26 13:34] LABS: OSMOLALITY SERUM 263 MOSM/KG (275-295)
[2023-02-26 13:40] LABS: ALBUMIN 4.3 G/DL (3.2-5.2); ALKALINE PHOSPHATASE 88 U/L (46-116); ALT/SGPT 22 U/L (7.0-40); AST/SGOT 23 U/L (<34); BILIRUBIN,TOTAL 1.2 MG/DL (0.3-1.2); BLOOD UREA NITROGEN 23 MG/DL (9-23); CALCIUM LEVEL 8.9 MG/DL (8.5-10.1); CARBON DIOXIDE LEVEL 24 MMOL/L (20-31); CHLORIDE LEVEL 89 MMOL/L (98-107); CREATININE FOR GFR 0.93 MG/DL (0.70-1.30); GLOMERULAR FILTRATION RATE > 60.0 (>56); GLUCOSE, FASTING 96 MG/DL (60-100); POTASSIUM SERUM 4.8 MMOL/L (3.5-5.1); SODIUM LEVEL 122 MMOL/L (136-145); THYROID STIMULATING HORMONE 1.223 uIU/ML (0.55-4.78); TOTAL PROTEIN 6.7 G/DL (5.7-8.2)
== END ==
LOC: M SFHCADAM 08:59
PROVIDERS: ATTEND Family Medicine
DX: E87.1 Hypo-osmolality and hyponatremia (principal); Z98.84 Bariatric surgery status; F43.22 Adjustment disorder with anxiety

== ENCOUNTER → 2023-03-30 | Outpatient (CLI) | payer MEDICARE | LOC: M RAD 11:55 → M LAB 11:55 | PROVIDERS: ATTEND Urology | DX: Z85.528 Personal history of other malignant neoplasm of kidney (principal); Z12.5 Encounter for screening for malignant neoplasm of prostate | CPT/HCPCS: 36415; 71046; G0103 ==

== ENCOUNTER → 2023-04-08 | Outpatient (REF) | payer MEDICARE ==
[2023-04-08 13:38] LABS: BLOOD UREA NITROGEN 22 MG/DL (9-23); CALCIUM LEVEL 9.2 MG/DL (8.5-10.1); CARBON DIOXIDE LEVEL 30 MMOL/L (20-31); CHLORIDE LEVEL 98 MMOL/L (98-107); CREATININE FOR GFR 0.89 MG/DL (0.70-1.30); GLOMERULAR FILTRATION RATE > 60.0 (>56); GLUCOSE, FASTING 102 MG/DL (60-100); OSMOLALITY SERUM 284 MOSM/KG (275-295); POTASSIUM SERUM 4.7 MMOL/L (3.5-5.1); SODIUM LEVEL 132 MMOL/L (136-145)
== END ==
LOC: M SFHCADAM 08:31
PROVIDERS: ATTEND Family Medicine
DX: E87.1 Hypo-osmolality and hyponatremia (principal)

== ENCOUNTER → 2023-04-14 | Outpatient (CLI) | payer MEDICARE ==
[~2023-04-14] MED LIST changes: +ISOVUE-370 76% 100ML VIAL As Ordered ONE
== END ==
LOC: M RAD 14:31
PROVIDERS: ATTEND Urology
DX: Z85.528 Personal history of other malignant neoplasm of kidney (principal)
CPT/HCPCS: 74170; Q9967

== ENCOUNTER → 2023-07-20 | Outpatient (REF) | payer MEDICARE ==
[~2023-07-20] MED LIST changes: -ISOVUE-370 76% 100ML VIAL As Ordered ONE
[2023-07-20 15:01] LABS: HEMOGLOBIN 14.4 g/dl (13.5-17.5); MEAN CORPUSCULAR HEMOGLOBIN 29.9 pg (27.0-33.0); MEAN CORPUSCULAR HGB CONC 34.3 g/dl (32.0-36.5); MEAN CORPUSCULAR VOLUME 87.3 fl (80.0-96.0); PLATELET COUNT, AUTOMATED 268 10^3/uL (150-450); RED BLOOD COUNT 4.81 10^6/uL (4.30-6.10); WHITE BLOOD COUNT 5.8 10^3/uL (4.0-10.0)
[2023-07-20 15:08] LABS: THYROID STIMULATING HORMONE 2.005 uIU/ML (0.55-4.78)
[2023-07-20 15:09] LABS: FERRITIN 20.7 NG/ML (10.5-307.3); FREE T4 1.05 NG/DL (0.89-1.76)
[2023-07-20 15:10] LABS: ALBUMIN 4.1 G/DL (3.2-5.2); ALKALINE PHOSPHATASE 68 U/L (46-116); ALT/SGPT 28 U/L (7.0-40); AST/SGOT 22 U/L (<34); BILIRUBIN,TOTAL 0.6 MG/DL (0.3-1.2); BLOOD UREA NITROGEN 15 MG/DL (9-23); CALCIUM LEVEL 9.7 MG/DL (8.5-10.1); CARBON DIOXIDE LEVEL 29 MMOL/L (20-31); CHLORIDE LEVEL 92 MMOL/L (98-107); CHOLESTEROL LEVEL 112 MG/DL (<200); CHOLESTEROL RISK RATIO 2.23 (<5); CREATININE FOR GFR 0.85 MG/DL (0.70-1.30); GLOMERULAR FILTRATION RATE > 60.0 (>56); GLUCOSE, FASTING 104 MG/DL (60-100); HDL CHOLESTEROL 50.2 MG/DL (>40); LDL CHOLESTEROL 49.4 MG/DL (<100); NON-HDL-C 61.8 MG/DL; POTASSIUM SERUM 4.9 MMOL/L (3.5-5.1); SODIUM LEVEL 127 MMOL/L (136-145); TOTAL PROTEIN 6.3 G/DL (5.7-8.2); TRIGLYCERIDES LEVEL 62 MG/DL (<150); VITAMIN B12 LEVEL 912 PG/ML (211-911)
[2023-07-20 15:13] LABS: FOLATE 20.23 NG/ML (>5.4)
[2023-07-20 15:16] LABS: OSMOLALITY SERUM 264 MOSM/KG (275-295)
[2023-07-20 15:22] LABS: HEMOGLOBIN A1c 5.6 % (4.0-6.0)
== END ==
LOC: M SFHCADAM 09:00
PROVIDERS: ATTEND Family Medicine
DX: E87.1 Hypo-osmolality and hyponatremia (principal); Z13.1 Encounter for screening for diabetes mellitus; Z98.84 Bariatric surgery status; E78.5 Hyperlipidemia, unspecified; R63.5 Abnormal weight gain; Z85.528 Personal history of other malignant neoplasm of kidney; Z79.899 Other long term (current) drug therapy; Z86.39 Personal history of other endocrine, nutritional and metabolic disease

== ENCOUNTER 2023-09-15 18:55 | Inpatient (IN) | payer MEDICAID, MEDICARE ==
[~2023-09-15] VITALS: Ht 170.2 cm; Wt 85.0 kg
[2023-09-15 20:05] LABS: HEMOGLOBIN 14.8 g/dl (13.5-17.5); MEAN CORPUSCULAR HEMOGLOBIN 30.1 pg (27.0-33.0); MEAN CORPUSCULAR HGB CONC 36.1 g/dl (32.0-36.5); MEAN CORPUSCULAR VOLUME 83.5 fl (80.0-96.0); PLATELET COUNT, AUTOMATED 322 10^3/uL (150-450); RED BLOOD COUNT 4.91 10^6/uL (4.30-6.10); WHITE BLOOD COUNT 12.3 10^3/uL (4.0-10.0)
[2023-09-15 20:19] LABS: AMPHETAMINES LEVEL URINE NEGATIVE (NEGATIVE); BARBITURATES URINE NEGATIVE (NEGATIVE); BENZODIAZEPINES URINE NEGATIVE (NEGATIVE); COCAINE METABOLITE URINE NEGATIVE (NEGATIVE); METHADONE URINE NEGATIVE (NEGATIVE); OPIATES URINE NEGATIVE (NEGATIVE); PHENCYCLIDINE URINE NEGATIVE (NEGATIVE)
[2023-09-15 20:21] LABS: ETHYL ALCOHOL (ETHANOL) < 0.003 % (0.000-0.010)
[2023-09-15 20:23] LABS: SALICYLATE LEVEL < 3.0 MG/DL (<30)
[2023-09-15 20:25] LABS: CANNABINOIDS URINE POSITIVE (NEGATIVE)
[2023-09-15 20:30] LABS: ALBUMIN 4.4 G/DL (3.2-5.2); ALKALINE PHOSPHATASE 78 U/L (46-116); ALT/SGPT 29 U/L (7.0-40); AST/SGOT 29 U/L (<34); BILIRUBIN,DIRECT 0.5 MG/DL (<0.4); BLOOD UREA NITROGEN 13 MG/DL (9-23); CALCIUM LEVEL 9.3 MG/DL (8.5-10.1); CARBON DIOXIDE LEVEL 21 MMOL/L (20-31); CHLORIDE LEVEL 85 MMOL/L (98-107); CREATININE FOR GFR 0.76 MG/DL (0.70-1.30); GLOMERULAR FILTRATION RATE > 60.0 (>56); GLUCOSE, FASTING 181 MG/DL (60-100); POTASSIUM SERUM 3.6 MMOL/L (3.5-5.1); SODIUM LEVEL 118 MMOL/L (136-145)
[2023-09-15] MEDS ORDERED: MED REC CURRENTLY UNOBTAINABLE XX SCH (21:40)
[2023-09-15 21:51] LABS: SODIUM,RANDOM URINE 36 MMOL/L
[2023-09-15 22:01] LABS: CREATININE,RANDOM URINE 60.1 MG/DL
[2023-09-15] MEDS: NS 1,000 ML IV ONE (22:39)
[2023-09-15] MEDS: NS 1,000 ML IV SCH (22:40)
[2023-09-15] MEDS: POTASSIUM CHLORIDE 10MEQ SR TABLET PO ONE (23:38)
[2023-09-15] MEDS ORDERED: ACETAMINOPHEN TAB 650MG DOSE (2X325MG) PO PRN (23:55)
[2023-09-16] MEDS: NS 1,000 ML IV SCH (01:06)
[2023-09-16] MEDS ORDERED: ASPI-615 PO (03:01)
[2023-09-16] MEDS ORDERED: AMLO1TAB24 PO (03:01)
[2023-09-16] MEDS ORDERED: CHLO25TA PO (03:06)
[2023-09-16] MEDS ORDERED: LOSA100T46 PO (03:06)
[2023-09-16] MEDS ORDERED: RISP0.5T82 PO (03:06)
[2023-09-16] MEDS ORDERED: ATEN50TA2 PO (03:06)
[2023-09-16] MEDS ORDERED: MIRT-11 PO (03:06)
[2023-09-16] MEDS ORDERED: CLON0.3T PO (03:06)
[2023-09-16] MEDS ORDERED: POTA-151 PO (03:06)
[2023-09-16 05:53] LABS: HEMATOCRIT 36.2 % (42.0-52.0); HEMOGLOBIN 13.4 g/dl (13.5-17.5); MEAN CORPUSCULAR HEMOGLOBIN 30.8 pg (27.0-33.0); MEAN CORPUSCULAR VOLUME 83.2 fl (80.0-96.0); PLATELET COUNT, AUTOMATED 250 10^3/uL (150-450); RED BLOOD COUNT 4.35 10^6/uL (4.30-6.10); WHITE BLOOD COUNT 10.6 10^3/uL (4.0-10.0)
[2023-09-16 06:23] LABS: ALBUMIN 3.9 G/DL (3.2-5.2); ALKALINE PHOSPHATASE 64 U/L (46-116); ALT/SGPT 20 U/L (7.0-40); AST/SGOT 25 U/L (<34); BILIRUBIN,TOTAL 0.8 MG/DL (0.3-1.2); BLOOD UREA NITROGEN 9 MG/DL (9-23); CALCIUM LEVEL 8.5 MG/DL (8.5-10.1); CARBON DIOXIDE LEVEL 26 MMOL/L (20-31); CHLORIDE LEVEL 90 MMOL/L (98-107); CREATININE FOR GFR 0.72 MG/DL (0.70-1.30); GLOMERULAR FILTRATION RATE > 60.0 (>56); GLUCOSE, FASTING 114 MG/DL (60-100); MAGNESIUM LEVEL 1.3 MG/DL (1.8-2.4); PHOSPHORUS LEVEL 2.9 MG/DL (2.5-4.9); POTASSIUM SERUM 3.2 MMOL/L (3.5-5.1); SODIUM LEVEL 122 MMOL/L (136-145); TOTAL PROTEIN 5.8 G/DL (5.7-8.2)
[2023-09-16] MEDS ORDERED: HOME MED LIST COMPLETE! XX SCH (06:30)
[2023-09-16] MEDS: MAG SULF 1GM/100ML (MAG RUN) 1 GM in IV 1 EA IV SCH (07:42)
[2023-09-16] MEDS: POTASSIUM CHLORIDE 10MEQ SR TABLET PO ONE (07:42)
[2023-09-16] MEDS: MAGNESIUM OXIDE 400MG TAB (MAG-OX) PO SCH (09:26)
[2023-09-16] MEDS: POTASSIUM CHLORIDE 10MEQ SR TABLET PO SCH (09:27)
[2023-09-16 09:40] VITALS: BP 141/95; TEMP 97.9; O2SAT 98
[2023-09-16 16:06] VITALS: BP 137/87; TEMP 97.9; O2SAT 94
[2023-09-16 19:15] LABS: BLOOD UREA NITROGEN 8 MG/DL (9-23); CALCIUM LEVEL 8.5 MG/DL (8.5-10.1); CARBON DIOXIDE LEVEL 28 MMOL/L (20-31); CHLORIDE LEVEL 91 MMOL/L (98-107); CREATININE FOR GFR 0.73 MG/DL (0.70-1.30); GLOMERULAR FILTRATION RATE > 60.0 (>56); GLUCOSE, FASTING 105 MG/DL (60-100); POTASSIUM SERUM 3.7 MMOL/L (3.5-5.1); SODIUM LEVEL 122 MMOL/L (136-145)
[2023-09-16 20:00] VITALS: BP 138/79; TEMP 97.5; O2SAT 96
[2023-09-16] MEDS: risperiDONE 1 MG TAB PO SCH (20:01)
[2023-09-16] MEDS: MIRTAZAPINE 15 MG TAB PO SCH (20:01)
[2023-09-17 06:00] VITALS: BP 136/77; TEMP 97.7; O2SAT 95
[2023-09-17 06:35] LABS: BLOOD UREA NITROGEN 8 MG/DL (9-23); CALCIUM LEVEL 8.7 MG/DL (8.5-10.1); CARBON DIOXIDE LEVEL 27 MMOL/L (20-31); CHLORIDE LEVEL 95 MMOL/L (98-107); CREATININE FOR GFR 0.77 MG/DL (0.70-1.30); GLOMERULAR FILTRATION RATE > 60.0 (>56); GLUCOSE, FASTING 95 MG/DL (60-100); MAGNESIUM LEVEL 1.7 MG/DL (1.8-2.4); POTASSIUM SERUM 3.9 MMOL/L (3.5-5.1); SODIUM LEVEL 128 MMOL/L (136-145)
[2023-09-17] MEDS: MAGNESIUM OXIDE 400MG TAB (MAG-OX) PO SCH (09:07)
[2023-09-17] MEDS: ENOXAPARIN 40MG/0.4ML SYRINGE (J1650 PER 10MG) SC SCH (09:08)
[2023-09-17] MEDS: ATORVASTATIN 20 MG TAB PO SCH (11:03)
[2023-09-17] MEDS: amLODIPine 5 MG TAB PO SCH (11:04)
[2023-09-17] MEDS: DOCUSATE SODIUM 100MG CAPSULE PO PRN (11:04)
[2023-09-17] MEDS: CHLORTHALIDONE 25 MG TAB PO SCH (11:04)
[2023-09-17] MEDS: ASPIRIN 81MG ENTERIC TABLET PO SCH (11:04)
[2023-09-17] MEDS: PANTOPRAZOLE 40MG TAB (PROTONIX) PO SCH (12:51)
[2023-09-17 14:00] VITALS: BP 139/79; TEMP 97.7; O2SAT 96
[2023-09-17 19:52] VITALS: BP 123/79; TEMP 97.7; O2SAT 96
[2023-09-17] MEDS: FERROUS SULFATE 325MG TAB PO SCH (20:04)
[2023-09-17] MEDS: atenoloL 50 MG TAB PO SCH (20:04)
[2023-09-18] MEDS: SENOKOT S TAB PO PRN (05:21)
[2023-09-18 05:46] LABS: BASO # 0.1 10^3/uL (0.0-0.2); EOS # 0.2 10^3/uL (0.0-0.5); EOS % 2.5 % (0.0-3.0); HEMATOCRIT 36.5 % (42.0-52.0); HEMOGLOBIN 12.9 g/dl (13.5-17.5); LYMPH # 1.2 10^3/uL (1.5-5.0); LYMPH % 18.5 % (24.0-44.0); MEAN CORPUSCULAR HEMOGLOBIN 30.5 pg (27.0-33.0); MEAN CORPUSCULAR HGB CONC 35.3 g/dl (32.0-36.5); MEAN CORPUSCULAR VOLUME 86.3 fl (80.0-96.0); MONO # 0.6 10^3/uL (0.0-0.8); MONO % 9.2 % (2.0-8.0); NEUTROPHILS # 4.3 10^3/uL (1.5-8.5); NEUTROPHILS % 68.6 % (36.0-66.0); PLATELET COUNT, AUTOMATED 255 10^3/uL (150-450); RED BLOOD COUNT 4.23 10^6/uL (4.30-6.10); WHITE BLOOD COUNT 6.3 10^3/uL (4.0-10.0)
[2023-09-18 05:48] VITALS: BP 149/88; TEMP 97.7; O2SAT 98
[2023-09-18 06:10] LABS: BLOOD UREA NITROGEN 9 MG/DL (9-23); CALCIUM LEVEL 8.4 MG/DL (8.5-10.1); CARBON DIOXIDE LEVEL 26 MMOL/L (20-31); CHLORIDE LEVEL 102 MMOL/L (98-107); CREATININE FOR GFR 0.85 MG/DL (0.70-1.30); GLOMERULAR FILTRATION RATE > 60.0 (>56); GLUCOSE, FASTING 94 MG/DL (60-100); MAGNESIUM LEVEL 1.5 MG/DL (1.8-2.4); POTASSIUM SERUM 4.3 MMOL/L (3.5-5.1); SODIUM LEVEL 133 MMOL/L (136-145)
[2023-09-18] MEDS: MAG SULF 1GM/100ML (MAG RUN) 1 GM in IV 1 EA IV SCH (09:43)
[2023-09-18] MEDS: LOSARTAN 50MG TABLET PO SCH (09:48)
[2023-09-18 14:00] VITALS: BP 145/98; TEMP 97.3; O2SAT 98
[2023-09-18] MEDS: MAGNESIUM CITRATE 300ML BTL PO ONE (14:29)
[2023-09-18 20:24] VITALS: BP 115/75; TEMP 97.7; O2SAT 96
[2023-09-18] MEDS: SENOKOT S TAB PO SCH (20:44)
[2023-09-19 05:22] VITALS: BP 114/66; TEMP 97.9; O2SAT 97
[2023-09-19 06:20] LABS: BLOOD UREA NITROGEN 11 MG/DL (9-23); CALCIUM LEVEL 8.3 MG/DL (8.5-10.1); CARBON DIOXIDE LEVEL 25 MMOL/L (20-31); CHLORIDE LEVEL 100 MMOL/L (98-107); CREATININE FOR GFR 0.85 MG/DL (0.70-1.30); GLOMERULAR FILTRATION RATE > 60.0 (>56); GLUCOSE, FASTING 90 MG/DL (60-100); MAGNESIUM LEVEL 1.8 MG/DL (1.8-2.4); POTASSIUM SERUM 4.1 MMOL/L (3.5-5.1); SODIUM LEVEL 131 MMOL/L (136-145)
[2023-09-19 09:02] VITALS: BP 145/84
[2023-09-19] MEDS: INFLUENZA QUADRIVALENT PF VACCINE 0.5ML SYRINGE IM.IMMUN ONE (10:23)
[2023-09-19] MEDS ORDERED: MAGN400T2 PO (11:22)
[2023-09-19] MEDS ORDERED: RISP1TAB42 PO (11:22)
[2023-09-19] MEDS ORDERED: SODIUM CHLORIDE 1 GM TAB PO SCH (13:00)
== END 2023-09-19 12:27 | disposition home or self-care (01) | DRG 641 ==
LOC: M ED 18:55 → M ED INP 22:52 → M MSPAV 09-16 09:34
PROVIDERS: ADMIT Family Medicine; ATTEND Student in an Organized Health Care Education/Training Program
DX: E87.1 Hypo-osmolality and hyponatremia (principal); I10 Essential (primary) hypertension; K21.9 Gastro-esophageal reflux disease without esophagitis; G47.33 Obstructive sleep apnea (adult) (pediatric); Z95.5 Presence of coronary angioplasty implant and graft; I25.10 Atherosclerotic heart disease of native coronary artery without angina pectoris; E78.5 Hyperlipidemia, unspecified; Z95.0 Presence of cardiac pacemaker; F31.9 Bipolar disorder, unspecified; E87.6 Hypokalemia; R45.1 Restlessness and agitation; Z88.6 Allergy status to analgesic agent; Z79.82 Long term (current) use of aspirin; Z79.899 Other long term (current) drug therapy; D50.9 Iron deficiency anemia, unspecified; Z95.2 Presence of prosthetic heart valve; I25.2 Old myocardial infarction; Z98.84 Bariatric surgery status; F12.90 Cannabis use, unspecified, uncomplicated

== ENCOUNTER → 2023-09-23 | Outpatient (REF) | payer MEDICARE ==
[~2023-09-23] MED LIST changes: +AMLO1TAB24 PO; +ASPI-615 PO; +ATEN50TA2 PO; +LOSA100T46 PO; +MAGN400T2 PO; +MIRT-11 PO; +POTA-151 PO; +RISP0.5T82 PO; +RISP1TAB42 PO
[2023-09-23 15:57] LABS: BLOOD UREA NITROGEN 17 MG/DL (9-23); CALCIUM LEVEL 8.9 MG/DL (8.5-10.1); CARBON DIOXIDE LEVEL 28 MMOL/L (20-31); CHLORIDE LEVEL 105 MMOL/L (98-107); CREATININE FOR GFR 1.17 MG/DL (0.70-1.30); GLOMERULAR FILTRATION RATE > 60.0 (>56); GLUCOSE, FASTING 85 MG/DL (60-100); SODIUM LEVEL 138 MMOL/L (136-145)
== END ==
LOC: M SFHCADAM 10:01
PROVIDERS: ATTEND Family Medicine
DX: E87.1 Hypo-osmolality and hyponatremia (principal)

== ENCOUNTER → 2024-01-04 | Outpatient (REF) | payer MEDICARE ==
[~2024-01-04] MED LIST changes: +FLUO-365 PO; -FLUO20CA22 PO
[2024-01-04 13:02] LABS: HEMATOCRIT 46.4 % (42.0-52.0); HEMOGLOBIN 15.3 g/dl (13.5-17.5); MEAN CORPUSCULAR HEMOGLOBIN 29.8 pg (27.0-33.0); MEAN CORPUSCULAR VOLUME 90.3 fl (80.0-96.0); PLATELET COUNT, AUTOMATED 233 10^3/uL (150-450); RED BLOOD COUNT 5.14 10^6/uL (4.30-6.10); WHITE BLOOD COUNT 8.5 10^3/uL (4.0-10.0)
[2024-01-04 13:04] LABS: ALBUMIN 3.8 G/DL (3.2-5.2); ALKALINE PHOSPHATASE 80 U/L (46-116); ALT/SGPT 26 U/L (7.0-40); AST/SGOT 18 U/L (<34); BILIRUBIN,TOTAL 0.6 MG/DL (0.3-1.2); BLOOD UREA NITROGEN 11 MG/DL (9-23); CALCIUM LEVEL 9.9 MG/DL (8.5-10.1); CARBON DIOXIDE LEVEL 30 MMOL/L (20-31); CHLORIDE LEVEL 102 MMOL/L (98-107); CHOLESTEROL LEVEL 114 MG/DL (<200); CHOLESTEROL RISK RATIO 2.76 (<5); CREATININE FOR GFR 0.92 MG/DL (0.70-1.30); GLOMERULAR FILTRATION RATE > 60.0 (>56); GLUCOSE, FASTING 100 MG/DL (60-100); HDL CHOLESTEROL 41.2 MG/DL (>40); IRON (FE) 124 UG/DL (65-175); LDL CHOLESTEROL 54.6 MG/DL (<100); NON-HDL-C 72.8 MG/DL; PERCENT SATURATION 40.3 % (19.7-50.0); POTASSIUM SERUM 5.1 MMOL/L (3.5-5.1); SODIUM LEVEL 136 MMOL/L (136-145); TOTAL IRON BINDING CAPACITY 308 UG/DL (250-425); TOTAL PROTEIN 6.5 G/DL (5.7-8.2); TRIGLYCERIDES LEVEL 91 MG/DL (<150)
[2024-01-04 13:08] LABS: FERRITIN 24.8 NG/ML (10.5-307.3); TOTAL 25(OH) VITAMIN D 70.4 NG/ML (20.0-100.0)
[2024-01-04 13:09] LABS: VITAMIN B12 LEVEL 965 PG/ML (211-911)
[2024-01-04 13:38] LABS: HEMOGLOBIN A1c 5.2 % (4.0-6.0)
== END ==
LOC: M SFHCADAM 09:47
PROVIDERS: ATTEND Family Medicine
DX: I11.9 Hypertensive heart disease without heart failure (principal); Z98.84 Bariatric surgery status; D50.8 Other iron deficiency anemias; E55.9 Vitamin D deficiency, unspecified; Z13.1 Encounter for screening for diabetes mellitus

== ENCOUNTER 2024-03-19 07:48 | Emergency (ER) | payer MEDICARE ==
[~2024-03-19] VITALS: Ht 172.7 cm; Wt 101.8 kg
[2024-03-19 09:19] LABS: BASO % 0.2 % (0.0-1.0); EOS # 0.1 10^3/uL (0.0-0.5); EOS % 0.7 % (0.0-3.0); HEMATOCRIT 32.7 % (42.0-52.0); HEMOGLOBIN 11.3 g/dl (13.5-17.5); LYMPH # 0.9 10^3/uL (1.5-5.0); LYMPH % 11.4 % (24.0-44.0); MEAN CORPUSCULAR HGB CONC 34.6 g/dl (32.0-36.5); MEAN CORPUSCULAR VOLUME 86.7 fl (80.0-96.0); MONO # 0.5 10^3/uL (0.0-0.8); MONO % 6.5 % (2.0-8.0); NEUTROPHILS # 6.6 10^3/uL (1.5-8.5); NEUTROPHILS % 80.7 % (36.0-66.0); PLATELET COUNT, AUTOMATED 260 10^3/uL (150-450); RED BLOOD COUNT 3.77 10^6/uL (4.30-6.10); WHITE BLOOD COUNT 8.2 10^3/uL (4.0-10.0)
[2024-03-19] MEDS: PANTOPRAZOLE 40MG VIAL IV ONE (09:22)
[2024-03-19 09:30] LABS: INR 1.04; PROTHROMBIN TIME 13.3 SECONDS (12.5-14.5)
[2024-03-19 10:57] LABS: ALBUMIN 3.7 G/DL (3.2-5.2); ALKALINE PHOSPHATASE 61 U/L (46-116); ALT/SGPT 15 U/L (7.0-40); AST/SGOT 14 U/L (<34); BILIRUBIN,DIRECT 0.3 MG/DL (<0.4); BILIRUBIN,TOTAL 0.6 MG/DL (0.3-1.2); BLOOD UREA NITROGEN 45 MG/DL (9-23); CALCIUM LEVEL 8.8 MG/DL (8.5-10.1); CARBON DIOXIDE LEVEL 22 MMOL/L (20-31); CHLORIDE LEVEL 106 MMOL/L (98-107); CREATININE FOR GFR 1.18 MG/DL (0.70-1.30); GLOMERULAR FILTRATION RATE > 60.0 (>56); GLUCOSE, FASTING 115 MG/DL (60-100); POTASSIUM SERUM 5.5 MMOL/L (3.5-5.1); SODIUM LEVEL 134 MMOL/L (136-145); TOTAL PROTEIN 6.1 G/DL (5.7-8.2)
[2024-03-19] MEDS: NS 1,000 ML IV ONE (11:44)
[2024-03-19] MEDS: PATIROMER SORBITEX CALCIUM 8.4 GM POWDER PACKET (VELTASSA) PO ONE (11:44)
[2024-03-19 13:32] LABS: HEMOGLOBIN 10.8 g/dl (13.5-17.5)
[2024-03-19] MEDS ORDERED: PROT1TAB2 PO (13:56)
[2024-03-19] MEDS ORDERED: CARA1TAB6 PO (13:56)
[2024-03-19 14:06] VITALS: BP 112/76; TEMP 96.2; O2SAT 97
[2024-03-20] MEDS ORDERED: ATOR80TA59 PO (07:40)
[2024-03-20] MEDS ORDERED: RISP-105 PO (07:40)
== END 2024-03-19 14:28 | disposition home or self-care (01) ==
LOC: M ED 07:48
DX: K92.1 Melena (principal); E87.5 Hyperkalemia; K21.9 Gastro-esophageal reflux disease without esophagitis; D64.9 Anemia, unspecified; R51.9 Headache, unspecified; I25.2 Old myocardial infarction; Z88.5 Allergy status to narcotic agent; Z88.8 Allergy status to other drugs, medicaments and biological substances; Z98.84 Bariatric surgery status; Z87.891 Personal history of nicotine dependence; Z85.528 Personal history of other malignant neoplasm of kidney; Z86.79 Personal history of other diseases of the circulatory system; Z79.82 Long term (current) use of aspirin; Z79.02 Long term (current) use of antithrombotics/antiplatelets; Z79.899 Other long term (current) drug therapy
CPT/HCPCS: 80048; 80076; 85014; 85018; 85025; 85610; 99284; J2470

== ENCOUNTER 2024-03-21 14:00 | Emergency (ER) | payer MEDICARE ==
[~2024-03-21] VITALS: Ht 172.7 cm; Wt 102.3 kg
[~2024-03-21 14:00] MED LIST changes: +GABA-1490 PO; -GABA600T4 PO
[2024-03-21 14:01] VITALS: TEMP 97.4
[2024-03-21 16:51] LABS: LIPASE 39 U/L (12-53)
[2024-03-21 16:54] LABS: ALBUMIN 3.5 G/DL (3.2-5.2); ALKALINE PHOSPHATASE 51 U/L (46-116); ALT/SGPT 18 U/L (7.0-40); AST/SGOT 20 U/L (<34); BILIRUBIN,DIRECT 0.1 MG/DL (<0.4); BILIRUBIN,TOTAL 0.3 MG/DL (0.3-1.2); BLOOD UREA NITROGEN 17 MG/DL (9-23); CALCIUM LEVEL 8.4 MG/DL (8.5-10.1); CARBON DIOXIDE LEVEL 24 MMOL/L (20-31); CHLORIDE LEVEL 107 MMOL/L (98-107); CREATININE FOR GFR 1.15 MG/DL (0.70-1.30); GLOMERULAR FILTRATION RATE > 60.0 (>56); GLUCOSE, FASTING 101 MG/DL (60-100); SODIUM LEVEL 135 MMOL/L (136-145); TOTAL PROTEIN 5.7 G/DL (5.7-8.2)
[2024-03-21] MEDS: PANTOPRAZOLE 40MG VIAL IV ONE (16:54)
[2024-03-21 17:09] LABS: BASO # 0.1 10^3/uL (0.0-0.2); BASO % 0.7 % (0.0-1.0); EOS # 0.1 10^3/uL (0.0-0.5); EOS % 1.9 % (0.0-3.0); HEMATOCRIT 24.9 % (42.0-52.0); HEMOGLOBIN 8.5 g/dl (13.5-17.5); LYMPH # 1.5 10^3/uL (1.5-5.0); LYMPH % 20.8 % (24.0-44.0); MEAN CORPUSCULAR HGB CONC 34.1 g/dl (32.0-36.5); MONO # 0.7 10^3/uL (0.0-0.8); MONO % 9.2 % (2.0-8.0); NEUTROPHILS % 67.1 % (36.0-66.0); PLATELET COUNT, AUTOMATED 231 10^3/uL (150-450); RED BLOOD COUNT 2.83 10^6/uL (4.30-6.10); WHITE BLOOD COUNT 7.4 10^3/uL (4.0-10.0)
[2024-03-21 17:23] LABS: INR 1.11; PARTIAL THROMBOPLASTIN TIME 25.8 SECONDS (24.8-34.2)
[2024-03-21] MEDS: NS 1,000 ML IV SCH (20:25)
[2024-03-21 20:28] LABS: HEMATOCRIT 24.6 % (42.0-52.0); HEMOGLOBIN 8.5 g/dl (13.5-17.5); MEAN CORPUSCULAR HEMOGLOBIN 30.4 pg (27.0-33.0); MEAN CORPUSCULAR HGB CONC 34.6 g/dl (32.0-36.5); MEAN CORPUSCULAR VOLUME 87.9 fl (80.0-96.0); PLATELET COUNT, AUTOMATED 229 10^3/uL (150-450); WHITE BLOOD COUNT 7.6 10^3/uL (4.0-10.0)
[2024-03-21 21:00] VITALS: BP 116/73; O2SAT 97
== END 2024-03-21 21:12 | disposition short-term general hospital (02) ==
LOC: M ED 14:00
DX: K92.2 Gastrointestinal hemorrhage, unspecified (principal); K21.9 Gastro-esophageal reflux disease without esophagitis; I25.2 Old myocardial infarction; Z86.79 Personal history of other diseases of the circulatory system; Z98.84 Bariatric surgery status; Z88.5 Allergy status to narcotic agent; Z88.8 Allergy status to other drugs, medicaments and biological substances; Z79.82 Long term (current) use of aspirin; Z79.02 Long term (current) use of antithrombotics/antiplatelets; Z79.899 Other long term (current) drug therapy
CPT/HCPCS: 73140; 80048; 80053; 80076; 83690; 85025; 85027; 85610; 85730; 86850; 86900; 86901; 86920; 93005; 93041; 94760; 96374; 99285; G0463; J2470

== ENCOUNTER → 2024-03-21 | Outpatient (CLI) | payer MEDICARE ==
[~2024-03-21] MED LIST changes: +ATOR80TA59 PO; +CARA1TAB6 PO; +GABA-1490 PO; -GABA600T4 PO; +PROT1TAB2 PO; +RISP-105 PO
== END ==
LOC: M SOG 11:36
PROVIDERS: ATTEND Physician Assistant
DX: S62.641A Nondisplaced fracture of proximal phalanx of left index finger, initial encounter for closed fracture (principal)

== ENCOUNTER → 2024-03-21 | Outpatient (REF) | payer MEDICARE ==
[~2024-03-21] MED LIST changes: -GABA-1490 PO; +GABA600T4 PO
[2024-03-21 12:24] LABS: BASO # 0.1 10^3/uL (0.0-0.2); BASO % 0.7 % (0.0-1.0); EOS # 0.1 10^3/uL (0.0-0.5); EOS % 1.5 % (0.0-3.0); HEMATOCRIT 26.6 % (42.0-52.0); HEMOGLOBIN 9.1 g/dl (13.5-17.5); LYMPH # 1.5 10^3/uL (1.5-5.0); LYMPH % 20.8 % (24.0-44.0); MEAN CORPUSCULAR HEMOGLOBIN 29.9 pg (27.0-33.0); MEAN CORPUSCULAR HGB CONC 34.2 g/dl (32.0-36.5); MEAN CORPUSCULAR VOLUME 87.5 fl (80.0-96.0); MONO # 0.7 10^3/uL (0.0-0.8); MONO % 10.3 % (2.0-8.0); NEUTROPHILS # 4.8 10^3/uL (1.5-8.5); NEUTROPHILS % 66.3 % (36.0-66.0); PLATELET COUNT, AUTOMATED 264 10^3/uL (150-450); RED BLOOD COUNT 3.04 10^6/uL (4.30-6.10); WHITE BLOOD COUNT 7.2 10^3/uL (4.0-10.0)
[2024-03-21 12:48] LABS: ALBUMIN 3.6 G/DL (3.2-5.2); ALKALINE PHOSPHATASE 56 U/L (46-116); ALT/SGPT 15 U/L (7.0-40); AST/SGOT 12 U/L (<34); BILIRUBIN,TOTAL 0.5 MG/DL (0.3-1.2); BLOOD UREA NITROGEN 16 MG/DL (9-23); CALCIUM LEVEL 8.4 MG/DL (8.5-10.1); CARBON DIOXIDE LEVEL 25 MMOL/L (20-31); CHLORIDE LEVEL 108 MMOL/L (98-107); GLOMERULAR FILTRATION RATE > 60.0 (>56); GLUCOSE, FASTING 100 MG/DL (60-100); POTASSIUM SERUM 4.9 MMOL/L (3.5-5.1); SODIUM LEVEL 137 MMOL/L (136-145); TOTAL PROTEIN 5.9 G/DL (5.7-8.2)
== END ==
LOC: M SFHCADAM 10:10
PROVIDERS: ATTEND Family Medicine
DX: K92.1 Melena (principal); E87.5 Hyperkalemia

== ENCOUNTER → 2024-03-30 | Outpatient (CLI) | payer MEDICARE ==
[2024-03-30 10:39] LABS: BASO # 0.1 10^3/uL (0.0-0.2); BASO % 0.6 % (0.0-1.0); EOS # 0.2 10^3/uL (0.0-0.5); EOS % 2.3 % (0.0-3.0); HEMATOCRIT 26.5 % (42.0-52.0); HEMOGLOBIN 8.3 g/dl (13.5-17.5); LYMPH # 0.9 10^3/uL (1.5-5.0); LYMPH % 11.9 % (24.0-44.0); MEAN CORPUSCULAR HEMOGLOBIN 28.6 pg (27.0-33.0); MEAN CORPUSCULAR HGB CONC 31.3 g/dl (32.0-36.5); MEAN CORPUSCULAR VOLUME 91.4 fl (80.0-96.0); MONO # 0.6 10^3/uL (0.0-0.8); MONO % 8.2 % (2.0-8.0); NEUTROPHILS % 76.7 % (36.0-66.0); PLATELET COUNT, AUTOMATED 433 10^3/uL (150-450); WHITE BLOOD COUNT 7.8 10^3/uL (4.0-10.0)
[2024-03-30 11:06] LABS: CALCIUM LEVEL 9.9 MG/DL (8.5-10.1); CREATININE FOR GFR 1.81 MG/DL (0.70-1.30); GLOMERULAR FILTRATION RATE 41.5 (>56)
== END ==
LOC: M LAB 10:00
PROVIDERS: ATTEND Physician Assistant
DX: K92.2 Gastrointestinal hemorrhage, unspecified (principal); I11.9 Hypertensive heart disease without heart failure; Z98.84 Bariatric surgery status

== ENCOUNTER → 2024-04-05 | Outpatient (CLI) | payer MEDICARE | LOC: M SOG 11:26 | PROVIDERS: ATTEND Orthopaedic Surgery | DX: S62.641D Nondisplaced fracture of proximal phalanx of left index finger, subsequent encounter for fracture with routine healing (principal) ==

== ENCOUNTER → 2024-04-07 | Outpatient (REF) | payer MEDICARE ==
[2024-04-07 18:00] LABS: BASO # 0.1 10^3/uL (0.0-0.2); BASO % 0.8 % (0.0-1.0); EOS # 0.2 10^3/uL (0.0-0.5); EOS % 3.4 % (0.0-3.0); HEMATOCRIT 27.7 % (42.0-52.0); HEMOGLOBIN 8.6 g/dl (13.5-17.5); LYMPH # 1.5 10^3/uL (1.5-5.0); LYMPH % 23.9 % (24.0-44.0); MEAN CORPUSCULAR HEMOGLOBIN 28.1 pg (27.0-33.0); MEAN CORPUSCULAR VOLUME 90.5 fl (80.0-96.0); MONO # 0.5 10^3/uL (0.0-0.8); MONO % 7.8 % (2.0-8.0); NEUTROPHILS # 3.9 10^3/uL (1.5-8.5); NEUTROPHILS % 63.6 % (36.0-66.0); PLATELET COUNT, AUTOMATED 392 10^3/uL (150-450); RED BLOOD COUNT 3.06 10^6/uL (4.30-6.10); WHITE BLOOD COUNT 6.1 10^3/uL (4.0-10.0)
== END ==
LOC: M SFHCADAM 13:36
PROVIDERS: ATTEND Physician Assistant
DX: K92.2 Gastrointestinal hemorrhage, unspecified (principal)

== ENCOUNTER → 2024-10-24 | Outpatient (REF) | payer MEDICARE ==
[~2024-10-24] MED LIST changes: +ATOR-398 PO; +GABA-1172 PO; -GABA-282 PO; -LIPI80TA PO
[2024-10-24 18:08] LABS: HEMATOCRIT 38.5 % (42.0-52.0); HEMOGLOBIN 10.9 g/dl (13.5-17.5); MEAN CORPUSCULAR HEMOGLOBIN 19.5 pg (27.0-33.0); MEAN CORPUSCULAR HGB CONC 28.3 g/dl (32.0-36.5); MEAN CORPUSCULAR VOLUME 68.8 fl (80.0-96.0); PLATELET COUNT, AUTOMATED 370 10^3/uL (150-450); WHITE BLOOD COUNT 11.8 10^3/uL (4.0-10.0)
[2024-10-24 18:17] LABS: ALBUMIN 4.1 G/DL (3.2-5.2); ALKALINE PHOSPHATASE 73 U/L (40-129); ALT/SGPT 16 U/L (7.0-40); AST/SGOT 19 U/L (<34); BILIRUBIN,TOTAL 0.4 MG/DL (0.3-1.2); BLOOD UREA NITROGEN 17 MG/DL (9-23); CALCIUM LEVEL 10.1 MG/DL (8.5-10.1); CARBON DIOXIDE LEVEL 26 MMOL/L (20-31); CHLORIDE LEVEL 104 MMOL/L (98-107); CHOLESTEROL LEVEL 93 MG/DL (<200); CHOLESTEROL RISK RATIO 2.34 (<5); CREATININE FOR GFR 1.06 MG/DL (0.70-1.30); FERRITIN 2.2 NG/ML (10.5-307.3); FREE T4 1.34 NG/DL (0.89-1.76); GLOMERULAR FILTRATION RATE > 60.0 (>56); GLUCOSE, FASTING 89 MG/DL (60-100); HDL CHOLESTEROL 39.6 MG/DL (>40); IRON (FE) 21 UG/DL (65-175); LDL CHOLESTEROL 40.6 MG/DL (<100); NON-HDL-C 53.4 MG/DL; PERCENT SATURATION 5.3 % (19.7-50.0); POTASSIUM SERUM 5.4 MMOL/L (3.5-5.1); SODIUM LEVEL 137 MMOL/L (136-145); THYROID STIMULATING HORMONE 1.846 uIU/ML (0.55-4.78); TOTAL IRON BINDING CAPACITY 396 UG/DL (250-425); TOTAL PROTEIN 7.1 G/DL (5.7-8.2); TRIGLYCERIDES LEVEL 64 MG/DL (<150)
[2024-10-24 18:19] LABS: FOLATE 15.41 NG/ML (>5.4); VITAMIN B12 LEVEL 619 PG/ML (211-911)
[2024-10-24 18:25] LABS: HEMOGLOBIN A1c 5.6 % (4.0-6.0)
== END ==
LOC: M SFHCADAM 11:41
PROVIDERS: ATTEND Family Medicine
DX: I11.9 Hypertensive heart disease without heart failure (principal); E78.5 Hyperlipidemia, unspecified; Z98.84 Bariatric surgery status; E55.9 Vitamin D deficiency, unspecified; K91.2 Postsurgical malabsorption, not elsewhere classified; D50.9 Iron deficiency anemia, unspecified; Z12.5 Encounter for screening for malignant neoplasm of prostate
CPT/HCPCS: 80053; 80061; 82306; 82607; 82728; 82746; 83036; 83550; 84439; 84443; 85027; G0103

== ENCOUNTER → 2024-11-17 | Outpatient (REF) | payer MEDICARE ==
[2024-11-17 13:31] LABS: HEMATOCRIT 32.1 % (42.0-52.0); HEMOGLOBIN 9.3 g/dl (13.5-17.5); MEAN CORPUSCULAR HEMOGLOBIN 20.2 pg (27.0-33.0); MEAN CORPUSCULAR VOLUME 69.6 fl (80.0-96.0); PLATELET COUNT, AUTOMATED 294 10^3/uL (150-450); RED BLOOD COUNT 4.61 10^6/uL (4.30-6.10); WHITE BLOOD COUNT 9.4 10^3/uL (4.0-10.0)
[2024-11-17 13:39] LABS: FERRITIN 2.7 NG/ML (10.5-307.3); FOLATE 15.21 NG/ML (>5.4)
[2024-11-17 13:41] LABS: PERCENT SATURATION 4.3 % (19.7-50.0)
[2024-11-20 14:52] LABS: FREE KAPPA LIGHT CHAINS SERUM 21.3 mg/L (3.3-19.4); FREE LAMBDA LIGHT CHAINS SERUM 18.5 mg/L (5.7-26.3); KAPPA/LAMBDA RATIO SERUM 1.15 (0.26-1.65)
== END ==
LOC: M SFHCADAM 08:19
PROVIDERS: ATTEND Family Medicine
DX: D53.9 Nutritional anemia, unspecified (principal)

== ENCOUNTER → 2024-11-24 | Outpatient (REF) | payer MEDICARE ==
[~2024-11-24] MED LIST changes: +AMLO-751 PO; -AMLO10TA PO; +TOPI-256 PO; -TOPI25TA10 PO
[2024-11-24 18:44] LABS: HEMATOCRIT 33.1 % (42.0-52.0); HEMOGLOBIN 9.6 g/dl (13.5-17.5); PLATELET COUNT, AUTOMATED 409 10^3/uL (150-450); WHITE BLOOD COUNT 11.7 10^3/uL (4.0-10.0)
[2024-11-24 18:53] LABS: CREATININE FOR GFR 1.02 MG/DL (0.70-1.30); GLOMERULAR FILTRATION RATE 85.7 (>56); POTASSIUM SERUM 5.2 MMOL/L (3.5-5.1)
== END ==
LOC: M SFHCADAM 14:42
PROVIDERS: ATTEND Family Medicine
DX: D50.9 Iron deficiency anemia, unspecified (principal); E87.1 Hypo-osmolality and hyponatremia

== ENCOUNTER 2024-11-29 11:13 | Outpatient (CLI) | payer MEDICARE ==
[~2024-11-29] VITALS: Ht 172.7 cm; Wt 100.0 kg
[~2024-11-29 11:13] MED LIST changes: +ALBUTEROL SULFATE 2.5MG/0.5ML INH CONCENTRATE NEB SOLN INH PRN; +EPINEPHrine INJ 1 MG/ML 1ML AMP IM PRN; +diphenhydrAMINE 50MG/ML VIAL IV PRN; +methylPREDNISolone 125MG 2ML VIAL IV PRN
[2024-11-29 11:20] VITALS: BP 117/74; O2SAT 98
[2024-11-29] MEDS: ACETAMINOPHEN 650MG PO PRIOR TO INFUSION PO ONE (11:27)
[2024-11-29] MEDS: methylPREDNISolone 40MG 1ML VIAL IV ONE (11:27)
[2024-11-29] MEDS: diphenhydrAMINE 25MG PO PRIOR TO INFUSION PO ONE (11:27)
[2024-11-29] MEDS: IRON SUCROSE 25 MG in NS 23.75 ML IV ONE (12:01)
[2024-11-29] MEDS: IRON SUCROSE 475 MG in NS 250 ML IV ONE (13:00)
[2024-11-29 14:00] VITALS: BP 112/70; O2SAT 97
[2024-11-29 15:00] VITALS: BP 119/78; O2SAT 97
[2024-11-29 17:15] VITALS: BP 134/80; O2SAT 97
== END 2024-11-29 17:15 | disposition home or self-care (01) ==
LOC: M INFU 11:13
PROVIDERS: ATTEND Family Medicine
DX: D50.9 Iron deficiency anemia, unspecified (principal); Z88.5 Allergy status to narcotic agent; Z88.6 Allergy status to analgesic agent
CPT/HCPCS: 96365; 96366; 96375; J1756; J2919

== ENCOUNTER 2024-12-13 11:06 | Outpatient (CLI) | payer MEDICARE ==
[~2024-12-13] VITALS: Ht 172.7 cm; Wt 100.0 kg
[2024-12-13 11:20] VITALS: BP 115/71; O2SAT 98
[2024-12-13] MEDS: methylPREDNISolone 40MG 1ML VIAL IV ONE (11:32)
[2024-12-13] MEDS: ACETAMINOPHEN 650MG PO PRIOR TO INFUSION PO ONE (11:33)
[2024-12-13] MEDS: diphenhydrAMINE 25MG PO PRIOR TO INFUSION PO ONE (11:33)
[2024-12-13] MEDS: IRON SUCROSE 500 MG in NS 250 ML OVER 4 HRS IV ONE (11:52)
[2024-12-13 13:00] VITALS: BP 120/84; O2SAT 100
[2024-12-13 14:00] VITALS: BP 116/70; O2SAT 98
[2024-12-13 14:58] VITALS: BP 120/81; O2SAT 97
[2024-12-13 16:00] VITALS: BP 162/80; O2SAT 97
== END 2024-12-13 16:00 | disposition home or self-care (01) ==
LOC: M INFU 11:06
PROVIDERS: ATTEND Family Medicine
DX: D50.9 Iron deficiency anemia, unspecified (principal); Z88.5 Allergy status to narcotic agent; Z88.6 Allergy status to analgesic agent
CPT/HCPCS: 96365; 96366; 96375; J1756; J2919

== ENCOUNTER → 2024-12-15 | Outpatient (REF) | payer MEDICARE ==
[~2024-12-15] MED LIST changes: -ALBUTEROL SULFATE 2.5MG/0.5ML INH CONCENTRATE NEB SOLN INH PRN; -EPINEPHrine INJ 1 MG/ML 1ML AMP IM PRN; -diphenhydrAMINE 50MG/ML VIAL IV PRN; -methylPREDNISolone 125MG 2ML VIAL IV PRN
[2024-12-15 13:52] LABS: CALCIUM LEVEL 8.9 MG/DL (8.5-10.1); CREATININE FOR GFR 1.12 MG/DL (0.70-1.30); GLOMERULAR FILTRATION RATE 76.6 (>56); PERCENT SATURATION 79.4 % (19.7-50.0); POTASSIUM SERUM 4.6 MMOL/L (3.5-5.1)
[2024-12-15 13:54] LABS: FERRITIN 237.2 NG/ML (10.5-307.3)
[2024-12-15 13:56] LABS: HEMATOCRIT 36.5 % (42.0-52.0); HEMOGLOBIN 10.6 g/dl (13.5-17.5); MEAN CORPUSCULAR HEMOGLOBIN 21.5 pg (27.0-33.0); MEAN CORPUSCULAR VOLUME 74.2 fl (80.0-96.0); PLATELET COUNT, AUTOMATED 251 10^3/uL (150-450); RED BLOOD COUNT 4.92 10^6/uL (4.30-6.10); WHITE BLOOD COUNT 6.9 10^3/uL (4.0-10.0)
== END ==
LOC: M SFHCADAM 09:23
PROVIDERS: ATTEND Family Medicine
DX: K27.4 Chronic or unspecified peptic ulcer, site unspecified, with hemorrhage (principal); D50.9 Iron deficiency anemia, unspecified; E87.1 Hypo-osmolality and hyponatremia

== ENCOUNTER → 2025-04-09 | Outpatient (REF) | payer MEDICARE, BC ==
[2025-04-09 16:24] LABS: IRON (FE) 99.0 UG/DL (65-175); PERCENT SATURATION 31.6 % (19.7-50.0); PHOSPHORUS LEVEL 2.2 MG/DL (2.5-4.9)
[2025-04-09 16:25] LABS: TOTAL 25(OH) VITAMIN D 63.9 NG/ML (20.0-100.0)
[2025-04-09 16:27] LABS: VITAMIN B12 LEVEL 872.0 PG/ML (211-911)
[2025-04-13 18:03] LABS: VITAMIN A, RETINOL LEVEL 53 mcg/dL (38-98)
[2025-04-16 16:28] LABS: VITAMIN B1 LEVEL WHOLE BLOOD 138 nmol/L (78-185)
== END ==
LOC: M LAB REF 14:23
PROVIDERS: ATTEND Internal Medicine
DX: Z98.84 Bariatric surgery status (principal); Z79.899 Other long term (current) drug therapy